=== PATIENT | female | born 1975 | race Caucasian/White ===

== ENCOUNTER 2017-02-05 09:51 | Observation (INO) | payer OTHER ==
[2017-02-05 12:04] LABS: Glucose,Whole Blood 301 mg/dL (75-99)
[2017-02-05 12:06] VITALS: RESP 16
[2017-02-05] MEDS ORDERED: ONDANSETRON 4 MG/2 ML VIAL IVP PRN (13:34)
[2017-02-05] MEDS ORDERED: SODIUM CHLORIDE 0.9% 1,000 ML IV SCH (13:45)
[2017-02-05] MEDS ORDERED: PANTOPRAZOLE 40 MG/10 ML VIAL IVP SCH (13:45)
[2017-02-05] MEDS ORDERED: KETOTIFEN 0.025% OPHTH DROPS 5 ML BTL BOTH EYES PRN (13:55)
[2017-02-05] MEDS ORDERED: ALPRAZolam 0.25 MG TAB PO PRN (13:55)
[2017-02-05] MEDS ORDERED: IBUPROFEN 800 MG TAB PO PRN (13:55)
[2017-02-05] MEDS ORDERED: GABAPENTIN 300 MG CAP PO SCH (14:00)
[2017-02-05] MEDS ORDERED: metFORMIN 500 MG TAB PO SCH (14:00)
[2017-02-05] MEDS ORDERED: CITALOPRAM HYDROBROMIDE 20 MG TAB PO SCH (14:00)
[2017-02-05] MEDS ORDERED: FAMOTIDINE 20 MG TAB PO SCH (14:00)
[2017-02-05 14:10] LABS: Basophils # (A) 0.1 k/uL (0-0.2); Basophils % (A) 1 %; CH 27.1; CHCM 34.5; Eosinophils # (A) 0.1 k/uL (0-0.7); Eosinophils % (A) 1 %; HCT 37.2 % (34.0-46.0); HDW 3.14; Luc # (Auto) 0.18; Luc % (Auto) 2; Lymphocytes # (A) 1.9 k/uL (1.0-4.8); Lymphocytes % (A) 17 %; MCH 27.6 pg (25.0-35.0); MCHC 35.1 g/dL (31.0-37.0); MCV 78.8 fL (80.0-100.0); Mean Platelet Volume 7.2; Monocytes # (A) 0.4 k/uL (0-1.0); Monocytes % (A) 4 %; Neutrophils # (A) 8.4 k/uL (1.3-7.7); Neutrophils % (A) 76 %; RBC 4.72 m/uL (3.80-5.40); RDW 13.7 % (11.5-15.5); WBC 11.2 k/uL (3.8-10.6); WBC (Perox) 11.54
[2017-02-05 14:19] VITALS: BMI 27.3
[2017-02-05 14:33] LABS: ALT 34 U/L (9-52); AST 16 U/L (14-36); Alkaline Phosphatase 138 U/L (38-126); Anion Gap 9 mmol/L; Blood Urea Nitrogen 8 mg/dL (7-17); Calcium 8.7 mg/dL (8.4-10.2); Carbon Dioxide 25 mmol/L (22-30); Chloride 100 mmol/L (98-107); Glucose 267 mg/dL (74-99); Non-African American GFR(MDRD) >60 (>60 ml/min/1.73 sqM); Potassium 4.6 mmol/L (3.5-5.1); Sodium 134 mmol/L (137-145); Total Bilirubin 0.3 mg/dL (0.2-1.3); Total Protein 6.4 g/dL (6.3-8.2)
[2017-02-05] MEDS ORDERED: TEMAZEPAM 15 MG CAP PO PRN (15:14)
[2017-02-05] MEDS ORDERED: traMADol 50 MG TAB PO PRN (15:14)
[2017-02-05] MEDS ORDERED: LORazepam 0.5 MG TAB PO PRN (15:14)
[2017-02-05 15:34] VITALS: BP 131/87; PULSE 88; TEMP 97.9
[2017-02-05] MEDS ORDERED: INSULIN LISPRO (humaLOG) 300 UNIT/3 ML VIAL SQ SCH (17:30)
[2017-02-05] MEDS ORDERED: INSULIN GLARGINE 100 UNIT/ML 10 ML VIAL SQ SCH (21:00)
[2017-02-06 14:32] LABS: Hemoglobin A1C 12.4 % (4.2-6.1)
--- NOTE | 2017-02-06 19:30 | HP ---
CHIEF COMPLAINT: Abdominal pain. Hematuria. HISTORY OF PRESENT ILLNESS: This 41 year old woman with past medical history of asthma, diabetes mellitus, hypertension, hyperlipidemia, being followed by a primary physician in the [place] area was having complaints of left loin pain about two weeks ago with hematuria. The patient was evaluated and subsequently the patient had complaints of pain and the patient went to [facility] again. The patient also had complaints of abdominal pain also. CT scan showed multiple abnormalities including hepatomegaly with multiple probably masses 4.3 cm cystic mass in the left ovary. The patient was subsequently referred to [facility] as a directed admission and was admitted for further evaluation and treatment. There is no history of any fever , rigors or chills. No history of headache, loss of consciousness or seizures. Past medical history of asthma, diabetes mellitus, hyperlipidemia, hypertension. Medications are home medications are: 1. Yeast. 2. Glucophage 1000 mg po b.i.d. 3. one drop both eyes daily prn. 4. Lantus 30 units subcu daily. 5. Motrin 800 mg po b.i.d. 6. Neurontin 600 mg po b.i.d. 7. Celexa 40 mg daily. 8. Xanax 0.25 mg b.i.d. prn. 9. Zantac 150 mg po b.i.d. prn. ALLERGIES: MORPHINE. FAMILY HISTORY: History of CVA/TIA. Dementia. SOCIAL HISTORY: Previous history of smoking. No history of current smoking. No alcohol intake. REVIEW OF SYSTEMS: ENT: No diminished vision. No diminished hearing. CARDIOVASCULAR: No angina or palpitations. RESPIRATORY: as mentioned earlier. GI: As mentioned earlier. : As mentioned earlier. NERVOUS SYSTEM: No numbness or weakness. ALLERGY/IMMUNOLOGY: No asthma or hayfever. MUSCULOSKELETAL: As mentioned earlier. HEMATOLOGY/ONCOLOGY: No history of anemia. ENDOCRINE: As mentioned earlier. CONSTITUTIONAL: As mentioned earlier. DERMATOLOGY: Negative. RHEUMATOLOGY: Negative. PSYCHIATRIC: As mentioned earlier. PHYSICAL EXAM: Alert and oriented times three. Pulse 91. Blood pressure 192/ 84. Respirations 16. Temperature 98.2. Pulse ox 97% on room air. HEENT: Conjunctivae normal. Oral mucosa moist. NECK: No JVD. No carotid bruit. No lymph node enlargement. CARDIOVASCULAR: S1, S2 normal. No S3, no S4. RESPIRATORY: Breath sounds diminished at the bases. A few rhonchi. No crackles. ABDOMEN: Soft, mild diffuse tenderness on palpation. No guarding. No rigidity. No mass palpable. No ascites. No hepatosplenomegaly. LEGS: No edema. No swelling. NERVOUS SYSTEM: Higher functions as mentioned earlier. Moves all four limbs. No focal motor or sensory deficits. LYMPHATICS: No lymph nodes palpable in the neck, axillae or groin. SKIN: No ulcer, rash or bleeding. LABS: WBC ntd hemoglobin 13. Sodium 134. ASSESSMENT: 1. Abdominal pain, hematuria for evaluation, rule out acute glomerular nephritis. 2. Hepatomegaly with multiple hepatic masses. 3. 4.3 cm cystic left ovarian mass. 4. Hyponatremia. 5. Diabetes mellitus Type 2. 6. Asthma. 7. Increased WBC. 8. History of hyperlipidemia. 9. History of chronic yeast infection. 10. History of migraines. 12. Anxiety, depression. 13. FULL CODE. RECOMMENDATIONS AND DISCUSSION: In this 41 year old woman who presented with multiple complex medical issues, we will monitor the patient closely, continue the current medications, continue symptomatic treatment. Otherwise, at this time monitor blood sugars closely. I would also recommend ultrasound of the abdomen to evaluate the liver masses further. Dr. Spivey and nephrology will be consulted. Prognosis guarded because of multiple complex medical issues. Symptomatic treatment for the pain also will be provided. Further recommendations to follow. See orders for further details. MTDD
--- NOTE | 2017-02-07 08:56 | DS ---
FINAL DIAGNOSES: 1. Abdominal pain with hematuria, for evaluation. 2. Multiple hepatic masses for evaluation. DISCHARGE DISPOSITION: Patient LEFT THE HOSPITAL AGAINST MEDICAL ADVICE. HISTORY OF PRESENT ILLNESS: This 41-year-old woman with a past medical history of multiple medical problems, referred from [facility], was admitted with abdominal pain, hematuria, hepatic masses and complex ovarian cyst is suspected but; however, the patient LEFT THE HOSPITAL AGAINST MEDICAL ADVICE. The prognosis is guarded for the hospital stay. Please refer to the multiple notes for further information. Prognosis is guarded. MTDD
== END 2017-02-05 16:30 | disposition left against medical advice (07) ==
LOC: INTOOBSV 11:15 → 3SUR 11:15
PROVIDERS: ADMIT Internal Medicine; ATTEND Internal Medicine
DX: R10.9 Unspecified abdominal pain (principal); Z53.21 Procedure and treatment not carried out due to patient leaving prior to being seen by health care provider; R31.9 Hematuria, unspecified; R16.0 Hepatomegaly, not elsewhere classified; N83.9 Noninflammatory disorder of ovary, fallopian tube and broad ligament, unspecified; E87.1 Hypo-osmolality and hyponatremia; E11.9 Type 2 diabetes mellitus without complications; E78.5 Hyperlipidemia, unspecified; F41.9 Anxiety disorder, unspecified; I10 Essential (primary) hypertension; F32.9 Major depressive disorder, single episode, unspecified; Z79.4 Long term (current) use of insulin; Z79.84 Long term (current) use of oral hypoglycemic drugs; Z79.899 Other long term (current) drug therapy; Z87.891 Personal history of nicotine dependence; Z88.5 Allergy status to narcotic agent; Z79.1 Long term (current) use of non-steroidal anti-inflammatories (NSAID)
CPT/HCPCS: 80053; 83036; 85025; G0379; G0378; J2405

== ENCOUNTER 2017-03-17 04:13 | Inpatient (IN) | payer OTHER ==
--- NOTE | 2017-03-17 05:24 | ED ---
Abdominal Pain HPI - General Chief Complaint: Abdominal Pain Stated Complaint: Abdominal Pain Time Seen by Provider: 03/17/17 04:33 Source: patient, EMS Mode of arrival: EMS Limitations: no limitations - History of Present Illness Initial Comments: This patient is a 42-year-old woman who presents as a transfer patient from [facility]. The patient had gone there tonight related to left flank pain. She states she first started having these pains probably a couple months ago. It is aching, cramping, pressure feeling. It has been getting better and worse over that time. But tonight became much more severe so she sought treatment there. She states she has also been having intermittent hematuria for about 2-3 months. The patient had a computed tomography scan that showed some sort of left kidney mass and she did follow-up with Dr. Hobbs of urology and she was told that she needed to have another computed tomography scan but her insurance would not cover that until the next month. The patient states that tonight the pain became severe, constant, and she did not note any worsening or relieving factors. She has had the hematuria accompanying. She states that also over the course the past 2 months she has probably lost over 15 pounds. MD Complaint: abdominal pain, flank pain Onset/Timin -: month(s) Location: LLQ, L flank Radiation: none Migration to: no migration Severity: severe Quality: fullness, other (Pressure) Consistency: constant Improves With: nothing Worsens With: nothing Associated Symptoms: hematuria, anorexia - Related Data Home Medications Medication Instructions Recorded Confirmed ALPRAZolam [Xanax] 0.25 mg PO BID PRN 02/05/17 02/05/17 Azo Yeast 1 tab PO TID PRN 02/05/17 02/05/17 Citalopram Hydrobromide [CeleXA] 40 mg PO DAILY 02/05/17 02/05/17 Gabapentin [Neurontin] 600 mg PO BID 02/05/17 02/05/17 Ibuprofen [Motrin] 800 mg PO BID 02/05/17 02/05/17 Insulin Glargine [Lantus] 30 unit SQ DAILY 02/05/17 02/05/17 Ketotifen Fumarate [Alaway] 1 drop BOTH EYES DAILY PRN 02/05/17 02/05/17 Ranitidine HCl [Zantac] 150 mg PO BID PRN 02/05/17 02/05/17 metFORMIN HCL [Glucophage] 1,000 mg PO BID 02/05/17 02/05/17 Allergies Allergy/AdvReac Type Severity Reaction Status Date / Time morphine Allergy Rash/Hives, Verified 02/05/17 15:05 ITCHING Review of Systems ROS Statement: Those systems with pertinent positive or pertinent negative responses have been documented in the HPI. ROS Other: All systems not noted in ROS Statement are negative. Constitutional: Reports: as per HPI, weight change. Denies: fever, chills, weakness Respiratory: Denies: cough, dyspnea Cardiovascular: Denies: chest pain, palpitations, edema, syncope Gastrointestinal: Reports: as per HPI, abdominal pain. Denies: nausea, vomiting , diarrhea, constipation, melena, hematochezia Genitourinary: Reports: as per HPI, dysuria, hematuria. Denies: discharge Musculoskeletal: Reports: as per HPI, back pain Skin: Denies: rash Neurological: Denies: headache, weakness, numbness Past Medical History Past Medical History: Asthma, Diabetes Mellitus, Eye Disorder, Hyperlipidemia, Neurologic Disorder Additional Past Medical History / Comment(s): CHRONIC YEAST INFECCTION, CHRONIC JOINT PAIN, ABDOMINAL HERNIA, NEUROPATHY, OVARIAN CYSTS, INGROWN TOENAILS BILATERAL BIG TOE WITH SURGERY, IBS, MIGRAINES, TAILBONE FRACTURE 2013, ECZEMA, HEMORRHOIDS History of Any Multi-Drug Resistant Organisms: None Reported Past Surgical History: Section, Cholecystectomy, Uterine Ablation Past Anesthesia/Blood Transfusion Reactions: No Reported Reaction Past Psychological History: ADD/ADHD, Anxiety, Depression Smoking Status: Never smoker Past Alcohol Use History: None Reported Past Drug Use History: None Reported - Past Family History Mother Family Medical History: CVA/TIA Additional Family Medical History / Comment(s): ALZHEIMER'S General Exam Limitations: no limitations General appearance: alert, in no apparent distress Head exam: Present: atraumatic, normocephalic Eye exam: Present: normal appearance. Absent: scleral icterus, conjunctival injection Respiratory exam: Present: normal lung sounds bilaterally. Absent: respiratory distress, wheezes, rales, rhonchi, stridor Cardiovascular Exam: Present: regular rate, normal rhythm, normal heart sounds. Absent: systolic murmur, diastolic murmur, rubs, gallop GI/Abdominal exam: Present: soft, tenderness (There is moderate left-sided abdominal tenderness without rebound or guarding). Absent: distended, guarding , rebound, rigid, mass, pulsatile mass, hernia Extremities exam: Present: normal inspection, normal capillary refill. Absent: pedal edema, calf tenderness Back exam: Present: normal inspection, CVA tenderness (L). Absent: CVA tenderness (R) Neurological exam: Present: alert Skin exam: Present: warm, dry, intact, normal color. Absent: rash Course Vital Signs 03/17/17 03/17/17 04:16 05:19 Temperature 97.6 F Pulse Rate 81 80 Respiratory 18 18 Rate Blood Pressure 142/77 142/86 O2 Sat by Pulse 95 98 Oximetry Disposition Clinical Impression: Abdominal pain, Left renal mass, Flank pain Disposition: ADMITTED IP TO THIS [facility] Condition: Fair Referrals: Nonstaff,Physician [Primary Care Provider] - 1-2 days
[2017-03-17] MEDS ORDERED: ONDANSETRON 4 MG/2 ML VIAL IVP PRN (05:27)
[2017-03-17] MEDS ORDERED: NALOXONE 0.4 MG/ML 1 ML VIAL IV PRN (05:27)
[2017-03-17] MEDS ORDERED: MORPHINE SULFATE 4 MG/ML SYRINGE IV PRN (05:27)
[2017-03-17] MEDS ORDERED: FAMOTIDINE 20 MG TAB PO PRN (05:31)
[2017-03-17] MEDS: SODIUM CHLORIDE 0.9% 1,000 ML IV SCH (05:38)
[2017-03-17 08:07] LABS: Glucose,Whole Blood 201 mg/dL (75-99)
[2017-03-17] MEDS: CITALOPRAM HYDROBROMIDE 20 MG TAB PO SCH (08:08)
[2017-03-17] MEDS: GABAPENTIN 300 MG CAP PO SCH ×3 (08:08→22:00)
[2017-03-17] MEDS: metFORMIN 500 MG TAB PO SCH ×3 (08:09→22:07)
[2017-03-17] MEDS: INSULIN GLARGINE 100 UNIT/ML 10 ML VIAL SQ SCH (08:11)
[2017-03-17] MEDS: ALPRAZolam 0.25 MG TAB PO PRN (10:04)
[2017-03-17 10:22] LABS: Basophils % (A) 0 %; CH 27.5; CHCM 34.4; Eosinophils # (A) 0.1 k/uL (0-0.7); Eosinophils % (A) 1 %; HCT 34.3 % (34.0-46.0); HDW 2.88; HGB 11.4 gm/dL (11.4-16.0); Luc # (Auto) 0.25; Luc % (Auto) 3; Lymphocytes # (A) 2.2 k/uL (1.0-4.8); Lymphocytes % (A) 24 %; MCH 26.6 pg (25.0-35.0); MCHC 33.2 g/dL (31.0-37.0); MCV 80.4 fL (80.0-100.0); Mean Platelet Volume 8.5; Monocytes # (A) 0.4 k/uL (0-1.0); Monocytes % (A) 5 %; Neutrophils # (A) 6.1 k/uL (1.3-7.7); Neutrophils % (A) 67 %; RBC 4.26 m/uL (3.80-5.40); RDW 14.3 % (11.5-15.5); WBC 9.1 k/uL (3.8-10.6); WBC (Perox) 9.47
[2017-03-17 10:39] LABS: Anion Gap 10 mmol/L; Blood Urea Nitrogen 11 mg/dL (7-17); Calcium 8.2 mg/dL (8.4-10.2); Carbon Dioxide 22 mmol/L (22-30); Chloride 103 mmol/L (98-107); Glucose 283 mg/dL (74-99); Non-African American GFR(MDRD) >60 (>60 ml/min/1.73 sqM); Sodium 135 mmol/L (137-145)
[2017-03-17] MEDS ORDERED: RX INFO: IV CONTRAST WAS GIVEN 1 EACH MISC MISCELLANE PRN ×3 (10:45→20:09)
--- NOTE | 2017-03-17 10:54 | P.HPIM ---
History of Present Illness H&P Date: 03/17/17 Chief Complaint: Left-sided abdomin 42-year-old female comes in the hospital with complaints of left-sided abdominal pain this is ongoing for about 6 weeks. Patient states that her pain is unbearable hence came to the hospital for further evaluation. Patient was admitted to the hospital on 02/15/2017 with the hematuria at that time patient apparently had a computed tomography scan of the abdomen that was done at [facility] was noted to have multiple abnormalities including hepatomegaly cystic mass in the left ovary according to the previous documentation Patient was also noted to have a suspicious mass in the left kidney as well Patient today states that she has intermittent blood in her urine denies having any fevers chills nausea. Patient states that the her last menstrual cycle was one month ago. Patient apparently has seen a urologist was supposed to follow up in the future however states that she does not know what the plan is at this time Rates the pain as a 7 out of 10 nonradiating , no alleviating factors are described. Review of Systems All systems: negative (noted in hpi) Past Medical History Past Medical History: Asthma, Diabetes Mellitus, Eye Disorder, Hyperlipidemia, Neurologic Disorder Additional Past Medical History / Comment(s): CHRONIC YEAST INFECCTION, CHRONIC JOINT PAIN, ABDOMINAL HERNIA, NEUROPATHY, OVARIAN CYSTS, INGROWN TOENAILS BILATERAL BIG TOE WITH SURGERY, IBS, MIGRAINES, TAILBONE FRACTURE 2013, ECZEMA, HEMORRHOIDS History of Any Multi-Drug Resistant Organisms: None Reported Past Surgical History: Section, Cholecystectomy, Uterine Ablation Past Anesthesia/Blood Transfusion Reactions: No Reported Reaction Past Psychological History: ADD/ADHD, Anxiety, Depression Smoking Status: Never smoker Past Alcohol Use History: None Reported Past Drug Use History: None Reported - Past Family History Mother Family Medical History: CVA/TIA Additional Family Medical History / Comment(s): ALZHEIMER'S Medications and Allergies Home Medications Medication Instructions Recorded Confirmed Type Citalopram Hydrobromide [CeleXA] 40 mg PO DAILY 02/05/17 03/17/17 History Gabapentin [Neurontin] 600 mg PO DAILY 02/05/17 03/17/17 History Ibuprofen [Motrin] 800 mg PO BID 02/05/17 03/17/17 History Ketotifen Fumarate [Alaway] 1 drop BOTH EYES DAILY PRN 02/05/17 03/17/17 History glipiZIDE [Glucotrol] 5 mg PO DAILY 03/17/17 03/17/17 History Allergies Allergy/AdvReac Type Severity Reaction Status Date / Time morphine Allergy Rash/Hives, Verified 03/17/17 07:41 ITCHING Physical Exam Vitals: Vital Signs Temp Pulse Pulse Resp BP BP Pulse Ox 03/17/17 10:07 98.0 F 89 18 139/86 100 03/17/17 08:00 97.9 F 80 16 129/63 99 03/17/17 06:29 75 18 123/77 98 03/17/17 05:19 80 18 142/86 98 03/17/17 04:16 97.6 F 81 18 142/77 95 Intake and Output 03/16/17 03/17/17 03/17/17 22:59 06:59 14:59 Other: Voiding Method Toilet # Voids 1 Weight 72 kg 72.121 kg Patient Weight 03/18/17 06:59 Weight 72.121 kg Physical exam Gen. appearance oriented 3 in no distress Neck is supple no JVD Lungs good air entry clear to auscultation no rhonchi or wheezing Heart S1-S2 heard regular rate and rhythm no murmurs appreciated Abdomen of sided flank pain is reproducible no mass appreciated Neurologically cranial nerves II-12 grossly intact no focal motor or sensory deficits noted Skin no abnormalities appreciated Results CBC & Chem 7: 03/17/17 10:10 03/17/17 10:10 Labs: Abnormal Lab Results - Last 24 Hours (Table) 03/17/17 03/17/17 Range/Units 07:47 10:10 Sodium 135 L (137-145) mmol/L Creatinine 0.50 L (0.52-1.04) mg/dL Glucose 283 H (74-99) mg/dL POC Glucose (mg/dL) 201 H (75-99) mg/dL Calcium 8.2 L (8.4-10.2) mg/dL Thrombosis Risk Factor Assmnt - Choose All That Apply Any of the Below Risk Factors Present?: No Assessment and Plan Plan: 1 left-sided flank pain, unknown etiology #2 hematuria suspicion for RCC #3 anxiety #4 diabetes mellitus type 2 #5 obesity #6 unintentional weight loss Plan We'll obtain a computed tomography scan of the abdomen with IV contrast Patient had a suspicion left-sided ovarian mass as well. Patient however left AGAINST MEDICAL ADVICE in the past admission Once we obtain the imaging study further workup be done
[2017-03-17 11:37] LABS: ALT 22 U/L (9-52); AST 14 U/L (14-36); Alkaline Phosphatase 90 U/L (38-126); Total Bilirubin 0.3 mg/dL (0.2-1.3); Total Protein 5.7 g/dL (6.3-8.2)
[2017-03-17 12:11] LABS: Glucose,Whole Blood 273 mg/dL (75-99)
[2017-03-17 13:29] LABS: Appearance,Urine Clear (Clear); Bilirubin,Urine Negative (Negative); Glucose,Urine (UA) 4+ (Negative); Ketones,Urine Negative (Negative); Leukocyte Esterase,Urine Negative (Negative); Mucus,Urine Rare /hpf; Nitrite,Urine Negative (Negative); Particle Count 1339; Protein,Urine Negative (Negative); RBC,Urine 3 /hpf (0-5); Specific Gravity,Urine 1.006 (1.001-1.035); Squamous Epithelial Cell,Urine 2 /hpf (0-4); UA Billing (MACRO vs. MICRO) MICRO; Urobilinogen,Urine <2.0 mg/dL (<2.0); WBC,Urine 1 /hpf (0-5)
--- NOTE | 2017-03-17 13:42 | CT ---
EXAMINATION TYPE: CT abdomen pelvis w con DATE OF EXAM: 03/17/2017 COMPARISON: NONE INDICATION: Renal Mass DLP: 1630 mGycm, Automated exposure control for dose reduction was used. CONTRAST: 100 mL of Omnipaque 300. Study performed without Oral Contrast TECHNIQUE: Axial images were obtained from above the diaphragm to the pubic rami in the axial plane a t 5 mm thick sections. Reconstructed images are reviewed on the computer in the coronal plane. FINDINGS: Limited CT sections are obtained the lung bases. The lung bases are clear. Minimal left pleural eff usion is present. CT ABDOMEN: Liver: Normal Spleen: Normal Pancreas: Normal Adrenal glands: The adrenal glands are normal. Gallbladder: Surgically absent Kidneys: Mid and superior left kidney has diminished contrast. Inflammatory changes are adjacent. No underlying superior renal collecting system mass may be present measuring 2.2 cm. In the coronal plan e there is a suggestion of a 3.0 cm mass at the superior lateral pole vessels imaged: Spine image 55. Large perinephric lymph nodes appear to be present adjacent to the renal vein. Findings are very sug gestive for superior pole renal mass. Clinical consideration for renal infarct and/or pyelonephritis is recommended. Adjacent to the renal artery and vein are 2 1.6 cm masses with slightly hypodense centers. Differenti al could include lymphadenopathy. Small abscesses are considered less likely. Right kidney appears unremarkable without masses cysts or hydronephrosis. Obvious thrombus within the inferior vena cava is not identified, however this is limited in evaluation. Aorta: Normal Inferior vena cava: Normal as visualized. CT PELVIS: Small periumbilical fat-containing hernia may be present. Loops of bowel within the abdomen and pelvis are normal. Loops of bowel lacking oral contrast tripathi iting their evaluation. Appendix: Normal as visualized. Urinary bladder: Decompressed with limited evaluation. Genitourinary structures: Uterus is normal. Renal cysts are present on the left. Right ovary appears unremarkable. Osseous structures: No suspicious lytic or sclerotic lesions. Sacroiliac joint degenerative changes a re present. Report was called to Jennifer, the patient's nurse by Dr. Kemp by telephone at time of final interpret ation. IMPRESSIONS: 1. Diminished perfusion of the superior and mid left kidney. Underlying mass in the superior lateral pole may be present. Mass within the superior renal collecting system without obvious hydronephrosis should also be considered. Differential could include pyelonephritis and renal infarct. 2. Suspected left perirenal artery lymphadenopathy enlarged by CT criteria 1.6 cm. 3. Minimal left pleural effusion.
[2017-03-17 17:37] LABS: Glucose,Whole Blood 232 mg/dL (75-99)
[2017-03-17] MEDS ORDERED: IOHEXOL 350 MG/ML 25 ML BOTTLE (ORAL USE) PO PRN (20:09)
--- NOTE | 2017-03-17 20:14 | P.GSCN ---
History of Present Illness Consult date: 03/17/17 Reason for Consult: Left Renal Mass Requesting physician: Kasey Childress History of present illness: The patient is a 42 year old white female with uncontrolled diabetes mellitus. She has experienced gross hematuria and left flank pain for over 2 months. She was seen in [place], and a CT scan showed a left renal/adrenal abscess. She has been treated with Cipro and Bactrim DS. She states that her symptoms improve while on antibiotics, but worsen when the antibiotics were discontinued. Urine cytology was negative. She was seen in the emergency room yesterday at [facility] because of increased pain, and a repeat computed tomography scan without IV contrast showed a poorly defined left renal abnormality with a soft tissue-like mass within the left renal hilum and para-aortic region. Review of Systems - Constitutional Reports chills - Gastrointestinal Reports abdominal pain, Reports nausea - Genitourinary Genitourinary: Reports dysuria, Reports hematuria Past Medical History Past Medical History: Asthma, Diabetes Mellitus, Eye Disorder, Hyperlipidemia, Neurologic Disorder Additional Past Medical History / Comment(s): CHRONIC YEAST INFECCTION, CHRONIC JOINT PAIN, ABDOMINAL HERNIA, NEUROPATHY, OVARIAN CYSTS, INGROWN TOENAILS BILATERAL BIG TOE WITH SURGERY, IBS, MIGRAINES, TAILBONE FRACTURE 2013, ECZEMA, HEMORRHOIDS History of Any Multi-Drug Resistant Organisms: None Reported Past Surgical History: Section, Cholecystectomy, Uterine Ablation Past Anesthesia/Blood Transfusion Reactions: No Reported Reaction Past Psychological History: ADD/ADHD, Anxiety, Depression Smoking Status: Never smoker Past Alcohol Use History: None Reported Past Drug Use History: None Reported - Past Family History Mother Family Medical History: CVA/TIA Additional Family Medical History / Comment(s): ALZHEIMER'S Medications and Allergies Home Medications Medication Instructions Recorded Confirmed Type Citalopram Hydrobromide [CeleXA] 40 mg PO DAILY 02/05/17 03/17/17 History Gabapentin [Neurontin] 600 mg PO DAILY 02/05/17 03/17/17 History Ibuprofen [Motrin] 800 mg PO BID 02/05/17 03/17/17 History Ketotifen Fumarate [Alaway] 1 drop BOTH EYES DAILY PRN 02/05/17 03/17/17 History glipiZIDE [Glucotrol] 5 mg PO DAILY 03/17/17 03/17/17 History Allergies Allergy/AdvReac Type Severity Reaction Status Date / Time morphine Allergy Rash/Hives, Verified 03/17/17 07:41 ITCHING Surgical - Exam Vital Signs Temp Pulse Resp BP Pulse Ox 97.6 F 81 18 142/77 95 03/17/17 04:16 03/17/17 04:16 03/17/17 04:16 03/17/17 04:16 03/17/17 04:16 - General well developed, well nourished, moderate distress - Respiratory normal respiratory effort - Abdomen Abdomen: soft, tender (mild left-sided tenderness), no guarding, no rebound, no distended - Psychiatric oriented to time, oriented to person, oriented to place, speech is normal, memory intact Results - Labs 03/17/17 10:10 03/17/17 10:10 Abnormal Lab Results - Last 24 Hours (Table) 03/17/17 03/17/17 Range/Units 07:47 10:10 Sodium 135 L (137-145) mmol/L Creatinine 0.50 L (0.52-1.04) mg/dL Glucose 283 H (74-99) mg/dL POC Glucose (mg/dL) 201 H (75-99) mg/dL Calcium 8.2 L (8.4-10.2) mg/dL Diabetes panel 03/17/17 Range/Units 10:10 Sodium 135 L (137-145) mmol/L Potassium 4.0 (3.5-5.1) mmol/L Chloride 103 (98-107) mmol/L Carbon Dioxide 22 (22-30) mmol/L BUN 11 (7-17) mg/dL Creatinine 0.50 L (0.52-1.04) mg/dL Glucose 283 H (74-99) mg/dL Calcium 8.2 L (8.4-10.2) mg/dL Calcium panel 03/17/17 Range/Units 10:10 Calcium 8.2 L (8.4-10.2) mg/dL Pituitary panel 03/17/17 Range/Units 10:10 Sodium 135 L (137-145) mmol/L Potassium 4.0 (3.5-5.1) mmol/L Chloride 103 (98-107) mmol/L Carbon Dioxide 22 (22-30) mmol/L BUN 11 (7-17) mg/dL Creatinine 0.50 L (0.52-1.04) mg/dL Glucose 283 H (74-99) mg/dL Calcium 8.2 L (8.4-10.2) mg/dL Adrenal panel 03/17/17 Range/Units 10:10 Sodium 135 L (137-145) mmol/L Potassium 4.0 (3.5-5.1) mmol/L Chloride 103 (98-107) mmol/L Carbon Dioxide 22 (22-30) mmol/L BUN 11 (7-17) mg/dL Creatinine 0.50 L (0.52-1.04) mg/dL Glucose 283 H (74-99) mg/dL Calcium 8.2 L (8.4-10.2) mg/dL - Imaging CT scan - abdomen: report reviewed, image reviewed Assessment and Plan (1) Left renal mass Status: Acute Plan: In summary, the patient has a persistent significant left renal abnormality. By history, this appears to be an inflammatory process. 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 Urinalysis at [facility] showed the urine to be red in color, with 5-10 WBC, negative nitrate, small leukocyte esterase. I have ordered a urine culture, and a CT scan with contrast will be obtained for further evaluation. She states that she has not taken Metformin in the past 2 months. Time with Patient: Greater than 30
[2017-03-17 20:29] LABS: Glucose,Whole Blood 312 mg/dL (75-99)
[2017-03-17] MEDS: INSULIN LISPRO (humaLOG) 300 UNIT/3 ML VIAL SQ SCH ×2 (22:01)
[2017-03-18] MEDS ORDERED: INSULIN LISPRO (humaLOG) 300 UNIT/3 ML VIAL SQ SCH ×2 (07:30)
[2017-03-18 07:35] LABS: Basophils % (A) 0 %; CH 26.4; CHCM 33.7; Eosinophils # (A) 0.3 k/uL (0-0.7); Eosinophils % (A) 2 %; HDW 2.99; HGB 10.8 gm/dL (11.4-16.0); Luc # (Auto) 0.24; Luc % (Auto) 2; Lymphocytes # (A) 2.4 k/uL (1.0-4.8); Lymphocytes % (A) 23 %; MCH 26.6 pg (25.0-35.0); MCHC 33.8 g/dL (31.0-37.0); MCV 78.8 fL (80.0-100.0); Mean Platelet Volume 6.9; Monocytes # (A) 0.5 k/uL (0-1.0); Monocytes % (A) 5 %; Neutrophils # (A) 6.8 k/uL (1.3-7.7); Neutrophils % (A) 67 %; RBC 4.07 m/uL (3.80-5.40); RDW 13.8 % (11.5-15.5); WBC 10.2 k/uL (3.8-10.6); WBC (Perox) 10.25
[2017-03-18 07:56] LABS: Glucose,Whole Blood 164 mg/dL (75-99)
[2017-03-18 07:58] LABS: ALT 22 U/L (9-52); AST 12 U/L (14-36); Alkaline Phosphatase 81 U/L (38-126); Anion Gap 3 mmol/L; Blood Urea Nitrogen 7 mg/dL (7-17); Calcium 8.2 mg/dL (8.4-10.2); Carbon Dioxide 26 mmol/L (22-30); Chloride 105 mmol/L (98-107); Glucose 149 mg/dL (74-99); Non-African American GFR(MDRD) >60 (>60 ml/min/1.73 sqM); Sodium 134 mmol/L (137-145); Total Bilirubin 0.2 mg/dL (0.2-1.3); Total Protein 5.5 g/dL (6.3-8.2)
[2017-03-18] MEDS: INSULIN GLARGINE 100 UNIT/ML 10 ML VIAL SQ SCH (08:56)
[2017-03-18] MEDS: INSULIN LISPRO (humaLOG) 300 UNIT/3 ML VIAL SQ SCH ×7 (08:58→20:33)
[2017-03-18] MEDS: CITALOPRAM HYDROBROMIDE 20 MG TAB PO SCH (09:00)
[2017-03-18] MEDS: GABAPENTIN 300 MG CAP PO SCH ×2 (09:00→20:32)
[2017-03-18] MEDS: SODIUM CHLORIDE 0.9% 1,000 ML IV SCH (09:01)
[2017-03-18 09:22] LABS: Glucose,Whole Blood 324 mg/dL (75-99)
[2017-03-18] MEDS: ALPRAZolam 0.25 MG TAB PO PRN (09:23)
--- NOTE | 2017-03-18 09:47 | P.PN ---
Subjective The patient has left-sided flank pain with the renal mass is noted on the computed tomography scan. 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 This would be very probable given her diabetic state. She feels better on the antibiotics. The question is whether this can be treated successfully with antibiotics or whether she would require nephrectomy. Consult Dr. Leung of infectious disease for his opinion and then make a final decision after cultures and his consultation. Objective - Vital Signs Vital signs: Vital Signs Temp 98.5 F 03/18/17 07:00 Pulse 90 03/18/17 07:00 Resp 16 03/18/17 07:00 BP 123/71 03/18/17 07:00 Pulse Ox 92 L 03/18/17 07:00 Intake & Output 03/17/17 03/18/17 03/18/17 18:59 06:59 18:59 Intake Total 960 Balance 960 Weight 72.121 kg Intake: Intake, IV Titration 320 Amount Sodium Chloride 0.9% 1, 320 000 ml @ 20 mls/hr IV . Q24H [facility] Rx#:[id number] Oral 640 Other: Voiding Method Toilet Toilet # Voids 2 2 - Labs CBC & Chem 7: 03/18/17 07:06 03/18/17 07:06 Labs: Abnormal Lab Results - Last 24 Hours (Table) 03/17/17 03/17/17 03/17/17 Range/Units 10:10 11:50 12:08 Hgb (11.4-16.0) gm/dL Hct (34.0-46.0) % MCV (80.0-100.0) fL Sodium 135 L (137-145) mmol/L Creatinine 0.50 L (0.52-1.04) mg/dL Glucose 283 H (74-99) mg/dL POC Glucose (mg/dL) 273 H (75-99) mg/dL Calcium 8.2 L (8.4-10.2) mg/dL AST (14-36) U/L Total Protein 5.7 L (6.3-8.2) g/dL Albumin 3.1 L (3.5-5.0) g/dL Urine Glucose (UA) 4+ H (Negative) Urine Blood Moderate H (Negative) Urine Mucus Rare H (None) /hpf 03/17/17 03/17/17 03/18/17 Range/Units 17:35 20:26 07:06 Hgb 10.8 L (11.4-16.0) gm/dL Hct 32.0 L (34.0-46.0) % MCV 78.8 L (80.0-100.0) fL Sodium (137-145) mmol/L Creatinine (0.52-1.04) mg/dL Glucose (74-99) mg/dL POC Glucose (mg/dL) 232 H 312 H (75-99) mg/dL Calcium (8.4-10.2) mg/dL AST (14-36) U/L Total Protein (6.3-8.2) g/dL Albumin (3.5-5.0) g/dL Urine Glucose (UA) (Negative) Urine Blood (Negative) Urine Mucus (None) /hpf 03/18/17 03/18/17 03/18/17 Range/Units 07:06 07:30 09:19 Hgb (11.4-16.0) gm/dL Hct (34.0-46.0) % MCV (80.0-100.0) fL Sodium 134 L (137-145) mmol/L Creatinine 0.48 L (0.52-1.04) mg/dL Glucose 149 H (74-99) mg/dL POC Glucose (mg/dL) 164 H 324 H (75-99) mg/dL Calcium 8.2 L (8.4-10.2) mg/dL AST 12 L (14-36) U/L Total Protein 5.5 L (6.3-8.2) g/dL Albumin 2.8 L (3.5-5.0) g/dL Urine Glucose (UA) (Negative) Urine Blood (Negative) Urine Mucus (None) /hpf
[2017-03-18 11:39] LABS: Glucose,Whole Blood 286 mg/dL (75-99)
[2017-03-18 14:17] LABS: Hemoglobin A1C 11.2 % (4.2-6.1)
[2017-03-18] MEDS: cefTRIAXone 2,000 MG in SODIUM CHLORIDE 0.9% 100 ML IVPB SCH (14:27)
[2017-03-18 16:16] LABS: Appearance,Urine Cloudy (Clear); Bacteria,Urine Occasional /hpf; Bilirubin,Urine Negative (Negative); Glucose,Urine (UA) 3+ (Negative); Ketones,Urine Negative (Negative); Leukocyte Esterase,Urine Small (Negative); Mucus,Urine Rare /hpf; Nitrite,Urine Negative (Negative); Particle Count 8533; Protein,Urine 1+ (Negative); RBC,Urine 89 /hpf (0-5); Specific Gravity,Urine 1.018 (1.001-1.035); Squamous Epithelial Cell,Urine 16 /hpf (0-4); UA Billing (MACRO vs. MICRO) MICRO; Urobilinogen,Urine <2.0 mg/dL (<2.0); WBC,Urine 10 /hpf (0-5)
--- NOTE | 2017-03-18 16:58 | P.PN ---
Subjective 42-year-old female comes in the hospital with complaints of left-sided abdominal pain this is ongoing for about 6 weeks. Patient states that her pain is unbearable hence came to the hospital for further evaluation. Patient was admitted to the hospital on 02/15/2017 with the hematuria at that time patient apparently had a computed tomography scan of the abdomen that was done at [facility] was noted to have multiple abnormalities including hepatomegaly cystic mass in the left ovary according to the previous documentation Patient was also noted to have a suspicious mass in the left kidney as well Patient today states that she has intermittent blood in her urine denies having any fevers chills nausea. Patient states that the her last menstrual cycle was one month ago. Patient apparently has seen a urologist was supposed to follow up in the future however states that she does not know what the plan is at this time Rates the pain as a 7 out of 10 nonradiating , no alleviating factors are described. 03/18/2017 Patient continues to have flank pain no fevers chills nausea vomiting or diarrhea. Physical exam Gen. appearance oriented 3 in no distress Neck is supple no JVD Lungs good air entry clear to auscultation no rhonchi or wheezing Heart S1-S2 heard regular rate and rhythm no murmurs appreciated Abdomen of sided flank pain is reproducible no mass appreciated Neurologically cranial nerves II-12 grossly intact no focal motor or sensory deficits noted Skin no abnormalities appreciated Objective - Vital Signs Vital signs: Vital Signs Temp 98.6 F 03/18/17 15:00 Pulse 90 03/18/17 16:00 Resp 16 03/18/17 16:00 BP 129/66 03/18/17 15:00 Pulse Ox 97 03/18/17 15:00 Intake & Output 03/17/17 03/18/17 03/18/17 18:59 06:59 18:59 Intake Total 960 890 Balance 960 890 Weight 72.121 kg 72.121 kg Intake: Intake, IV Titration 320 650 Amount Sodium Chloride 0.9% 1, 320 000 ml @ 20 mls/hr IV . Q24H [facility] Rx#:[id number] cefTRIAXone 2,000 mg In 650 Sodium Chloride 0.9% 100 ml @ 100 mls/hr IVPB DAILY@1200 [facility] Rx#: [id number] Oral 640 240 Other: Voiding Method Toilet Toilet Toilet # Voids 2 2 2 # Bowel Movements 3 - Labs CBC & Chem 7: 03/18/17 07:06 03/18/17 07:06 Labs: Abnormal Lab Results - Last 24 Hours (Table) 03/17/17 03/17/17 03/17/17 Range/Units 10:10 17:35 20:26 Hgb (11.4-16.0) gm/dL Hct (34.0-46.0) % MCV (80.0-100.0) fL Sodium (137-145) mmol/L Creatinine (0.52-1.04) mg/dL Glucose (74-99) mg/dL POC Glucose (mg/dL) 232 H 312 H (75-99) mg/dL Hemoglobin A1c 11.2 H (4.2-6.1) % Calcium (8.4-10.2) mg/dL AST (14-36) U/L Total Protein (6.3-8.2) g/dL Albumin (3.5-5.0) g/dL Urine Appearance (Clear) Urine Protein (Negative) Urine Glucose (UA) (Negative) Urine Blood (Negative) Ur Leukocyte Esterase (Negative) Urine RBC (0-5) /hpf Urine WBC (0-5) /hpf Ur Squamous Epith Cells (0-4) /hpf Urine Bacteria (None) /hpf Urine Mucus (None) /hpf 03/18/17 03/18/17 03/18/17 Range/Units 07:06 07:06 07:30 Hgb 10.8 L (11.4-16.0) gm/dL Hct 32.0 L (34.0-46.0) % MCV 78.8 L (80.0-100.0) fL Sodium 134 L (137-145) mmol/L Creatinine 0.48 L (0.52-1.04) mg/dL Glucose 149 H (74-99) mg/dL POC Glucose (mg/dL) 164 H (75-99) mg/dL Hemoglobin A1c (4.2-6.1) % Calcium 8.2 L (8.4-10.2) mg/dL AST 12 L (14-36) U/L Total Protein 5.5 L (6.3-8.2) g/dL Albumin 2.8 L (3.5-5.0) g/dL Urine Appearance (Clear) Urine Protein (Negative) Urine Glucose (UA) (Negative) Urine Blood (Negative) Ur Leukocyte Esterase (Negative) Urine RBC (0-5) /hpf Urine WBC (0-5) /hpf Ur Squamous Epith Cells (0-4) /hpf Urine Bacteria (None) /hpf Urine Mucus (None) /hpf 03/18/17 03/18/17 03/18/17 Range/Units 09:19 11:27 16:00 Hgb (11.4-16.0) gm/dL Hct (34.0-46.0) % MCV (80.0-100.0) fL Sodium (137-145) mmol/L Creatinine (0.52-1.04) mg/dL Glucose (74-99) mg/dL POC Glucose (mg/dL) 324 H 286 H (75-99) mg/dL Hemoglobin A1c (4.2-6.1) % Calcium (8.4-10.2) mg/dL AST (14-36) U/L Total Protein (6.3-8.2) g/dL Albumin (3.5-5.0) g/dL Urine Appearance Cloudy H (Clear) Urine Protein 1+ H (Negative) Urine Glucose (UA) 3+ H (Negative) Urine Blood Moderate H (Negative) Ur Leukocyte Esterase Small H (Negative) Urine RBC 89 H (0-5) /hpf Urine WBC 10 H (0-5) /hpf Ur Squamous Epith Cells 16 H (0-4) /hpf Urine Bacteria Occasional H (None) /hpf Urine Mucus Rare H (None) /hpf Assessment and Plan Plan: 1 left-sided flank pain, unknown etiology #2 hematuria suspicion for RCC vs a chronic infection #3 anxiety #4 diabetes mellitus type 2 #5 obesity #6 unintentional weight loss Plan Computed tomography scan is reviewed. Consideration for her chronic infection per urology however patient has had 2 courses of antibiotics with minimal improvement a trial of antibiotics will be attempted thereafter concern for consideration for nephrectomy was discussed with the patient Continue ongoing care may need a PICC line if
[2017-03-18 17:08] LABS: Glucose,Whole Blood 142 mg/dL (75-99)
[2017-03-18] MEDS: ACETAMINOPHEN TAB 325 MG TAB PO PRN (19:10)
[2017-03-18 20:04] LABS: Glucose,Whole Blood 264 mg/dL (75-99)
[2017-03-19] MEDS ORDERED: traMADol 50 MG TAB PO PRN (00:20)
[2017-03-19 07:37] LABS: Basophils % (A) 0 %; CH 27.2; CHCM 33.5; Eosinophils # (A) 0.2 k/uL (0-0.7); Eosinophils % (A) 2 %; HCT 33.6 % (34.0-46.0); HDW 2.93; HGB 10.8 gm/dL (11.4-16.0); Luc # (Auto) 0.24; Luc % (Auto) 2; Lymphocytes # (A) 2.5 k/uL (1.0-4.8); Lymphocytes % (A) 25 %; MCH 26.3 pg (25.0-35.0); MCHC 32.3 g/dL (31.0-37.0); MCV 81.5 fL (80.0-100.0); Mean Platelet Volume 7.6; Monocytes # (A) 0.5 k/uL (0-1.0); Monocytes % (A) 5 %; Neutrophils # (A) 6.5 k/uL (1.3-7.7); Neutrophils % (A) 66 %; RBC 4.12 m/uL (3.80-5.40); RDW 14.2 % (11.5-15.5); WBC 9.9 k/uL (3.8-10.6); WBC (Perox) 9.85
[2017-03-19 08:05] LABS: Glucose,Whole Blood 247 mg/dL (75-99)
[2017-03-19] MEDS: SODIUM CHLORIDE 0.9% 1,000 ML IV SCH (08:31)
[2017-03-19] MEDS: CITALOPRAM HYDROBROMIDE 20 MG TAB PO SCH (08:31)
[2017-03-19] MEDS: GABAPENTIN 300 MG CAP PO SCH ×2 (08:31→21:06)
[2017-03-19] MEDS: INSULIN LISPRO (humaLOG) 300 UNIT/3 ML VIAL SQ SCH ×7 (08:32→21:06)
[2017-03-19] MEDS: INSULIN GLARGINE 100 UNIT/ML 10 ML VIAL SQ SCH (08:42)
--- NOTE | 2017-03-19 09:35 | CONS ---
DATE OF SERVICE: 03/18/2017 REASON FOR CONSULTATION: Pyelonephritis. HISTORY OF PRESENT ILLNESS: The patient is a 42-year-old female with past medical history significant for left flank pain that has been going on and off for almost three months now with intermittent hematuria. Patient was previously evaluated for the same condition at [facility] on 02/05/2017 at which time the patient did have CT of the abdomen and pelvis with question of possible left renal mass for which the patient was transferred to [facility]. However, the patient signed out AMA. The patient subsequently followed with her PCP and she has been treated with two different courses of oral antibiotics in the form of Cipro and Bactrim DS lately. The patient states that whenever she takes those antibiotics her hematuria symptoms improve and she has more energy and feeling better. However the last course of antibiotics was finished about a week ago. The patient started having pain in her left flank area that was so severe that she was unable to tolerate it, almost 10 out of 10, sharp aching pain and no radiation. Some nausea, no vomiting. No high grade fever. For this reason, the patient was evaluated at the [facility] and subsequently transferred to the [facility] for further evaluation. The patient was evaluated by the ER physician and did have CT of the abdomen and pelvis which did show the left kidney mid and superior pole with diminished contrast, inflammatory changes and no underlying ( ) collecting system mass may be present 2 x 2 cm. Patient did not have any fever on presentation to the ER and the white count has been normal. UA was not significantly positive. The patient has been admitted to hospital and has been evaluated by Urology who has seen the patient with diagnosis of possible ( ) or pyelonephritis. ID was consulted for further recommendations regarding antibiotic therapy. REVIEW OF SYSTEMS: CONSTITUTIONAL: Positive for weakness and some chills. EYES: No complaint. ENT: No complaint. RESPIRATORY: No complaint. CARDIOVASCULAR: No complaint. GENITOURINARY: As per HPI. GASTROINTESTINAL: As per HPI. MUSCULOSKELETAL: No complaint. INTEGUMENTARY: no complaint. PSYCHOLOGICAL: No complaint. ENDOCRINE: No complaint. NEUROLOGICAL: No complaint. PAST MEDICAL HISTORY: Significant for diabetes mellitus, hyperlipidemia, osteoarthritis, neuropathy, ovarian cyst, irritable bowel syndrome. PAST SURGICAL HISTORY: , cholecystectomy, uterine ablation. SOCIAL HISTORY: No history of smoking, drinking or drug use. FAMILY HISTORY: Mother with history of CVA, TIA and father with dementia. ALLERGIES: MORPHINE. Medications include the patient is currently on Tylenol, Xanax, Pepcid, Neurontin, Lantus, Humalog, Narcan, Zofran. On examination: Blood pressure 129/66 with pulse 97. Temperature 98.6. She is 97 % on room air. General description is a middle aged female up in the bed in a no distress. No tachypnea or accessory muscle of respiration use. HEENT examination shows slight pallor. No scleral icterus. Oral mucous membrane is dry. NECK: Trachea is central. No thyromegaly. LUNGS: Unlabored breathing. Clear to auscultation anteriorly. HEART: S1, S2 regular rate and rhythm. ABDOMEN: Soft, no tenderness, no guarding, no rigidity. EXTREMITIES: No edema feet. SKIN: No rash or mass palpable. NEUROLOGICAL: Patient is awake, alert, oriented x3. Mood and affect normal. LABS: Hemoglobin is 11.4, white count 9.1, BUN 7, creatinine 0.48. Urine was not significantly positive, but showed moderate blood. No blood culture has been done. CT as mentioned above. DIAGNOSTIC IMPRESSION AND PLAN: The patient with hematuria for almost three months now, now with evidence of possible left renal mass with questions of malignancy versus a ( ) pyelonephritis. The patient does give a history of improvement of hematuria and overall feeling well when she is on antibiotics and is mostly likely chronic. ( ) pyelonephritis not entirely excluded, which is usually associated with renal stones, however, there are no stones on the CT and is usually associated with pyuria and some fever, which we did not see in her case. PLAN: 1. We will repeat her urine UA and cultures and request for blood cultures. 2. Will try to see if we can obtain her CT scan from the [facility] that was done in January and compare it with this CT done at this hospital and see if there is any progression of the changes. 3. The patient will be empirically started on Rocephin 2 grams daily while waiting for the workup to finalize. 4. Will follow up on the clinical condition and cultures to further adjust medications if needed. Thank you for this consultation. I will follow this patient along with you. PEYTON
--- NOTE | 2017-03-19 11:15 | P.PN ---
Progress Note - Text Ms. Boyer's condition is essentially unchanged. She continues to report left flank pain. She is afebrile. If she fails to improve with antibiotic therapy, as expected, she will likely require a nephrectomy.
[2017-03-19 11:49] LABS: Glucose,Whole Blood 222 mg/dL (75-99)
[2017-03-19] MEDS: cefTRIAXone 2,000 MG in SODIUM CHLORIDE 0.9% 100 ML IVPB SCH (12:29)
[2017-03-19 18:07] LABS: Glucose,Whole Blood 208 mg/dL (75-99)
--- NOTE | 2017-03-19 19:33 | P.PN ---
Subjective 42-year-old female comes in the hospital with complaints of left-sided abdominal pain this is ongoing for about 6 weeks. Patient states that her pain is unbearable hence came to the hospital for further evaluation. Patient was admitted to the hospital on 02/15/2017 with the hematuria at that time patient apparently had a computed tomography scan of the abdomen that was done at [facility] was noted to have multiple abnormalities including hepatomegaly cystic mass in the left ovary according to the previous documentation Patient was also noted to have a suspicious mass in the left kidney as well Patient today states that she has intermittent blood in her urine denies having any fevers chills nausea. Patient states that the her last menstrual cycle was one month ago. Patient apparently has seen a urologist was supposed to follow up in the future however states that she does not know what the plan is at this time Rates the pain as a 7 out of 10 nonradiating , no alleviating factors are described. 03/18/2017 Patient continues to have flank pain no fevers chills nausea vomiting or diarrhea. 03/19/17 continues to have left sided flank pain pt was started on pain meds overnight no cp, n/v, headaches, diarrhea, urinary urgency or frequency Physical exam Gen. appearance oriented 3 in no distress Neck is supple no JVD Lungs good air entry clear to auscultation no rhonchi or wheezing Heart S1-S2 heard regular rate and rhythm no murmurs appreciated Abdomen of sided flank pain is reproducible no mass appreciated Neurologically cranial nerves II-12 grossly intact no focal motor or sensory deficits noted Skin no abnormalities appreciated Objective - Vital Signs Vital signs: Vital Signs Temp 98.7 F 03/19/17 15:00 Pulse 88 03/19/17 15:08 Resp 18 03/19/17 15:08 BP 132/77 03/19/17 15:00 Pulse Ox 96 03/19/17 15:00 Intake & Output 03/19/17 03/19/17 03/20/17 06:59 18:59 06:59 Intake Total 320 240 Balance 320 240 Intake: Intake, IV Titration 320 Amount Sodium Chloride 0.9% 1, 320 000 ml @ 20 mls/hr IV . Q24H [facility] Rx#:[id number] Oral 240 Other: Voiding Method Toilet Toilet # Voids 2 4 - Labs CBC & Chem 7: 03/19/17 07:07 03/18/17 07:06 Labs: Abnormal Lab Results - Last 24 Hours (Table) 03/18/17 03/19/17 03/19/17 Range/Units 20:01 07:07 07:07 Hgb 10.8 L (11.4-16.0) gm/dL Hct 33.6 L (34.0-46.0) % POC Glucose (mg/dL) 264 H (75-99) mg/dL C-Reactive Protein 59.8 H (<10.0) mg/L 03/19/17 03/19/17 03/19/17 Range/Units 07:21 11:23 18:06 Hgb (11.4-16.0) gm/dL Hct (34.0-46.0) % POC Glucose (mg/dL) 247 H 222 H 208 H (75-99) mg/dL C-Reactive Protein (<10.0) mg/L Microbiology - Last 24 Hours (Table) 03/18/17 15:08 Blood Culture - Preliminary Blood No Growth after 24 hours 03/18/17 14:26 Blood Culture - Preliminary Blood No Growth after 24 hours 03/19/17 08:10 Urine Culture - Preliminary Urine,Voided 03/18/17 16:00 Urine Culture - Preliminary Urine,Voided Assessment and Plan Plan: 1 left-sided flank pain, unknown etiology #2 hematuria suspicion for RCC vs a chronic infection #3 anxiety #4 diabetes mellitus type 2 #5 obesity #6 unintentional weight loss Plan Computed tomography scan is reviewed. Consideration for her chronic infection per urology however patient has had 2 courses of antibiotics with minimal improvement a trial of antibiotics will be attempted thereafter concern for consideration for nephrectomy if pt doesnot improved with abx defer to route of abx to ID Continue ongoing care
[2017-03-19 20:05] LABS: Glucose,Whole Blood 218 mg/dL (75-99)
[2017-03-20] MEDS: ACETAMINOPHEN TAB 325 MG TAB PO PRN ×2 (00:50→19:35)
[2017-03-20 07:16] LABS: Glucose,Whole Blood 134 mg/dL (75-99)
[2017-03-20] MEDS: GABAPENTIN 300 MG CAP PO SCH ×2 (07:16→20:33)
[2017-03-20] MEDS: INSULIN GLARGINE 100 UNIT/ML 10 ML VIAL SQ SCH (07:16)
[2017-03-20] MEDS: CITALOPRAM HYDROBROMIDE 20 MG TAB PO SCH (07:16)
[2017-03-20] MEDS: INSULIN LISPRO (humaLOG) 300 UNIT/3 ML VIAL SQ SCH ×7 (07:17→20:33)
[2017-03-20] MEDS: SODIUM CHLORIDE 0.9% 1,000 ML IV SCH ×2 (07:19→17:22)
[2017-03-20] MEDS: ALPRAZolam 0.25 MG TAB PO PRN ×2 (08:04→17:22)
[2017-03-20 08:46] VITALS: BMI 25.7
[2017-03-20] MEDS: cefTRIAXone 2,000 MG in SODIUM CHLORIDE 0.9% 100 ML IVPB SCH (11:28)
[2017-03-20 11:42] LABS: Glucose,Whole Blood 208 mg/dL (75-99)
--- NOTE | 2017-03-20 15:58 | P.PN ---
Subjective Progress note being dictated for Dr. Almanza Interval history:42-year-old female comes in the hospital with complaints of left-sided abdominal pain this is ongoing for about 6 weeks. Patient states that her pain is unbearable hence came to the hospital for further evaluation. Patient was admitted to the hospital on 02/15/2017 with the hematuria at that time patient apparently had a computed tomography scan of the abdomen that was done at [facility] was noted to have multiple abnormalities including hepatomegaly cystic mass in the left ovary according to the previous documentation Patient was also noted to have a suspicious mass in the left kidney as well Patient today states that she has intermittent blood in her urine denies having any fevers chills nausea. Patient states that the her last menstrual cycle was one month ago. Patient apparently has seen a urologist was supposed to follow up in the future however states that she does not know what the plan is at this time Rates the pain as a 7 out of 10 nonradiating , no alleviating factors are described. 03/18/2017 Patient continues to have flank pain no fevers chills nausea vomiting or diarrhea. 03/19/17 continues to have left sided flank pain pt was started on pain meds overnight no cp, n/v, headaches, diarrhea, urinary urgency or frequency 03/20/17 infectious disease comparing radiology studies between [place] and [facility] with further recommendations pending. Complains of mild bilateral lower quadrant cramping, improved left-sided flank pain. Afebrile. Denies chest pain, palpitations or increased shortness of breath. Denies any focal deficits. Objective - Vital Signs Vital signs: Vital Signs Temp 98 F 03/20/17 07:00 Pulse 76 03/20/17 08:00 Resp 16 03/20/17 08:00 BP 118/78 03/20/17 07:00 Pulse Ox 96 03/20/17 07:00 Intake & Output 03/19/17 03/20/17 03/20/17 18:59 06:59 18:59 Intake Total 240 180 490 Balance 240 180 490 Weight 72.121 kg Intake: Intake, IV Titration 180 250 Amount Sodium Chloride 0.9% 1, 180 150 000 ml @ 20 mls/hr IV . Q24H [facility] Rx#:[id number] cefTRIAXone 2,000 mg In 100 Sodium Chloride 0.9% 100 ml @ 100 mls/hr IVPB DAILY@1200 [facility] Rx#: [id number] Oral 240 240 Other: Voiding Method Toilet Toilet Toilet # Voids 4 1 4 - Exam PHYSICAL EXAM: VITAL SIGNS: [as above] GENERAL: [ambulating, no acute distress] HEENT: [Pupils equal conjunctiva normal.] NECK: [Supple, no JVD] RESPIRATORY EFFORT:[normal] LUNGS: [clear to auscultation, no rhonchi, wheezes, or crackles] CARDIOVASCULAR[regular s1,s2, no murmurs, rubs, or gallops, no edema] GI: [Abdomen soft, nontender,reproducible left sided flank pain, no mass appreciated, positive bowel sounds.] PSYCH: [Alert and oriented -3, mood and affect normal.] SKIN: [no abnormalities appreciated.] NEURO: [no focal deficits, moves all four extremities, strength and sensation grossly intact] - Labs CBC & Chem 7: 03/19/17 07:07 03/18/17 07:06 Labs: Abnormal Lab Results - Last 24 Hours (Table) 03/19/17 03/19/17 03/20/17 Range/Units 18:06 20:04 07:07 POC Glucose (mg/dL) 208 H 218 H 134 H (75-99) mg/dL 03/20/17 Range/Units 11:41 POC Glucose (mg/dL) 208 H (75-99) mg/dL Microbiology - Last 24 Hours (Table) 03/18/17 16:00 Urine Culture - Final Urine,Voided 03/18/17 15:08 Blood Culture - Preliminary Blood No Growth after 24 hours 03/18/17 14:26 Blood Culture - Preliminary Blood No Growth after 24 hours 03/19/17 08:10 Urine Culture - Preliminary Urine,Voided Assessment and Plan Plan: 1 left-sided flank pain, unknown etiology #2 hematuria suspicion for RCC vs a chronic infection #3 anxiety #4 diabetes mellitus type 2 #5 obesity #6 unintentional weight loss Plan: Continue on current medication regime, monitoring, and symptomatic treatment. Review of Computed tomography scan in progress.Further recommnedations per ID pending. Maintain supportive care. The impression and plan of care has been dictated as directed. : I performed a H&P examination of this patient and discussed the same with the dictator. I agree with the dictator's note. Any additional findings/opinions/ etc. will be noted.
[2017-03-20 16:49] LABS: Glucose,Whole Blood 231 mg/dL (75-99)
[2017-03-20 20:23] LABS: Glucose,Whole Blood 288 mg/dL (75-99)
[2017-03-21] MEDS: INSULIN GLARGINE 100 UNIT/ML 10 ML VIAL SQ SCH (07:23)
[2017-03-21] MEDS: CITALOPRAM HYDROBROMIDE 20 MG TAB PO SCH (07:24)
[2017-03-21] MEDS: GABAPENTIN 300 MG CAP PO SCH ×2 (07:24→20:44)
[2017-03-21] MEDS: ALPRAZolam 0.25 MG TAB PO PRN (07:28)
[2017-03-21 07:35] LABS: Glucose,Whole Blood 151 mg/dL (75-99)
[2017-03-21] MEDS: INSULIN LISPRO (humaLOG) 300 UNIT/3 ML VIAL SQ SCH ×7 (08:32→20:44)
[2017-03-21] MEDS: cefTRIAXone 2,000 MG in SODIUM CHLORIDE 0.9% 100 ML IVPB SCH (11:26)
[2017-03-21 11:30] LABS: Glucose,Whole Blood 224 mg/dL (75-99)
[2017-03-21 17:16] LABS: Glucose,Whole Blood 167 mg/dL (75-99)
--- NOTE | 2017-03-21 17:45 | PN ---
DATE OF SERVICE: 03/20/2017 REASON FOR FOLLOWUP: Left pyelonephritis. INTERVAL HISTORY: The patient is afebrile. Pain to the left flank is currently slightly improved. Denies significant hematuria. Denies significant chest pain, shortness of breath or cough, and no abdominal pain or any diarrhea. On examination, blood pressure is 120/77 with a pulse of 86, temperature 98.1. She is 97% on room air. General description is a middle-aged female lying in bed in no distress. RESPIRATORY SYSTEM: Unlabored breathing. Clear to auscultation anteriorly. HEART: S1, S2. Regular rate and rhythm. ABDOMEN: Soft. No tenderness. LABS: Hemoglobin 10.3, white count 9.9. Cultures so far negative. DIAGNOSTIC IMPRESSION AND PLAN: Patient with left pyelonephritis, chronic ( ) CTs were reviewed with the radiologist. With extensive involvement of the upper and mid pole of the left kidney, radiologist considers it more of an inflammatory condition ( ) patient was asked to try antibiotic first; then if it fails, she will go for nephrectomy. This will be discussed further with Nephrology, as the patient's kidneys are extensively involved and there is the risk of antibiotic failure. She is currently responding to Rocephin. That will be continued. I will reevaluate the patient tomorrow. PEYTON
[2017-03-21 20:45] LABS: Glucose,Whole Blood 232 mg/dL (75-99)
--- NOTE | 2017-03-21 22:28 | P.PN ---
Subjective Progress note being dictated for Dr. Almanza Interval history:42-year-old female comes in the hospital with complaints of left-sided abdominal pain this is ongoing for about 6 weeks. Patient states that her pain is unbearable hence came to the hospital for further evaluation. Patient was admitted to the hospital on 02/15/2017 with the hematuria at that time patient apparently had a computed tomography scan of the abdomen that was done at [facility] was noted to have multiple abnormalities including hepatomegaly cystic mass in the left ovary according to the previous documentation ist Patient was also noted to have a suspicious mass in the left kidney as well Patient today states that she has intermittent blood in her urine denies having any fevers chills nausea. Patient states that the her last menstrual cycle was one month ago. Patient apparently has seen a urologist was supposed to follow up in the future however states that she does not know what the plan is at this time Rates the pain as a 7 out of 10 nonradiating , no alleviating factors are described. 03/18/2017 Patient continues to have flank pain no fevers chills nausea vomiting or diarrhea. . 03/19/17 continues to have left sided flank pain pt was started on pain meds overnight no cp, n/v, headaches, diarrhea, urinary urgency or frequency and ID 03/20/17 infectious disease comparing radiology studies between [facility] and [facility] with further recommendations pending. Complains of mild bilateral lower quadrant cramping, improved left-sided flank pain. Afebrile. Denies chest pain, palpitations or increased shortness of breath. Denies any focal deficits. 03/21/17 Radiology studies further evaluated by radiologist and ID-Extensive involvement; refer to Dr. Oliveira's note regarding interpretation. Options of antibitioic tx, nephrectomy,possible partial nephrectomy discussed. Further recommendations from urology pending. Maintained on Rocephin.mild hematuria reported. left flank pain improving. Ambulating in hallway.Afebrile. Objective - Vital Signs Vital signs: Vital Signs Temp 98.1 F 03/21/17 15:00 Pulse 78 03/21/17 15:17 Resp 18 03/21/17 15:17 BP 131/88 03/21/17 15:00 Pulse Ox 97 03/21/17 15:00 Intake & Output 03/21/17 03/21/17 03/22/17 06:59 18:59 06:59 Intake Total 310 340 Balance 310 340 Weight 72.121 kg Intake: Intake, IV Titration 70 100 Amount Sodium Chloride 0.9% 1, 70 000 ml @ 20 mls/hr IV . Q24H BEBE Rx#:[id number] cefTRIAXone 2,000 mg In 100 Sodium Chloride 0.9% 100 ml @ 100 mls/hr IVPB DAILY@1200 [facility]BE Rx#: [id number] Oral 240 240 Other: Voiding Method Toilet Toilet # Voids 1 3 - Exam PHYSICAL EXAM: VITAL SIGNS: [as above] GENERAL: [Sitting up at bedside, no acute distress] HEENT: [Pupils equal conjunctiva normal.oral mucosa moist] NECK: [Supple, no JVD] RESPIRATORY EFFORT:[normal] LUNGS: [clear to auscultation, no rhonchi, wheezes, or crackles] CARDIOVASCULAR[regular s1,s2, no murmurs, rubs, or gallops, no edema] GI: [Abdomen soft, nontender,reproducible left sided flank pain, no mass appreciated, positive bowel sounds.] PSYCH: [Alert and oriented -3, mood and affect normal.] SKIN: [no abnormalities appreciated.] NEURO: [no focal deficits, moves all four extremities, strength and sensation grossly intact] Microbiology 03/18/17 15:08 Blood Blood Culture - Preliminary No Growth after 72 hours 03/18/17 14:26 Blood Blood Culture - Preliminary No Growth after 72 hours 03/19/17 08:10 Urine,Voided Urine Culture - Final 03/18/17 16:00 Urine,Voided Urine Culture - Final - Labs CBC & Chem 7: 03/19/17 07:07 03/18/17 07:06 Labs: Abnormal Lab Results - Last 24 Hours (Table) 03/21/17 03/21/17 03/21/17 Range/Units 07:21 11:23 17:10 POC Glucose (mg/dL) 151 H 224 H 167 H (75-99) mg/dL 03/21/17 Range/Units 20:42 POC Glucose (mg/dL) 232 H (75-99) mg/dL Microbiology - Last 24 Hours (Table) 03/18/17 15:08 Blood Culture - Preliminary Blood No Growth after 72 hours 03/18/17 14:26 Blood Culture - Preliminary Blood No Growth after 72 hours Assessment and Plan Plan: 1 left-sided flank pain, 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 Further recommnedations per nephrology and urology pending. Maintain supportive care. The impression and plan of care has been dictated as directed. : I performed a H&P examination of this patient and discussed the same with the dictator. I agree with the dictator's note. Any additional findings/opinions/ etc. will be noted.
[2017-03-22] MEDS: ALPRAZolam 0.25 MG TAB PO PRN ×2 (00:36→10:37)
[2017-03-22 07:34] LABS: Glucose,Whole Blood 131 mg/dL (75-99)
[2017-03-22 07:49] VITALS: RESP 18
[2017-03-22 08:13] LABS: Basophils % (A) 0 %; CH 27.6; CHCM 34.2; Eosinophils # (A) 0.3 k/uL (0-0.7); Eosinophils % (A) 2 %; HCT 35.2 % (34.0-46.0); HDW 3.11; HGB 11.5 gm/dL (11.4-16.0); Luc # (Auto) 0.23; Luc % (Auto) 2; Lymphocytes # (A) 2.7 k/uL (1.0-4.8); Lymphocytes % (A) 24 %; MCH 26.5 pg (25.0-35.0); MCHC 32.7 g/dL (31.0-37.0); MCV 80.9 fL (80.0-100.0); Mean Platelet Volume 7.4; Monocytes # (A) 0.4 k/uL (0-1.0); Monocytes % (A) 4 %; Neutrophils # (A) 7.8 k/uL (1.3-7.7); Neutrophils % (A) 68 %; RBC 4.36 m/uL (3.80-5.40); RDW 14.8 % (11.5-15.5); WBC 11.4 k/uL (3.8-10.6); WBC (Perox) 11.56
[2017-03-22 08:28] LABS: Anion Gap 10 mmol/L; Blood Urea Nitrogen 11 mg/dL (7-17); Calcium 9.3 mg/dL (8.4-10.2); Carbon Dioxide 24 mmol/L (22-30); Chloride 102 mmol/L (98-107); Glucose 125 mg/dL (74-99); Non-African American GFR(MDRD) >60 (>60 ml/min/1.73 sqM); Potassium 4.6 mmol/L (3.5-5.1); Sodium 136 mmol/L (137-145)
--- NOTE | 2017-03-22 09:02 | PN ---
Mrs. Boyer is seen in consultation for a focal lesion in her left kidney. 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 She has been treated with antibiotics several times up in the [place]. She ended up in the hospital with blood in the urine and inflammation again. Her symptoms have subsided somewhat on antibiotics. On Ct scan with contrast, there is an inflammatory mass in the upper pole with positive lymphadenopathy periaortic. The question is is whether this is an inflammatory or malignant process. 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 It does not have the typical appearance that you see with renal cell carcinoma. However, that risk exists. I explained to the patient that if this is a renal cell carcinoma, it is quite progressed. She would have had positive lymph nodes and therefore a Stage III disease. If it is xanthogranulomatous pyelonephritis, the question is whether we can cure this with antibiotics and preserve her kidney. I will consult with my colleagues and make a final action plan for this patient. I suspect that she is going to end up needing an nephrectomy. However, given that she is diabetic, it is something that we would want to make sure that would be the best treatment or the only treatment for her. The patient understands and concurs. We will make a final treatment plan in the next 24 to 48 hours. PEYTON
[2017-03-22] MEDS: GABAPENTIN 300 MG CAP PO SCH (09:03)
[2017-03-22] MEDS: CITALOPRAM HYDROBROMIDE 20 MG TAB PO SCH (09:04)
[2017-03-22] MEDS: INSULIN LISPRO (humaLOG) 300 UNIT/3 ML VIAL SQ SCH ×4 (09:04→13:12)
[2017-03-22] MEDS: SODIUM CHLORIDE 0.9% 1,000 ML IV SCH (09:05)
[2017-03-22] MEDS: INSULIN GLARGINE 100 UNIT/ML 10 ML VIAL SQ SCH (09:10)
[2017-03-22 11:13] LABS: Glucose,Whole Blood 217 mg/dL (75-99)
--- NOTE | 2017-03-22 11:49 | P.PN ---
Subjective The patient is in the hospital with a segmental pyelonephritis, xanthogranulomatous pyelonephritis. She has been seen by Dr. Neff of infectious disease. He is to give her outpatient IV antibiotics for 4 weeks and then re-CAT scan the patient. If the inflammatory mass is decreased we will continue to treat her conservatively. If she symptomatically worsens or the mass does not improve on computed tomography scan then a nephrectomy will be required.This has been discussed with the patient and she concurs. Objective - Vital Signs Vital signs: Vital Signs Temp 97.6 F 03/22/17 07:00 Pulse 89 03/22/17 08:00 Resp 18 03/22/17 08:00 BP 115/72 03/22/17 07:00 Pulse Ox 96 03/22/17 07:00 Intake & Output 03/21/17 03/22/17 03/22/17 18:59 06:59 18:59 Intake Total 340 230 Balance 340 230 Weight 72.121 kg Intake: Intake, IV Titration 100 230 Amount Sodium Chloride 0.9% 1, 230 000 ml @ 20 mls/hr IV . Q24H [facility] Rx#:[id number] cefTRIAXone 2,000 mg In 100 Sodium Chloride 0.9% 100 ml @ 100 mls/hr IVPB DAILY@1200 [facility] Rx#: [id number] Oral 240 Other: Voiding Method Toilet Toilet Toilet # Voids 3 1 - Labs CBC & Chem 7: 03/22/17 07:38 03/22/17 07:38 Labs: Abnormal Lab Results - Last 24 Hours (Table) 03/21/17 03/21/17 03/22/17 Range/Units 17:10 20:42 07:27 WBC (3.8-10.6) k/uL Neutrophils # (1.3-7.7) k/uL Sodium (137-145) mmol/L Creatinine (0.52-1.04) mg/dL Glucose (74-99) mg/dL POC Glucose (mg/dL) 167 H 232 H 131 H (75-99) mg/dL 03/22/17 03/22/17 03/22/17 Range/Units 07:38 07:38 11:12 WBC 11.4 H (3.8-10.6) k/uL Neutrophils # 7.8 H (1.3-7.7) k/uL Sodium 136 L (137-145) mmol/L Creatinine 0.50 L (0.52-1.04) mg/dL Glucose 125 H (74-99) mg/dL POC Glucose (mg/dL) 217 H (75-99) mg/dL Microbiology - Last 24 Hours (Table) 03/18/17 15:08 Blood Culture - Preliminary Blood No Growth after 72 hours 03/18/17 14:26 Blood Culture - Preliminary Blood No Growth after 72 hours
[2017-03-22] MEDS ORDERED: LIDOCAINE 2% INJ 20 MG/ML (20 ML MDV) ONE (12:43)
[2017-03-22] MEDS ORDERED: LIDOCAINE 2% INJ 20 MG/ML SQ ONE (12:46)
[2017-03-22] MEDS: cefTRIAXone 2,000 MG in SODIUM CHLORIDE 0.9% 100 ML IVPB SCH (13:07)
--- NOTE | 2017-03-22 15:25 | IR ---
PICC LINE PLACEMENT: HISTORY: Infection requiring long-term antibiotic therapy PROCEDURE: Ultrasound and fluoroscopic guidance of PICC line placement. COMPLICATIONS: None ANESTHESIA: 1. 1% Lidocaine locally. FINDINGS/TECHNIQUE: The procedure was explained to the patient. The risks, complications, benefits and alternatives were discussed and any questions were answered. Informed consent was obtained. The patient was placed supine on the fluoroscopic table and prepped and draped in the usual sterile [facility] ion. Utilizing a 21 gauge needle and sonographic and fluoroscopic guidance, access in the vein was achieved and there is placement of a 0.018 guidewire. The vein is patent. A 4-F sheath was placed o marjorie the guidewire. The guidewire and dilator were removed and a 4-F. PICC line was placed through th e sheath with the tip at the level of the SVC. The sheath was removed, the catheter was flushed and sutured into position. The patient was stable throughout the procedure and remained stable upon disc harge from the Department of Radiology. The vein puncture was patent under ultrasound. A garcia scale image was obtained to document patency of the vein punctured. All elements of the maximal barrier technique were utilized. One image provided. FLUOROSCOPY TIME: 0.3 minutes IMPRESSION: Successful PICC line placement under ultrasound and fluoroscopic guidance.
[2017-03-22 15:42] VITALS: BP 132/81; PULSE 97; TEMP 97.8
--- NOTE | 2017-03-22 16:04 | P.DS ---
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 Patient was also noted to have a suspicious mass in the left kidney as well. Urine pathology reporting predominant superficial squamous cells with no cytologically malignant cells identified. Evaluated by urology, infectious disease.maintained on Rocephin. Radiology studies further evaluated by radiologist and ID- extensive involvement left kidney, discussed with urology .Together consults recommending outpatient IV antibiotics for 4 weeks, repeat CT following completion of antibiotics. Potential nephrectomy if symptoms worsen or if no improvement. PICC line placed. Significant clinical improvement. Patient has been cleared by all consults for discharge. Patient is being discharged home in a stable condition with guarded prognosis. Microbiology 03/18/17 15:08 Blood Blood Culture - Preliminary No Growth after 72 hours 03/18/17 14:26 Blood Blood Culture - Preliminary No Growth after 72 hours 03/19/17 08:10 Urine,Voided Urine Culture - Final 03/18/17 16:00 Urine,Voided Urine Culture - Final Vital Signs - 24 hr 03/21/17 03/22/17 03/22/17 23:00 07:00 08:00 Temperature 98.1 F 97.6 F Pulse Rate [ 78 89 89 Pulse Oximetery ] Respiratory 16 18 18 Rate Blood Pressure 156/89 115/72 [Left Arm] O2 Sat by Pulse 100 96 Oximetry 03/22/17 15:00 Temperature 97.8 F Pulse Rate [ 97 Pulse Oximetery ] Respiratory 18 Rate Blood Pressure 132/81 [Left Arm] O2 Sat by Pulse 97 Oximetry PHYSICAL EXAM: VITAL SIGNS: [as above] GENERAL: [Sitting up at bedside, no acute distress] HEENT: [Pupils equal conjunctiva normal.oral mucosa moist] NECK: [Supple, no JVD] RESPIRATORY EFFORT:[normal] LUNGS: [clear to auscultation, no rhonchi, wheezes, or crackles] CARDIOVASCULAR[regular s1,s2, no murmurs, rubs, or gallops, no edema] GI: [Abdomen soft, nontender,reproducible left sided flank pain, no mass appreciated, positive bowel sounds.] PSYCH: [Alert and oriented -3, mood and affect normal.] SKIN: [no abnormalities appreciated.] NEURO: [no focal deficits, moves all four extremities, strength and sensation grossly intact] The impression and plan of care has been dictated as directed as a scribe. : I performed a H&P examination of this patient and discussed the same with the dictator. I agree with the dictator's note. Any additional findings/opinions/ etc. will be noted. Patient Condition at Discharge: Stable Plan - Discharge Summary New Discharge Prescriptions: New cefTRIAXone [Rocephin] 2,000 mg IVPB Q24HR #30 vial traMADol HCl [Ultram] 50 mg PO BID PRN #20 tab PRN Reason: Pain/Discomfort Continue Gabapentin [Neurontin] 600 mg PO DAILY Citalopram Hydrobromide [CeleXA] 40 mg PO DAILY Ketotifen Fumarate [Alaway] 1 drop BOTH EYES DAILY PRN PRN Reason: Itching glipiZIDE [Glucotrol] 5 mg PO DAILY Discontinued Ibuprofen [Motrin] 800 mg PO BID Discharge Medication List Citalopram Hydrobromide [CeleXA] 40 mg PO DAILY 02/05/17 [History] Gabapentin [Neurontin] 600 mg PO DAILY 02/05/17 [History] Ketotifen Fumarate [Alaway] 1 drop BOTH EYES DAILY PRN 02/05/17 [History] glipiZIDE [Glucotrol] 5 mg PO DAILY 03/17/17 [History] cefTRIAXone [Rocephin] 2,000 mg IVPB Q24HR #30 vial 03/22/17 [Rx] traMADol HCl [Ultram] 50 mg PO BID PRN #20 tab 03/22/17 [Rx] Follow up Appointment(s)/Referral(s): Nonstaff,Physician [Primary Care Provider] - 1-2 days Celena Neff MD [STAFF PHYSICIAN] - 04/06/17 10:30 am Ambulatory/Diagnostic Orders: Complete Blood Count w/diff [LAB.AMB] Time Frame: 3 Days, Location: Determined By Patient Activity/Diet/Wound Care/Special Instructions: call [facility] to make appt for your infusion to start tomorrow - 1- [phone] Diet: Consistent carb Accu-Cheks before meals and at bedtime, maintain log intake to follow-up visit with PCP for further recommendations Activity: Limited until follow up
--- NOTE | 2017-03-22 20:59 | PN ---
DATE OF SERVICE: 03/21/17 REASON FOR FOLLOW UP: Possible left sided pyelonephritis. INTERVAL HISTORY: The patient is afebrile. The pain to the left leg seems slightly improved. The patient denies significant chest pain, shortness of breath, cough. No abdominal pain or any diarrhea. On examination, blood pressure 131/88 with a pulse of 79. Temperature 98.1. She is 97% on room air. General description is a middle age female lying in the bed in no distress. Respiratory system unlabored breathing. Clear to auscultation anteriorly. Heart S1, S2 regular rate and rhythm. Abdomen soft. No tenderness. LABS: Cultures remain to be negative so far. DIAGNOSTIC IMPRESSION AND PLAN: The patient admitted to the hospital with left flank pain with question of pyelonephritis with significant inflammatory changes on the CT. Options have been discussed entirely with the patient as well as the urologist including trial of antibiotics for a couple of weeks and repeating a CT and if no improvement, go for nephrectomy or nephrectomy on this admission. The patient seems to be favoring going with a trial of IV antibiotic therapy for which a PICC line will be placed. ( ) Rocephin 2 gm daily with close monitoring of kidney function and clinical condition in the outpatient setting. MTDD
--- NOTE | 2017-03-23 08:16 | PN ---
DATE OF SERVICE: 03/22/17 REASON FOR FOLLOW UP: Left sided pyelonephritis. INTERVAL HISTORY: The patient is afebrile. She is feeling better. Pain to the left leg is currently improved since she has been in the hospital. Overall hematuria has improved. The patient denies significant chest pain, shortness of breath or cough. On examination, blood pressure 115/72 with a pulse of 89. Temperature 97.6. She is 96% on room air. General description is a middle aged female up in the bed in no distress. Respiratory system unlabored breathing. Clear to auscultation anteriorly. Heart S1, S2 regular rate and rhythm. Abdomen soft. No tenderness. LABS: Hemoglobin 11.5 to 11.4, BUN 11, creatinine 0.50. DIAGNOSTIC IMPRESSION AND PLAN: The patient with left sided pyelonephritis, chronic with improvement on the Rocephin. Per discussion with urology, plan for at least four weeks of antibiotics and repeat ( ) at that time. The patient herself has elected to go directly for the nephrectomy. We will continue to monitor closely in the outpatient setting. Continue supportive care. PEYTON
== END 2017-03-22 16:56 | disposition home or self-care (01) | DRG 690 ==
LOC: EC 04:13 → 5MS5E 05:27
PROVIDERS: ADMIT Hospitalist; ATTEND Hospitalist
PROC: 02HV33Z Insertion of Infusion Device into Superior Vena Cava, Percutaneous Approach (ICD-10-PCS; principal; 2017-03-22 12:30)
PROC: B548ZZA Ultrasonography of Superior Vena Cava, Guidance (ICD-10-PCS; 2017-03-22 12:30)
PROC: B518ZZA Fluoroscopy of Superior Vena Cava, Guidance (ICD-10-PCS; 2017-03-22 12:30)
DX: N11.9 Chronic tubulo-interstitial nephritis, unspecified (principal); E11.40 Type 2 diabetes mellitus with diabetic neuropathy, unspecified; E11.65 Type 2 diabetes mellitus with hyperglycemia; E66.9 Obesity, unspecified; F41.9 Anxiety disorder, unspecified; E78.5 Hyperlipidemia, unspecified; J45.909 Unspecified asthma, uncomplicated; R31.0 Gross hematuria; G89.29 Other chronic pain; M19.91 Primary osteoarthritis, unspecified site; L30.9 Dermatitis, unspecified; G43.909 Migraine, unspecified, not intractable, without status migrainosus; K58.9 Irritable bowel syndrome, unspecified; F90.9 Attention-deficit hyperactivity disorder, unspecified type; F32.9 Major depressive disorder, single episode, unspecified; Z79.84 Long term (current) use of oral hypoglycemic drugs; Z79.899 Other long term (current) drug therapy; Z90.49 Acquired absence of other specified parts of digestive tract; Z88.5 Allergy status to narcotic agent
CPT/HCPCS: 36569; 74177; 76937; 77001; 80048; 80053; 81001; 83036; 85025; 86140; 87040; 87086; 88108; 96360; 99285

== ENCOUNTER → 2017-04-18 | Outpatient (CLI) | payer OTHER ==
[2017-04-18 13:04] LABS: Appearance,Urine Cloudy (Clear); Bacteria,Urine Rare /hpf; Bilirubin,Urine Negative (Negative); Glucose,Urine (UA) 3+ (Negative); Leukocyte Esterase,Urine Small (Negative); Mucus,Urine Rare /hpf; Nitrite,Urine Negative (Negative); Particle Count 8837; Protein,Urine 1+ (Negative); RBC,Urine >182 /hpf (0-5); Specific Gravity,Urine 1.015 (1.001-1.035); Squamous Epithelial Cell,Urine 5 /hpf (0-4); UA Billing (MACRO vs. MICRO) MICRO; Urobilinogen,Urine <2.0 mg/dL (<2.0); WBC,Urine 11 /hpf (0-5)
[2017-04-18 13:10] LABS: Ketones,Urine 2+ (Negative)
== END | disposition home or self-care (01) ==
LOC: LABWHC1 10:42 → LABPAT 10:42
PROVIDERS: ATTEND Urology
DX: Z01.812 Encounter for preprocedural laboratory examination (principal); D41.02 Neoplasm of uncertain behavior of left kidney; E11.9 Type 2 diabetes mellitus without complications; N39.0 Urinary tract infection, site not specified; R53.83 Other fatigue; R05 Cough; R35.0 Frequency of micturition
CPT/HCPCS: 81001; 87086; 93005

== ENCOUNTER → 2017-04-18 | Outpatient (CLI) | payer OTHER ==
[2017-04-18 10:33] LABS: Basophils # (A) 0.1 k/uL (0-0.2); Basophils % (A) 0 %; CH 25.1; Eosinophils # (A) 0.1 k/uL (0-0.7); Eosinophils % (A) 1 %; HCT 37.4 % (34.0-46.0); HDW 3.62; HGB 12.7 gm/dL (11.4-16.0); Hypochromasia Slight; Luc % (Auto) 2; Lymphocytes # (A) 1.9 k/uL (1.0-4.8); Lymphocytes % (A) 15 %; MCH 25.9 pg (25.0-35.0); MCHC 33.9 g/dL (31.0-37.0); MCV 76.5 fL (80.0-100.0); Mean Platelet Volume 7.6; Monocytes # (A) 0.7 k/uL (0-1.0); Monocytes % (A) 6 %; Neutrophils # (A) 9.5 k/uL (1.3-7.7); Neutrophils % (A) 76 %; Poikilocytosis Slight; RBC 4.89 m/uL (3.80-5.40); RDW 13.9 % (11.5-15.5); WBC 12.5 k/uL (3.8-10.6); WBC (Perox) 12.89
[2017-04-18 10:36] LABS: ALT 23 U/L (9-52); AST 18 U/L (14-36); Alkaline Phosphatase 103 U/L (38-126); Anion Gap 9 mmol/L; Blood Urea Nitrogen 12 mg/dL (7-17); Carbon Dioxide 25 mmol/L (22-30); Chloride 98 mmol/L (98-107); Glucose 238 mg/dL (74-99); Non-African American GFR(MDRD) >60 (>60 ml/min/1.73 sqM); Potassium 4.8 mmol/L (3.5-5.1); Sodium 132 mmol/L (137-145); Total Bilirubin 0.7 mg/dL (0.2-1.3); Total Protein 6.9 g/dL (6.3-8.2)
--- NOTE | 2017-04-18 11:20 | XR ---
EXAMINATION TYPE: XR chest 2V DATE OF EXAM: 04/18/2017 COMPARISON: NONE TECHNIQUE: PA and lateral views submitted. HISTORY: Cough FINDINGS: Large area of consolidation and pleural effusion on the left. Right lung clear. No pneumothorax. Left -sided central venous catheter. IMPRESSION: 1. Left-sided consolidation and small effusion.
--- NOTE | 2017-04-18 12:29 | CT ---
EXAMINATION TYPE: CT abdomen wo/w con DATE OF EXAM: 04/18/2017 COMPARISON: 03/17/2017 INDICATION: Patient complains of increasing intensity and duration of LUQ pain with known left side p erinephric abscess. DLP: 1593 mGycm, Automated exposure control for dose reduction was used. CONTRAST: 100 mL of Omnipaque 300. Study performed with Oral Contrast TECHNIQUE: Axial images were obtained from above the diaphragm to the pubic rami in the axial plane a t 5 mm thick sections. Reconstructed images are reviewed on the computer in the coronal plane. FINDINGS: Limited CT sections are obtained the lung bases. There is compressive atelectasis in the left lung b ase. A small left pleural effusion is present. Very minimal pericardial effusion is present.. CT ABDOMEN: Liver: Normal Spleen: Normal Pancreas: Normal Adrenal glands: The right adrenal gland is normal. Left adrenal gland appears normal. However, this d oes extend into some ill-defined density in the perinephric space. This likely is related to the kylah ent's reported perinephric abscess. Some minimal hemorrhage could be considered. This of uncertain et iology. Gallbladder: Surgically absent Kidneys: There is moderate left hydronephrosis. Mild hydroureter is present. Perinephric stranding is present. There is enlarged lymphadenopathy in the periaortic region. Underlying renal mass should be considered. Aorta: Normal Inferior vena cava: Normal. Loops of bowel within the abdomen and upper pelvis are normal. There are loops of bowel which are incompletely distended or lack oral contrast limiting their evaluation. Osseous structures: No suspicious lytic or sclerotic lesions. IMPRESSIONS: 1. Moderate left hydronephrosis. Perinephric stranding is present. There appears to be adenopathy in the periaortic region at the level of the renal artery and vein. This could be the patient's reporte d abscess. However, an underlying superior pole renal mass should also be considered within the diffe rential. Findings are less well visualized on the current examination due to lack of intravenous cont rast. Findings, given the lack of intravenous contrast, appears similar to prior. No increasing absce ss is identified. 2. Small left pleural effusion with compressive atelectasis left lung base.
== END | disposition home or self-care (01) ==
LOC: RADPROMAIN 09:50
PROVIDERS: ATTEND Urology
DX: N13.30 Unspecified hydronephrosis (principal); R59.0 Localized enlarged lymph nodes; J18.1 Lobar pneumonia, unspecified organism; J90 Pleural effusion, not elsewhere classified; Z01.818 Encounter for other preprocedural examination; D41.02 Neoplasm of uncertain behavior of left kidney; N39.0 Urinary tract infection, site not specified; Z01.810 Encounter for preprocedural cardiovascular examination; R05 Cough; R53.83 Other fatigue; Z88.5 Allergy status to narcotic agent
CPT/HCPCS: 80053; 85025; 71020; 74170; Q9967

== ENCOUNTER 2017-04-28 11:09 | Inpatient (IN) | payer OTHER ==
[2017-04-21 12:02] VITALS: BMI 25.7
[~2017-04-28 11:09] MED LIST: DEXAMETHASONE SOD PHOSPHATE 10 MG/ML 1 ML VIAL IV ONE; GENTAMICIN 100 MG in SODIUM CHLORIDE 0.9% 100 ML IVPB ONE; HYDROmorphone 0.5 MG/0.5 ML SYRINGE IVP PRN; LIDOCAINE 1% 20 ML VIAL (10MG/ML) FOR IV START INTRADERMA PRN; MIDAZOLAM 2 MG/2 ML VIAL IV PRN; ONDANSETRON 4 MG/2 ML VIAL IVP ONE; SCOPOLAMINE 1.5MG/72HR PATCH TRANSDERM ONE
[2017-04-28] MEDS: LACTATED RINGERS 1,000 ML IV SCH (11:47)
[2017-04-28 12:02] LABS: Glucose,Whole Blood 272 mg/dL (75-99)
[2017-04-28] MEDS: INSULIN LISPRO (humaLOG) 300 UNIT/3 ML VIAL SQ ONE ×2 (12:12→15:30)
[2017-04-28] MEDS ORDERED: VECURONIUM 10 MG VIAL IV ONE (12:39)
[2017-04-28] MEDS ORDERED: fentaNYL (PF) 50 MCG/ML 2 ML AMP ONE (12:39)
[2017-04-28] MEDS ORDERED: PROPOFOL 10 MG/ML 20 ML VIAL IV ONE (12:39)
[2017-04-28] MEDS ORDERED: PHENYLEPHRINE-0.9% NACL SYG 1 MG/10 ML SYRINGE ONE (12:39)
[2017-04-28] MEDS ORDERED: NEOSTIGMINE 1 MG/ML 10 ML VIAL ONE (12:39)
[2017-04-28] MEDS ORDERED: SUCCINYLCHOLINE CHLORIDE 100 MG/5 ML SYR IV ONE (12:39)
[2017-04-28] MEDS ORDERED: MIDAZOLAM 2 MG/2 ML VIAL ONE (12:39)
[2017-04-28] MEDS ORDERED: GLYCOPYRROLATE 0.2 MG/ML 2 ML VIAL ONE (12:39)
[2017-04-28] MEDS ORDERED: LIDOCAINE 1% INJ 10MG/ML (20 ML MDV) ONE (12:39)
[2017-04-28] MEDS ORDERED: NALOXONE 0.4 MG/ML 1 ML VIAL IV PRN (13:12)
[2017-04-28] MEDS ORDERED: LACTATED RINGERS 1,000 ML IV ONE ×2 (13:13→14:18)
[2017-04-28] MEDS ORDERED: KETOTIFEN 0.025% OPHTH DROPS 5 ML BTL BOTH EYES PRN (15:04)
--- NOTE | 2017-04-28 15:19 | P.OP ---
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 Hilar lymph nodes consistent with metastatic carcinoma 2. Biopsy of perirenal tissue sent for permanent section) Condition: stable Disposition: PACU Indications for Procedure: The patient is a 42-year-old diabetic sent from [facility] with a diagnosis of the perirenal abscess. The patient was having flank pain infected looking urine. She was placed on antibiotics up in [place] and then referred to us. We reviewed her computed tomography scan and were concerned of either a lobar nephronia or perhaps a xanthogranulomatous pyelonephritis. She was placed on antibiotics with follow-up recommended. She ended up in the hospital with a repeat computed tomography scan again identifying a markedly inflamed looking upper pole the kidney, a renal mass and then a large volume of enlarged perirenal lymph nodes. The possibilities included invasive renal cell carcinoma or xanthogranulomatous pyelonephritis. She was seen by infectious disease and they concurred. Given that she was diabetic, young, and infected looking urine with an elevated white count we are hoping that this was xanthogranulomatous pyelonephritis. She is sent home for IV antibiotics for several weeks to see if we can control this however she ended up coming back to the office complaining of persistent pain. I recommended that we proceed with removal of the kidney. I repeated the CAT scan and although it looked a little less inflamed we proceeded to come for this procedure. I did explain to the patient before hand that if it was a metastatic carcinoma originally that the delay in treating this with antibiotics would not change the outcome of a cancer but if she did respond antibiotics and was xanthogranulomatous pyelonephritis and a saber an operation. Description of Procedure: The patient was brought to the operating suite she is given epidural followed by general endotracheal anesthesia. A Carrion catheters placed sterilely. A left subcostal incision is made. The rectus and oblique fascias are opened. The peritoneum is inspected. His edema around the colon. The kidney seems somewhat fixed. We incised the white line of Toldt and then reflect the colon medially off the kidney. The kidney is quite enlarged and hard. It is not real mobile. We incise the attachment of the colon up over the kidney protecting the spleen. We go inferiorly and we reflect the colon until we can identify the aorta. The tissue is markedly edematous markedly inflamed and markedly hard. The planes or not well visualized. Eventually come down on the aorta and March superiorly to identify the renal vein. The renal vein is encased and hardened tissue. There were 2 lymph nodes identified and I elect to send them for frozen sections as this was not acting like an infectious process. Frozen section came back metastatic carcinoma. I sent another piece of tissue and this concurred with the first. In light of that the large amount of charleen tissue that was indurated and as well as immobility of the kidneyI elected to terminate the procedure as I did not think a heroic operation removing the kidney the indurated lymph nodes would be of benefit to the patient. My fear is that I would damage her cava, aorta ,spleen and/or pancreas in the process. The Tumor was very adherent , the planes were minimal at best and this would be a heroic operation given these findings. I thus controlled any bleeding. I Looked closely near the hilum of the spleen and bleeding is controlled. I then closed the wound in 3 layers of #1 Vicryl. The skin is stapled. 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
[2017-04-28 15:21] LABS: Glucose,Whole Blood 286 mg/dL (75-99)
[2017-04-28] MEDS: fentaNYL (PF) 50 MCG/ML 2 ML AMP IVP ONE ×2 (15:25→15:30)
[2017-04-28] MEDS ORDERED: diphenhydrAMINE 50 MG/ML 1 ML VIAL IVP ONE (15:30)
[2017-04-28] MEDS ORDERED: SODIUM CHLORIDE 0.9% 1,000 ML IV ONE (16:36)
[2017-04-28] MEDS ORDERED: AMPICILLIN 1,000 MG in SODIUM CHLORIDE 0.9% 50 ML IVPB ONE (23:00)
[2017-04-29] MEDS: SODIUM CHLORIDE 0.45% 1,000 ML IV SCH ×2 (07:58→09:06)
[2017-04-29] MEDS: BUPIVACAINE (PF) 0.5% 31.3 ML, HYDROMORPHONE (PF) 5 MG in SODIUM CHLORIDE 0.9% 218 ML EPIDURAL PRN (08:13)
[2017-04-29] MEDS: CITALOPRAM HYDROBROMIDE 20 MG TAB PO SCH (09:04)
[2017-04-29] MEDS: glipiZIDE 5 MG TAB PO SCH (09:04)
[2017-04-29] MEDS: LACTATED RINGERS 1,000 ML IV SCH (09:06)
--- NOTE | 2017-04-29 09:49 | P.PN ---
Subjective The patient is in her first postoperative day for a left renal exploration and biopsy of perirenal tissue. Frozen sections were consistent with carcinoma. The kidney and mass were unresectable which is not surprising given the carcinoma diagnosis. Her vital signs are stable. She is having discomfort which were trying to control the epidural. I discussed at length with the patient the findings from yesterday. I will consult oncology once the pathology has been finalized. This has been discussed with the patient also. Family is aware of the diagnosis. Objective - Vital Signs Vital signs: Vital Signs Temp 98.4 F 04/29/17 07:00 Pulse 103 H 04/29/17 07:00 Resp 18 04/29/17 07:00 BP 101/61 04/29/17 07:00 Pulse Ox 98 04/29/17 07:00 Intake & Output 04/28/17 04/29/17 04/29/17 18:59 06:59 18:59 Intake Total 3652.5 200 Output Total 800 Balance 2852.5 200 Weight 72.121 kg Intake: IV 3652.5 Oral 200 Output: Urine 250 Estimated Blood Loss 550 Other: Voiding Method Indwelling Catheter - Labs Labs: Abnormal Lab Results - Last 24 Hours (Table) 04/28/17 04/28/17 Range/Units 11:43 15:18 POC Glucose (mg/dL) 272 H 286 H (75-99) mg/dL
--- NOTE | 2017-04-29 11:27 | P.PN ---
Progress Note - Text 04/29 111 42-year-old female status post surgery by Dr. Hobbs. Epidural solution running at 12 mL an hour with a VAS of 3. Patient has breakthrough pain with coughing and movement. I did not change epidural solution rate as she looked pretty sleepy to me. Plan to continue the epidural infusion and evaluated her in the morning
[2017-04-29 11:57] LABS: Glucose,Whole Blood 149 mg/dL (75-99)
[2017-04-29] MEDS: INSULIN LISPRO (humaLOG) 300 UNIT/3 ML VIAL SQ SCH ×3 (13:15→20:36)
[2017-04-29 17:28] LABS: Glucose,Whole Blood 107 mg/dL (75-99)
[2017-04-29] MEDS: KETOROLAC 30 MG/ML 1 ML VIAL IVP PRN (18:20)
[2017-04-29 20:24] LABS: Glucose,Whole Blood 95 mg/dL (75-99)
[2017-04-30] MEDS: KETOROLAC 30 MG/ML 1 ML VIAL IVP PRN (00:30)
[2017-04-30] MEDS: BUPIVACAINE (PF) 0.5% 31.3 ML, HYDROMORPHONE (PF) 5 MG in SODIUM CHLORIDE 0.9% 218 ML EPIDURAL PRN (08:05)
[2017-04-30] MEDS: CITALOPRAM HYDROBROMIDE 20 MG TAB PO SCH (08:09)
[2017-04-30] MEDS: glipiZIDE 5 MG TAB PO SCH (08:10)
[2017-04-30] MEDS ORDERED: ALPRAZolam 0.5 MG TAB PO PRN (08:47)
[2017-04-30] MEDS: SODIUM CHLORIDE 0.45% 1,000 ML IV SCH ×3 (09:19→18:44)
[2017-04-30] MEDS: INSULIN LISPRO (humaLOG) 300 UNIT/3 ML VIAL SQ SCH ×4 (09:25→22:24)
[2017-04-30] MEDS: LACTATED RINGERS 1,000 ML IV SCH (09:25)
[2017-04-30] MEDS: ALPRAZolam 0.25 MG TAB PO PRN (11:11)
[2017-04-30 11:30] LABS: Glucose,Whole Blood 108 mg/dL (75-99)
[2017-04-30 12:02] LABS: Hemoglobin A1C 8.5 % (4.2-6.1)
--- NOTE | 2017-04-30 12:38 | P.PN ---
Subjective The patient is in her second postoperative day from a left renal exploration with biopsies of the locally invasive carcinoma possibly renal cell. The tumor is so encasing the kidney that it was elected not to proceed with a nephrectomy for fear of injuring major structures level on the high probability of this being a stage IV carcinoma. She is recuperating slowly. She has some nausea which has been controlled with Zofran. She has anxiety and she is on Xanax. Epidural seems to be controlling her pain at this point in time. I lengthy discussion with the sisters about the situation. Pending pathology as to further recommendations. I briefly spoken with oncology and they'll be involved once we get the final pathology. She'll need social work to assist in family care once we have further clarification as how we are going to handle this disease. Objective - Vital Signs Vital signs: Vital Signs Temp 97.6 F 04/30/17 07:00 Pulse 94 04/30/17 07:00 Resp 18 04/30/17 07:00 BP 109/56 04/30/17 07:00 Pulse Ox 97 04/30/17 07:00 Intake & Output 04/29/17 04/30/17 04/30/17 18:59 06:59 18:59 Intake Total 900 143.7 Output Total 650 Balance 250 143.7 Intake: Intake, IV Titration 800 143.7 Amount Bupivacaine (Pf) 0.5% 31. 143.7 3 ml Hydromorphone (Pf) 5 mg In Sodium Chloride 0. 9% 218 ml @ Per Protocol EPIDURAL .Q0M PRN Rx#: [id number] Sodium Chloride 0.9% 1, 800 000 ml As IV .[facility] Rx#:[id number] Oral 100 Output: Urine 650 Other: Voiding Method Indwelling Catheter Indwelling Catheter Indwelling Catheter - Labs Labs: Abnormal Lab Results - Last 24 Hours (Table) 04/29/17 04/30/17 04/30/17 Range/Units 17:25 06:36 11:09 POC Glucose (mg/dL) 107 H 108 H (75-99) mg/dL Hemoglobin A1c 8.5 H (4.2-6.1) %
[2017-04-30 13:12] LABS: CH 24.9; CHCM 31.4; HCT 25.4 % (34.0-46.0); HDW 3.57; Hypochromasia Moderate; MCH 25.4 pg (25.0-35.0); MCHC 31.9 g/dL (31.0-37.0); MCV 79.6 fL (80.0-100.0); Mean Platelet Volume 8.4; Poikilocytosis Slight; RBC 3.19 m/uL (3.80-5.40); RDW 14.1 % (11.5-15.5); WBC 16.2 k/uL (3.8-10.6)
[2017-04-30 13:14] LABS: HGB 8.1 gm/dL (11.4-16.0)
[2017-04-30 13:25] LABS: ALT 25 U/L (9-52); AST 53 U/L (14-36); Alkaline Phosphatase 95 U/L (38-126); Anion Gap 10 mmol/L; Blood Urea Nitrogen 11 mg/dL (7-17); Calcium 7.8 mg/dL (8.4-10.2); Carbon Dioxide 21 mmol/L (22-30); Chloride 101 mmol/L (98-107); Glucose 68 mg/dL (74-99); Non-African American GFR(MDRD) >60 (>60 ml/min/1.73 sqM); Potassium 4.5 mmol/L (3.5-5.1); Sodium 132 mmol/L (137-145); Total Bilirubin 0.4 mg/dL (0.2-1.3); Total Protein 4.8 g/dL (6.3-8.2)
--- NOTE | 2017-04-30 13:41 | P.PN ---
Progress Note - Text 04/30 915am 42-year-old female status post explore lap by . Epidural solution running at 7 mL an hour, solution and by the nurse because of weakness in her legs. Pain well controlled VAS of 2. Doing much better since yesterday
[2017-04-30] MEDS: ONDANSETRON 4 MG/2 ML VIAL IVP PRN (16:13)
[2017-04-30 17:46] LABS: Glucose,Whole Blood 89 mg/dL (75-99)
[2017-04-30 20:12] LABS: Glucose,Whole Blood 97 mg/dL (75-99)
[2017-05-01] MEDS: ONDANSETRON 4 MG/2 ML VIAL IVP PRN ×2 (02:11→13:21)
[2017-05-01] MEDS: KETOROLAC 30 MG/ML 1 ML VIAL IVP PRN ×2 (02:12→13:21)
[2017-05-01] MEDS: SODIUM CHLORIDE 0.45% 1,000 ML IV SCH ×2 (03:19→18:01)
[2017-05-01] MEDS: LACTATED RINGERS 1,000 ML IV SCH (05:53)
[2017-05-01 07:01] LABS: Glucose,Whole Blood 96 mg/dL (75-99)
[2017-05-01 07:17] LABS: Glucose,Whole Blood 96 mg/dL (75-99)
--- NOTE | 2017-05-01 07:43 | P.PN ---
Subjective The patient is in her third postoperative day from a left renal exploration with biopsies. The preoperative clinical appearance and the frozen sections identify carcinoma. The origin of this cancer is in question however most likely it is a primary renal cell. Pathology is pending. I have spoken briefly to oncology about consultation and we will begin this process. Her pain seems to be better. She got somewhat yesterday. Appetite is poor. Urine output is good. Vital signs are stable. Labs have been drawn this morning. She will continue with her convalescence. Objective - Vital Signs Vital signs: Vital Signs Temp 98.2 F 04/30/17 23:00 Pulse 105 H 05/01/17 00:00 Resp 16 05/01/17 00:00 BP 95/46 04/30/17 23:00 Pulse Ox 98 04/30/17 23:00 Intake & Output 04/30/17 05/01/17 05/01/17 18:59 06:59 18:59 Intake Total 143.7 160 Output Total 350 650 Balance -206.3 -490 Intake: Intake, IV Titration 143.7 Amount Bupivacaine (Pf) 0.5% 31. 143.7 3 ml Hydromorphone (Pf) 5 mg In Sodium Chloride 0. 9% 218 ml @ Per Protocol EPIDURAL .Q0M PRN Rx#: [id number] Oral 160 Output: Urine 350 650 Uretheral (Carrion) 350 Other: Voiding Method Indwelling Catheter Indwelling Catheter - Labs CBC & Chem 7: 04/30/17 06:36 04/30/17 06:36 Labs: Abnormal Lab Results - Last 24 Hours (Table) 04/30/17 04/30/17 04/30/17 Range/Units 06:36 06:36 06:36 WBC 16.2 H (3.8-10.6) k/uL RBC 3.19 L (3.80-5.40) m/uL Hgb 8.1 L D (11.4-16.0) gm/dL Hct 25.4 L (34.0-46.0) % MCV 79.6 L (80.0-100.0) fL Sodium 132 L (137-145) mmol/L Carbon Dioxide 21 L (22-30) mmol/L Glucose 68 L (74-99) mg/dL POC Glucose (mg/dL) (75-99) mg/dL Hemoglobin A1c 8.5 H (4.2-6.1) % Calcium 7.8 L (8.4-10.2) mg/dL AST 53 H (14-36) U/L Total Protein 4.8 L (6.3-8.2) g/dL Albumin 2.3 L (3.5-5.0) g/dL 04/30/17 Range/Units 11:09 WBC (3.8-10.6) k/uL RBC (3.80-5.40) m/uL Hgb (11.4-16.0) gm/dL Hct (34.0-46.0) % MCV (80.0-100.0) fL Sodium (137-145) mmol/L Carbon Dioxide (22-30) mmol/L Glucose (74-99) mg/dL POC Glucose (mg/dL) 108 H (75-99) mg/dL Hemoglobin A1c (4.2-6.1) % Calcium (8.4-10.2) mg/dL AST (14-36) U/L Total Protein (6.3-8.2) g/dL Albumin (3.5-5.0) g/dL
[2017-05-01] MEDS: CITALOPRAM HYDROBROMIDE 20 MG TAB PO SCH (08:40)
[2017-05-01] MEDS: glipiZIDE 5 MG TAB PO SCH (08:41)
[2017-05-01] MEDS: INSULIN LISPRO (humaLOG) 300 UNIT/3 ML VIAL SQ SCH ×4 (08:41→21:43)
[2017-05-01] MEDS ORDERED: RX INFO: IV CONTRAST WAS GIVEN 1 EACH MISC MISCELLANE PRN (09:10)
--- NOTE | 2017-05-01 09:16 | P.PN ---
Progress Note - Text 05/01 576 42-year-old female postop day 3 epidural solution running at 5 mL an hour. VAS of 3, doing well with pain control. epidural DC'd nurse informed,
--- NOTE | 2017-05-01 11:16 | CT ---
EXAMINATION TYPE: CT chest w con DATE OF EXAM: 05/01/2017 COMPARISON: CT abdomen pelvis 04/18/2017 HISTORY: carcinoma CT DLP: 383.9 mGycm Automated exposure control for dose reduction was used. CONTRAST: CT scan of the chest is performed with IV Contrast, patient injected with 100 mL of Omnipaque 300. FINDINGS: LUNGS: There is a large left-sided pleural effusion extending to the left lung apex. Moderate blaze sive atelectasis is identified. Smaller right-sided pleural effusion with mild right lower lobe compr essive atelectasis. No distinct pulmonary mass however given the degree of left-sided effusion and at electasis I cannot exclude such a possibility. Left-sided PICC line. MEDIASTINUM: Large right paratracheal lymph node mass measuring 3.9 x 2.6 cm. Subcarinal adenopathy m easuring 1 cm. No intra-abdominal adenopathy greater than 1 cm within the mediastinum or hilar region s. Thoracic aorta is of normal caliber. The heart is not enlarged. UPPER ABDOMEN: Masslike inflammatory change upper pole left kidney. Underlying infection or neoplasm not excluded. Retroperitoneal adenopathy is noted. Please see recent CT of the abdomen and pelvis. OTHER: No additional significant abnormality is seen. IMPRESSION: 1. No definite evidence for pulmonary mass at this time however there is a conglomerate area of adeno lady within the right paratracheal region. Large left-sided pleural effusion with moderate compressi ve atelectasis. Small area of compressive atelectasis right lower lobe and tiny right lower lobe effu casandra. 2. Upper abdominal findings as discussed.
[2017-05-01 11:55] LABS: Glucose,Whole Blood 106 mg/dL (75-99)
--- NOTE | 2017-05-01 12:42 | CT ---
EXAMINATION TYPE: CT brain w con DATE OF EXAM: 05/01/2017 COMPARISON: NONE HISTORY: carcinoma CT DLP: 945.5 mGycm Automated exposure control for dose reduction was used. CONTRAST: CT scan of the head is performed with IV Contrast, patient injected with 100 mL of Omnipaque 300. FINDINGS: There is no abnormal enhancing mass or midline shift identified. The ventricles and sulci are within normal limits in size. The globes are intact and the visualized sinuses are clear. IMPRESSION: Negative contrast enhanced head CT exam.
--- NOTE | 2017-05-01 14:19 | P.CONS ---
History of Present Illness - Reason for Consult Consult date: 05/01/17 carcinoma Requesting physician: Anthony Hobbs - Chief Complaint flank pain, hematuria - History of Present Illness Mrs. Boyer is a very pleasant female pt who was initially seen 03/17 at [facility] as a transfer from [place]. She had c/o left flank pain for 2 -3 months, associated with hematuria, wt. loss and weakness. Pt was to f/u with Urology and additional imaging was sched but pt insurance would not pay for the same so she waited. Pt was follow up by Urology and surgery was recommended for the abnormal findings-felt to be infectious cause. Unfortunately, during surgery Dr. Hobbs found evidence highly suggestive of malignancy, he sent frozen specimen and that did return as carcinoma, he excised a lymph node, path currently pending, and terminated the procedure for the safety of the patient. Pt seen today, she states 3 months left flank pain, persistent and progressive , moderate to severe, worse with movement, pain meds help, she has been progressively weak, she has now lost about 30lbs in 90 days, she has dizziness and nausea with position changes, mild abd distension, she has hematuria and constipation, she has a non-productive cough, it is uncomfortable to take a deep breath, it feels restricted. Denies vision changes, dysphagia, vomiting, no personal history of cancer, family history strong for multiple cancers. Review of Systems 14 point review of systems is as stated in HPI Constitutional: Denies chills, Denies fever Eyes: denies blurred vision, denies pain Ears, nose, mouth and throat: Denies headache, Denies sore throat Cardiovascular: Denies chest pain, Denies shortness of breath Respiratory: Denies cough Gastrointestinal: Denies abdominal pain, Denies diarrhea, Denies nausea, Denies vomiting Genitourinary: Denies dysuria, Denies hematuria Musculoskeletal: Denies myalgias Integumentary: Denies pruritus, Denies rash Neurological: Denies numbness, Denies weakness Psychiatric: Denies anxiety, Denies depression Endocrine: Denies fatigue, Denies weight change Past Medical History Past Medical History: Asthma, Diabetes Mellitus, Eye Disorder, GERD/Reflux, Hyperlipidemia, Osteoarthritis (OA), Skin Disorder, Thyroid Disorder Additional Past Medical History / Comment(s): CHRONIC YEAST INFECTION, CHRONIC JOINT PAIN, umbilical HERNIA, NEUROPATHY, OVARIAN CYSTS, IBS, MIGRAINES, TAILBONE FRACTURE 2014, ECZEMA, HEMORRHOIDS, "piece of vision missing from left eye", hx heart murmer, constipation, "spot on liver" History of Any Multi-Drug Resistant Organisms: None Reported Past Surgical History: Adenoidectomy, Section, Cholecystectomy, Tonsillectomy, Uterine Ablation Additional Past Surgical History / Comment(s): minor surgery on imer great toes for ingroin toenails, exploration with poss left nephrectomy 04/28/17 Past Anesthesia/Blood Transfusion Reactions: Motion Sickness Past Psychological History: ADD/ADHD, Anxiety, Depression Smoking Status: Never smoker Past Alcohol Use History: None Reported Past Drug Use History: None Reported - Past Family History Mother Family Medical History: Cancer Additional Family Medical History / Comment(s): ALZHEIMER'S Father Family Medical History: Cancer Sister(s) Family Medical History: Cancer, Deep Vein Thrombosis (DVT) Medications and Allergies Home Medications Medication Instructions Recorded Confirmed Type Citalopram Hydrobromide [CeleXA] 40 mg PO DAILY 02/05/17 04/21/17 History Gabapentin [Neurontin] 600 mg PO DAILY 02/05/17 04/21/17 History Ketotifen Fumarate [Alaway] 1 drop BOTH EYES DAILY PRN 02/05/17 04/21/17 History glipiZIDE [Glucotrol] 5 mg PO DAILY 03/17/17 04/21/17 History cefTRIAXone [Rocephin] 2,000 mg IVPB Q24HR #30 vial 03/22/17 04/21/17 Rx traMADol HCl [Ultram] 50 mg PO Q4-6H PRN 04/21/17 04/21/17 History Allergies Allergy/AdvReac Type Severity Reaction Status Date / Time morphine Allergy Mild Itching Verified 04/28/17 11:53 Physical Exam Vitals: Vital Signs Temp Pulse Pulse Resp BP Pulse Ox 05/01/17 07:00 97.9 F 86 18 105/61 96 05/01/17 00:00 105 H 97 16 04/30/17 23:00 98.2 F 105 H 16 95/46 98 04/30/17 15:00 98.3 F 101 H 18 102/65 98 Intake and Output 04/30/17 05/01/17 05/01/17 22:59 06:59 14:59 Intake Total 160 Output Total 350 650 Balance -190 -650 Intake: Oral 160 Output: Urine 350 650 Uretheral (Carrion) 350 Other: Voiding Method Indwelling Catheter Indwelling Catheter Indwelling Catheter - Constitutional General appearance: average body habitus, cooperative, mild distress - EENT Eyes: anicteric sclerae ENT: hearing grossly normal, normal oropharynx - Neck Neck: no lymphadenopathy - Respiratory Respiratory: bilateral: CTA, diminished - Cardiovascular Rhythm: regular Heart sounds: normal: S1, S2 Abnormal Heart Sounds: no systolic murmur, no diastolic murmur, no rub, no S3 Gallop, no S4 Gallop, no click, no other leg Peripheral Edema: bilateral: None - Gastrointestinal General gastrointestinal: no absent bowel sounds, decreased bowel sounds, no distended, no hepatomegaly, no hyperactive bowel sounds, no normal bowel sounds , no organomegaly, no rigid, no scaphoid, soft, no splenomegaly, tenderness, no umbilical hernia, no ventral hernia - Integumentary Integumentary: pale - Neurologic Neurologic: CNII-XII intact - Musculoskeletal Musculoskeletal: generalized weakness - Psychiatric Psychiatric: A&O x's 3, appropriate affect, intact judgment & insight Results CBC & Chem 7: 04/30/17 06:36 04/30/17 06:36 Labs: Abnormal Lab Results - Last 24 Hours (Table) 04/30/17 04/30/17 05/01/17 Range/Units 06:36 06:36 11:52 WBC 16.2 H (3.8-10.6) k/uL RBC 3.19 L (3.80-5.40) m/uL Hgb 8.1 L D (11.4-16.0) gm/dL Hct 25.4 L (34.0-46.0) % MCV 79.6 L (80.0-100.0) fL Sodium 132 L (137-145) mmol/L Carbon Dioxide 21 L (22-30) mmol/L Glucose 68 L (74-99) mg/dL POC Glucose (mg/dL) 106 H (75-99) mg/dL Calcium 7.8 L (8.4-10.2) mg/dL AST 53 H (14-36) U/L Total Protein 4.8 L (6.3-8.2) g/dL Albumin 2.3 L (3.5-5.0) g/dL Comments: operative note reviewed in detail CT scan - abdomen: report reviewed CT scan - pelvis: report reviewed Assessment and Plan (1) Carcinoma Status: Acute (2) Left renal mass Status: Acute (3) Flank pain Status: Acute Plan: Case was discussed with Dr. Hobbs, his interoperative impression is malignancy, pathology Is currently pending. CT of the chest and brain have been ordered to complete staging and for closer evaluation of left pleural effusion and lower lobe consolidation. Further recommendations to follow. Suspicious findings were discussed with pt and family at the bedside, all of their questions answered based on the current information.
[2017-05-01] MEDS ORDERED: HYDROcodone/APAP 5-325MG 1 EACH TAB PO PRN (16:40)
[2017-05-01 17:23] LABS: Glucose,Whole Blood 148 mg/dL (75-99)
[2017-05-01] MEDS: HYDROcodone/APAP 5-325MG 1 EACH TAB PO PRN (18:08)
[2017-05-01 20:04] LABS: Glucose,Whole Blood 141 mg/dL (75-99)
[2017-05-02] MEDS: SODIUM CHLORIDE 0.45% 1,000 ML IV SCH ×2 (00:37→09:28)
[2017-05-02] MEDS: ONDANSETRON 4 MG/2 ML VIAL IVP PRN ×4 (04:23→23:29)
[2017-05-02] MEDS: LACTATED RINGERS 1,000 ML IV SCH (06:17)
--- NOTE | 2017-05-02 07:31 | P.PN ---
Subjective The patient is postop left renal exploration with biopsy for an apparent metastatic carcinoma. The primary may be renal however it is not totally clear. Pathology is pending. The patient had a better day yesterday but is nauseated this morning. Her vital signs are stable. Her urine output is adequate. Her hemoglobin yesterday was 8 area and I suspect that is appropriate for the intraoperative blood loss, the lack of hydration preoperatively due to her discomfort and some postoperative blood loss. Abdomen soft. Her wound looks good. Oncology has been consulted and they are in the process of evaluating the patient. We will continue supportive care. Pending the biopsy report as to final recommendations. Objective - Vital Signs Vital signs: Vital Signs Temp 97.8 F 05/02/17 01:43 Pulse 91 05/02/17 01:43 Resp 16 05/02/17 01:43 BP 107/78 05/02/17 01:43 Pulse Ox 98 05/02/17 01:43 Intake & Output 05/01/17 05/02/17 05/02/17 18:59 06:59 18:59 Intake Total 910 Output Total 1000 125 Balance -1000 785 Weight 72.121 kg Intake: Oral 910 Output: Urine 1000 125 Uretheral (Carrion) 1000 Other: Voiding Method Indwelling Catheter Bedside Commode # Voids 2 - Labs CBC & Chem 7: 04/30/17 06:36 04/30/17 06:36 Labs: Abnormal Lab Results - Last 24 Hours (Table) 05/01/17 05/01/17 05/01/17 Range/Units 11:52 17:04 20:02 POC Glucose (mg/dL) 106 H 148 H 141 H (75-99) mg/dL
[2017-05-02 08:23] LABS: Glucose,Whole Blood 157 mg/dL (75-99)
[2017-05-02] MEDS: CITALOPRAM HYDROBROMIDE 20 MG TAB PO SCH (09:23)
[2017-05-02] MEDS: glipiZIDE 5 MG TAB PO SCH (09:24)
[2017-05-02] MEDS: INSULIN LISPRO (humaLOG) 300 UNIT/3 ML VIAL SQ SCH ×4 (09:24→20:59)
[2017-05-02] MEDS: KETOROLAC 30 MG/ML 1 ML VIAL IVP PRN ×3 (09:36→23:29)
[2017-05-02] MEDS: ALPRAZolam 0.25 MG TAB PO PRN (09:36)
[2017-05-02 10:41] LABS: Basophils % (A) 0 %; CH 24.4; Eosinophils # (A) 0.1 k/uL (0-0.7); Eosinophils % (A) 1 %; HCT 23.2 % (34.0-46.0); HDW 3.55; HGB 7.2 gm/dL (11.4-16.0); Hypochromasia Marked; Luc # (Auto) 0.16; Luc % (Auto) 2; Lymphocytes # (A) 0.9 k/uL (1.0-4.8); Lymphocytes % (A) 11 %; MCH 24.5 pg (25.0-35.0); Mean Platelet Volume 7.2; Monocytes # (A) 0.4 k/uL (0-1.0); Monocytes % (A) 5 %; Neutrophils % (A) 82 %; Poikilocytosis Slight; RBC 2.94 m/uL (3.80-5.40); RDW 13.7 % (11.5-15.5); WBC 8.6 k/uL (3.8-10.6); WBC (Perox) 8.76
[2017-05-02 11:17] LABS: Glucose,Whole Blood 150 mg/dL (75-99)
--- NOTE | 2017-05-02 16:18 | P.PN ---
Subjective Principal diagnosis: kidney mass Pt seen today in followup, she c/o abd and low back pain, she is very tired and nauseated, appetite is poor, she has had the ospina cath removed, no dysuria, she does not remember if she had a BM but she has had some flatus. Objective - Vital Signs Vital signs: Vital Signs Temp 98 F 05/02/17 07:00 Pulse 92 05/02/17 07:00 Resp 22 05/02/17 07:00 BP 139/83 05/02/17 07:00 Pulse Ox 96 05/02/17 07:00 Intake & Output 05/01/17 05/02/17 05/02/17 18:59 06:59 18:59 Intake Total 910 Output Total 1000 125 Balance -1000 785 Weight 72.121 kg Intake: Oral 910 Output: Urine 1000 125 Uretheral (Ospina) 1000 Other: Voiding Method Indwelling Catheter Bedside Commode Bedside Commode # Voids 2 - Constitutional General appearance: Present: cooperative, mild distress, obese - EENT Eyes: Present: anicteric sclerae - Respiratory Respiratory: left: diminished, bilateral: rales (scattered) - Cardiovascular Rhythm: regular Heart sounds: normal: S1, S2 - Peripheral edema foot Peripheral Edema: bilateral: None - Gastrointestinal Gastrointestinal Comment(s): abd incision is free of drainage, redness, edges approximated, no visible bruising General gastrointestinal: Present: normal bowel sounds, soft, tenderness - Integumentary Integumentary: Present: pale - Neurologic Neurologic: Present: CNII-XII intact - Musculoskeletal Musculoskeletal: Present: generalized weakness - Psychiatric Psychiatric: Present: A&O x's 3, appropriate affect, intact judgment & insight - Labs CBC & Chem 7: 05/02/17 09:50 04/30/17 06:36 Labs: Abnormal Lab Results - Last 24 Hours (Table) 05/01/17 05/01/17 05/02/17 Range/Units 17:04 20:02 08:03 RBC (3.80-5.40) m/uL Hgb (11.4-16.0) gm/dL Hct (34.0-46.0) % MCV (80.0-100.0) fL MCH (25.0-35.0) pg Lymphocytes # (1.0-4.8) k/uL POC Glucose (mg/dL) 148 H 141 H 157 H (75-99) mg/dL 05/02/17 05/02/17 Range/Units 09:50 11:03 RBC 2.94 L (3.80-5.40) m/uL Hgb 7.2 L (11.4-16.0) gm/dL Hct 23.2 L (34.0-46.0) % MCV 79.0 L (80.0-100.0) fL MCH 24.5 L (25.0-35.0) pg Lymphocytes # 0.9 L (1.0-4.8) k/uL POC Glucose (mg/dL) 150 H (75-99) mg/dL - Imaging and Cardiology CT scan - chest: report reviewed CT Scan - head: report reviewed Assessment and Plan (1) Carcinoma Narrative/Plan: Path pending, will discuss results with pt and family when available CT head was negative for malignancy CT chest showing pleural effusion on the left with medistinal lymphedenopathy. IR has been consulted for therapeutic and diagnostic throacentesis, request cytology on pleural fluid Status: Acute (2) Left renal mass Status: Acute (3) Flank pain Narrative/Plan: Cont to titrate pain meds for comfort Status: Acute (4) Anemia Narrative/Plan: Progressive anemia-concern is for hematoma or hemorrhage. CT CAP without contrast ordered now. 1 unit PRBCs ordered for Hgb 7.2 Anemia work up ordered Status: Acute
[2017-05-02 17:11] LABS: Glucose,Whole Blood 115 mg/dL (75-99)
--- NOTE | 2017-05-02 17:54 | CT ---
EXAMINATION TYPE: CT ChestAbdPelvis wo con DATE OF EXAM: 05/02/2017 COMPARISON: CT chest May 01, 2017. CT abdomen and pelvis April 18, 2017. CT abdomen and pelvis March 17, 2017. HISTORY: 4 gram drop in Hgb s/p procedure. Possible hematoma or bleed. CT DLP: 699.80 mGycm. Automated Exposure Control for Dose Reduction was Utilized. TECHNIQUE: CT scan of the thorax, abdomen and pelvis is performed without IV contrast. FINDINGS: LUNGS: There is persistent moderate left-sided pleural effusion. There is slightly larger tiny right pleural effusion versus prior. There is associated compressive atelectasis in both lower lungs. Patch y opacity posteriorly left upper lobe could reflect edema and/or infiltrate. MEDIASTINUM: There is persistent enlarged right pericarinal lymph node measuring 3.0 x 2.1 cm on axia l image 15 perhaps slightly smaller in size versus prior. Heart size is upper limits of normal There is tiny to small pericardial effusion slightly larger versus prior. There is persistent left-sided P ICC line with tip in SVC OTHER: No additional significant abnormality is seen. LIVER/GB: Cholecystectomy clips are redemonstrated. PANCREAS: No significant abnormality is seen. SPLEEN: No significant abnormality is seen. ADRENALS: No significant abnormality is seen. KIDNEYS: Large irregularity possible left renal mass is redemonstrated. There is hyperdense filling l ower pole of left kidney and collecting system. This is presumed retained contrast related to failure . Cannot exclude hematoma into collecting system if there has been recent procedure into the collecti ng system. There is new ill-defined surrounding fluid lower pole level. There is soft tissue invasion into the left para-aortic retroperitoneal space redemonstrated. BOWEL: No significant abnormality is seen. GENITAL ORGANS: Anteverted uterus is redemonstrated. There is moderate amount of free fluid in the pe lvis. Hyperdense lesion left adnexa or ovary on axial image 103 is again seen. LYMPH NODES: There is persistent irregular retroperitoneal adenopathy OSSEOUS STRUCTURES: No significant abnormality is seen. OTHER: There is small amount of fluid in the left paracolic gutter. There is new mild to moderate dif fuse soft tissue anasarca in the abdomen and pelvis. IMPRESSION: New moderate amount of free fluid in pelvic cul-de-sac. Small amount of fluid left paracolic gutter. Stable moderate left-sided pleural effusion. Left renal mass or neoplasm with metastatic disease or adenopathy is suspected similar to prior. New small to mo derate left-sided perinephric fluid inferiorly. Possible collecting system hematoma lower pole level. No large focal fluid collection to account for patient's significant blood loss is otherwise identif ied.
[2017-05-02 19:59] LABS: Glucose,Whole Blood 116 mg/dL (75-99)
[2017-05-02 20:06] LABS: Basophils % (A) 0 %; CH 24.3; CHCM 30.7; Eosinophils # (A) 0.1 k/uL (0-0.7); Eosinophils % (A) 1 %; HCT 22.9 % (34.0-46.0); HDW 3.59; HGB 7.2 gm/dL (11.4-16.0); Hypochromasia Marked; Luc # (Auto) 0.19; Luc % (Auto) 2; Lymphocytes % (A) 12 %; MCH 25.1 pg (25.0-35.0); MCHC 31.6 g/dL (31.0-37.0); MCV 79.4 fL (80.0-100.0); Mean Platelet Volume 6.6; Monocytes # (A) 0.4 k/uL (0-1.0); Monocytes % (A) 5 %; Neutrophils # (A) 6.7 k/uL (1.3-7.7); Neutrophils % (A) 80 %; Poikilocytosis Slight; RBC 2.89 m/uL (3.80-5.40); RDW 13.6 % (11.5-15.5); WBC 8.4 k/uL (3.8-10.6); WBC (Perox) 8.49
[2017-05-03] MEDS: SODIUM CHLORIDE 0.45% 1,000 ML IV SCH ×3 (02:18→09:07)
[2017-05-03] MEDS: LACTATED RINGERS 1,000 ML IV SCH (04:33)
[2017-05-03] MEDS: ONDANSETRON 4 MG/2 ML VIAL IVP PRN ×2 (05:26→18:59)
[2017-05-03] MEDS: KETOROLAC 30 MG/ML 1 ML VIAL IVP PRN (05:26)
[2017-05-03 07:23] LABS: Glucose,Whole Blood 123 mg/dL (75-99)
[2017-05-03 08:06] LABS: INR 1.1 (<1.2); Partial Thromboplastin Time 26.8 sec (22.0-30.0)
[2017-05-03 08:13] LABS: Basophils % (A) 0 %; CH 25.3; CHCM 32.2; Eosinophils # (A) 0.1 k/uL (0-0.7); Eosinophils % (A) 1 %; HCT 22.2 % (34.0-46.0); HDW 3.63; Hypochromasia Slight; Luc # (Auto) 0.09; Luc % (Auto) 1; Lymphocytes # (A) 0.9 k/uL (1.0-4.8); Lymphocytes % (A) 12 %; MCH 24.9 pg (25.0-35.0); MCHC 31.6 g/dL (31.0-37.0); MCV 78.8 fL (80.0-100.0); Mean Platelet Volume 7.3; Monocytes # (A) 0.5 k/uL (0-1.0); Monocytes % (A) 6 %; Neutrophils % (A) 79 %; Poikilocytosis Slight; RBC 2.81 m/uL (3.80-5.40); RDW 14.5 % (11.5-15.5); WBC 7.6 k/uL (3.8-10.6); WBC (Perox) 7.47
[2017-05-03 08:18] LABS: ALT 27 U/L (9-52); AST 25 U/L (14-36); Alkaline Phosphatase 98 U/L (38-126); Anion Gap 11 mmol/L; Blood Urea Nitrogen 3 mg/dL (7-17); Calcium 7.9 mg/dL (8.4-10.2); Carbon Dioxide 21 mmol/L (22-30); Chloride 105 mmol/L (98-107); Glucose 100 mg/dL (74-99); Non-African American GFR(MDRD) >60 (>60 ml/min/1.73 sqM); Potassium 3.8 mmol/L (3.5-5.1); Sodium 137 mmol/L (137-145); Total Bilirubin 0.2 mg/dL (0.2-1.3); Total Protein 4.7 g/dL (6.3-8.2)
[2017-05-03] MEDS: CITALOPRAM HYDROBROMIDE 20 MG TAB PO SCH (09:21)
[2017-05-03] MEDS: glipiZIDE 5 MG TAB PO SCH (09:21)
[2017-05-03] MEDS: INSULIN LISPRO (humaLOG) 300 UNIT/3 ML VIAL SQ SCH ×5 (09:21→23:05)
[2017-05-03] MEDS ORDERED: METOCLOPRAMIDE 5 MG/ML 2 ML VIAL IVP SCH ×2 (10:00→21:00)
--- NOTE | 2017-05-03 11:00 | P.PN ---
Subjective The patient continues to recuperate from her renal exploration. Her vital signs are stable although she is weak. Her hemoglobin repeat was at 7 the she will get a blood transfusion. She had a repeat computed tomography scan showing some perinephric fluid all. Stable I suspect that's bleeding postsurgical. Her urine output is adequate. She has persistent nausea this Reglan has been started. Her pathology has come back as a renal cell carcinoma. She is to get the left pleural effusion tapped today for both diagnostic and therapeutic reasons. I've asked social work to see the patient and family for assistance in the postoperative care. Unfortunately her long- term prognosis is poor. I've discussed this with the sister. Objective - Vital Signs Vital signs: Vital Signs Temp 98.2 F 05/03/17 10:34 Pulse 97 05/03/17 10:34 Resp 16 05/03/17 10:34 BP 122/72 05/03/17 10:34 Pulse Ox 90 L 05/03/17 10:34 Intake & Output 05/02/17 05/03/17 05/03/17 18:59 06:59 18:59 Intake Total 1350 0 Balance 1350 0 Intake: Intake, IV Titration 400 Amount Sodium Chloride 0.45% 1, 400 000 ml @ 100 mls/hr IV . Q10H [facility] Rx#:[id number] Oral 950 Blood Product 0 Rc As-1 Unit 0 [id number] Other: Voiding Method Bedside Commode Toilet Toilet Bedside Commode Bedside Commode # Voids 2 2 # Bowel Movements 1 - Labs CBC & Chem 7: 05/03/17 07:30 05/03/17 07:30 Labs: Abnormal Lab Results - Last 24 Hours (Table) 05/02/17 05/02/17 05/02/17 Range/Units 11:03 16:36 16:59 RBC (3.80-5.40) m/uL Hgb (11.4-16.0) gm/dL Hct (34.0-46.0) % MCV (80.0-100.0) fL MCH (25.0-35.0) pg Lymphocytes # (1.0-4.8) k/uL Carbon Dioxide (22-30) mmol/L BUN (7-17) mg/dL Glucose (74-99) mg/dL POC Glucose (mg/dL) 150 H 115 H (75-99) mg/dL Calcium (8.4-10.2) mg/dL Total Protein (6.3-8.2) g/dL Albumin (3.5-5.0) g/dL Crossmatch See Detail 05/02/17 05/02/17 05/03/17 Range/Units 19:45 19:58 07:21 RBC 2.89 L (3.80-5.40) m/uL Hgb 7.2 L (11.4-16.0) gm/dL Hct 22.9 L (34.0-46.0) % MCV 79.4 L (80.0-100.0) fL MCH (25.0-35.0) pg Lymphocytes # (1.0-4.8) k/uL Carbon Dioxide (22-30) mmol/L BUN (7-17) mg/dL Glucose (74-99) mg/dL POC Glucose (mg/dL) 116 H 123 H (75-99) mg/dL Calcium (8.4-10.2) mg/dL Total Protein (6.3-8.2) g/dL Albumin (3.5-5.0) g/dL Crossmatch 05/03/17 05/03/17 Range/Units 07:30 07:30 RBC 2.81 L (3.80-5.40) m/uL Hgb 7.0 L* (11.4-16.0) gm/dL Hct 22.2 L (34.0-46.0) % MCV 78.8 L (80.0-100.0) fL MCH 24.9 L (25.0-35.0) pg Lymphocytes # 0.9 L (1.0-4.8) k/uL Carbon Dioxide 21 L (22-30) mmol/L BUN 3 L (7-17) mg/dL Glucose 100 H (74-99) mg/dL POC Glucose (mg/dL) (75-99) mg/dL Calcium 7.9 L (8.4-10.2) mg/dL Total Protein 4.7 L (6.3-8.2) g/dL Albumin 2.2 L (3.5-5.0) g/dL Crossmatch
--- NOTE | 2017-05-03 12:59 | XR ---
EXAMINATION TYPE: XR chest 1V portable DATE OF EXAM: 05/03/2017 COMPARISON: 04/18/2017 HISTORY: Post thoracentesis on the left TECHNIQUE: Single frontal view of the chest is obtained. FINDINGS: Small layering left pleural effusion with associated left basilar airspace disease remains . No postprocedural pneumothorax is identified. Left-sided PICC terminates in the distal superior jena a cava. Right lung remains clear. Cardiomediastinal silhouette is partially obscured but appears stab le. Cholecystectomy clips within the right upper quadrant are present. IMPRESSION: Small residual left pneumothorax with left basilar consolidation, likely atelectasis. No postprocedural pneumothorax.
[2017-05-03 13:01] LABS: Glucose,Whole Blood 130 mg/dL (75-99)
--- NOTE | 2017-05-03 13:55 | US ---
EXAMINATION TYPE: US thoracentesis DATE OF EXAM: 05/03/2017 COMPARISON: NONE HISTORY: Pleural effusion. FINDINGS: Maximal barrier technique was utilized. The skin overlying a suitable pocket of fluid was localized and the overlying skin prepped and draped. Lidocaine was used for local anesthesia. Ultras ound was used with sterile technique. A 5 Indonesian catheter over guide needle was advanced into the pl eural fluid collection using ultrasound guidance and the catheter advanced, needle removed. Approxim ately 0.56 liter(s) of sanguinous fluid was removed. Catheter was withdrawn and hemostasis achieved. There is no immediate complication. The patient discharged in stable condition without complicatio n. IMPRESSION: STATUS POST ULTRASOUND GUIDED THORACENTESIS, POST PROCEDURE CHEST X-RAY PENDING. THIS NM OCEDURE WAS PERFORMED BY THE UNDERSIGNED. Specimen sent for analysis.
[2017-05-03 17:13] LABS: Glucose,Whole Blood 145 mg/dL (75-99)
[2017-05-03] MEDS: PANTOPRAZOLE 40 MG/10 ML VIAL IVP SCH (18:59)
[2017-05-03 19:48] LABS: Glucose,Whole Blood 128 mg/dL (75-99)
[2017-05-03] MEDS: HYDROmorphone 1 MG/ML 1 ML SYRINGE IVP PRN ×2 (20:47→23:34)
--- NOTE | 2017-05-03 22:13 | CONS ---
CONSULTATION DATE OF SERVICE: 05/03/2017 REASON FOR CONSULTATION: Advice regarding anemia and other multiple medical issues, requested by Dr. Hobbs. HISTORY OF PRESENT ILLNESS: This 42-year-old woman with a past medical history of multiple medical problems, being followed by a primary physician in the [facility], was admitted with an apparent renal mass, and the patient underwent left renal exploration and biopsy of a perihilar lymph node which came back positive as metastatic, poorly differentiated malignant neoplasm, possibly carcinoma, and the patient was admitted for further evaluation and treatment. Currently the patient is complaining of nausea and abdominal pain. The patient also had evidence of multiple metastatic lesions. Dr. Spivey is following the patient. The patient also had left chest tube drainage. Biopsy is pending at this time. Lymph nodes also visualized in the CT scan of the pelvis and the chest and abdomen. There is no history of fever, rigors or chills. No headache, loss of consciousness or seizures. PAST MEDICAL HISTORY: 1. History of diabetes mellitus. 2. Asthma. 3. History of DJD. 4. History of hypertension. MEDICATIONS: Medications prior to admission include: 1. Ultram 50 mg q.4 p.r.n. 2. Glucotrol 5 mg p.o. daily. 3. Rocephin 2 grams daily. 4. Alaway 1 drop both eyes. 5. Neurontin 600 mg daily. 6. Celexa 40 mg daily. ALLERGIES: MORPHINE. FAMILY HISTORY: History of cancer and dementia in the family. SOCIAL HISTORY: No history of smoking. No history of alcohol intake. REVIEW OF SYSTEMS: ENT: No diminished hearing. No diminished vision. CARDIOVASCULAR: No angina, palpitations. RESPIRATORY SYSTEM: No cough, hemoptysis. GI: As mentioned earlier. : As mentioned earlier. NERVOUS SYSTEM: No numbness, weakness. ALLERGY/IMMUNOLOGY: No asthma, hayfever. MUSCULOSKELETAL: As mentioned earlier. HEMATOLOGY/ONCOLOGY: No history of anemia. ENDOCRINE: Diabetes mellitus. CONSTITUTIONAL: As mentioned earlier. DERMATOLOGY: Negative. RHEUMATOLOGY: Negative. PSYCHIATRY: As mentioned earlier. PHYSICAL EXAM: Patient is alert, oriented x3. Pulse is 84, blood pressure 148/81, respiration 16, temperature normal. Pulse ox 98% on 2 L. HEENT: Conjunctivae normal. Oral mucosa moist. NECK: No jugular venous distention. No carotid bruit. No lymph node enlargement. CARDIOVASCULAR SYSTEM: S1, S2 muffled. No S3. No S4. RESPIRATORY SYSTEM: Breath sounds diminished at the bases. Scattered rhonchi. No crackles. ABDOMEN: Soft, status post surgery. No guarding. No rigidity. Bowel sounds present. LEGS: No edema. No swelling. NERVOUS SYSTEM: Higher functions as mentioned earlier. Moves all 4 limbs. No focal motor or sensory deficit. LYMPHATICS: No lymph node palpable in neck, axillae or groin. SKIN: No ulcer, rash, bleeding. LABS AT THIS TIME: WBC 7.6, hemoglobin 7. Glucose 130, 145. ASSESSMENT: 1. 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 2. Diabetes mellitus, type 2. 3. Nausea; possible acute gastritis. 4. History of asthma. 5. Gastroesophageal reflux disease. 6. Hypertension. 7. Hyperlipidemia. 8. History of left pleural effusion, status post thoracocentesis. 9. Chronic yeast infection. 10.History of degenerative joint disease. 11.Attention deficit disorder/attention deficit hyperactivity disorder. 12.History of anxiety. RECOMMENDATIONS AND DISCUSSION: In this 42-year-old woman who presented with multiple complex medical issues., we will we will monitor the patient closely, continue the current medications, continue with symptomatic treatment. Otherwise at this time I would recommend proton pump inhibitors. Monitor hemoglobin closely. The patient received one unit of transfusion. DVT prophylaxis. Symptomatic treatment. Will follow the patient closely with you. Thank you for letting us participate in the care of this patient. MMODL / IJN: [id number] /
[2017-05-03] MEDS: METOCLOPRAMIDE 5 MG/ML 2 ML VIAL IVP SCH (23:27)
[2017-05-04] MEDS: ONDANSETRON 4 MG/2 ML VIAL IVP PRN ×4 (02:46→21:16)
[2017-05-04] MEDS: HYDROcodone/APAP 5-325MG 1 EACH TAB PO PRN (02:55)
[2017-05-04] MEDS: SODIUM CHLORIDE 0.45% 1,000 ML IV SCH ×2 (03:58→08:59)
[2017-05-04] MEDS: METOCLOPRAMIDE 5 MG/ML 2 ML VIAL IVP SCH ×3 (06:04→18:10)
[2017-05-04 06:24] LABS: Basophils % (A) 0 %; CH 25.3; CHCM 31.1; Eosinophils # (A) 0.1 k/uL (0-0.7); Eosinophils % (A) 1 %; HCT 26.6 % (34.0-46.0); HDW 3.71; HGB 8.3 gm/dL (11.4-16.0); Hypochromasia Marked; Luc # (Auto) 0.24; Luc % (Auto) 3; Lymphocytes # (A) 1.2 k/uL (1.0-4.8); Lymphocytes % (A) 13 %; MCH 25.4 pg (25.0-35.0); MCHC 31.1 g/dL (31.0-37.0); MCV 81.7 fL (80.0-100.0); Mean Platelet Volume 6.7; Monocytes # (A) 0.7 k/uL (0-1.0); Monocytes % (A) 7 %; Neutrophils % (A) 76 %; Poikilocytosis Slight; RBC 3.26 m/uL (3.80-5.40); RDW 15.4 % (11.5-15.5); WBC 9.2 k/uL (3.8-10.6); WBC (Perox) 9.46
[2017-05-04 07:04] LABS: Glucose,Whole Blood 151 mg/dL (75-99)
[2017-05-04] MEDS: glipiZIDE 5 MG TAB PO SCH (08:56)
[2017-05-04] MEDS: PANTOPRAZOLE 40 MG/10 ML VIAL IVP SCH ×2 (08:57→21:35)
[2017-05-04] MEDS: GABAPENTIN 300 MG CAP PO SCH (08:58)
[2017-05-04] MEDS: INSULIN LISPRO (humaLOG) 300 UNIT/3 ML VIAL SQ SCH ×4 (08:58→21:35)
[2017-05-04] MEDS: CITALOPRAM HYDROBROMIDE 20 MG TAB PO SCH (08:58)
[2017-05-04] MEDS: LORazepam 2 MG/ML INJ IV PRN ×2 (09:15→18:10)
--- NOTE | 2017-05-04 11:10 | P.PN ---
Subjective The patient is slowly improving post left renal exploration. She still has persistent nausea and is on Reglan and Zofran. Dr Childress of medicine is now aiding in her perioperative medical management. She feels better after the blood transfusion. Her vital signs are stable. She is urinating without difficulty. Her wound looks good. Cytology from the thoracentesis is pending. We'll continue with supportive care until Dr. Spivey and oncology decide on treatment for this renal cell carcinoma. Objective - Vital Signs Vital signs: Vital Signs Temp 98.1 F 05/04/17 07:25 Pulse 86 05/04/17 07:25 Resp 16 05/04/17 07:25 BP 143/87 05/04/17 07:25 Pulse Ox 98 05/04/17 07:52 Intake & Output 05/03/17 05/04/17 05/04/17 18:59 06:59 18:59 Intake Total 1120 750 Output Total 560 Balance 560 750 Weight 72.121 kg Intake: Intake, IV Titration 500 160 Amount Sodium Chloride 0.45% 1, 500 160 000 ml @ 100 mls/hr IV . Q10H [facility] Rx#:[id number] Oral 590 Blood Product 620 Rc As-1 Unit 310 [id number] Output: Other 560 Other: Voiding Method Toilet Toilet Toilet Bedside Commode Bedside Commode # Voids 3 1 # Bowel Movements 1 - Labs CBC & Chem 7: 05/04/17 06:10 05/03/17 07:30 Labs: Abnormal Lab Results - Last 24 Hours (Table) 05/02/17 05/03/17 05/03/17 Range/Units 16:36 12:59 17:11 RBC (3.80-5.40) m/uL Hgb (11.4-16.0) gm/dL Hct (34.0-46.0) % Plt Count (150-450) k/uL POC Glucose (mg/dL) 130 H 145 H (75-99) mg/dL Crossmatch See Detail 05/03/17 05/04/17 05/04/17 Range/Units 19:46 06:10 07:03 RBC 3.26 L (3.80-5.40) m/uL Hgb 8.3 L (11.4-16.0) gm/dL Hct 26.6 L (34.0-46.0) % Plt Count 453 H (150-450) k/uL POC Glucose (mg/dL) 128 H 151 H (75-99) mg/dL Crossmatch
[2017-05-04 11:55] LABS: Glucose,Whole Blood 143 mg/dL (75-99)
[2017-05-04] MEDS: HYDROmorphone 0.5 MG/0.5 ML SYRINGE IVP PRN ×3 (12:00→21:21)
--- NOTE | 2017-05-04 16:02 | PN ---
PROGRESS NOTE DATE OF SERVICE: 05/04/2017 This 42-year-old woman possibly had a metastatic renal cell carcinoma, also had anemia. Patient also had nausea and vomiting. Also, patient unable to keep anything down. The final cytology is pending at this time. No chest pain. No palpitations. No fever. EXAM: Alert, oriented x3. Pulse 86, blood pressure 140/88, respirations 16, temperature 98.1, pulse ox 98% on 2L. HEENT: Conjunctivae normal. Oral mucosa moist. NECK: No jugular venous distention. No carotid bruits. No lymph node enlargement. No thyroid enlargement. CARDIOVASCULAR: S1, S2 muffled. No S3. No S4. RESPIRATORY: Breath sounds diminished in the bases. No rhonchi. No crackles. ABDOMEN: Soft, status post surgery. No guarding. No rigidity. No mass palpable. NERVOUS SYSTEM: Nonfocal. LAB STUDIES: WBC 9.8, hemoglobin is 8.3. ASSESSMENT: 1. Left renal, possibly metastatic poorly-differentiated carcinoma, renal cell possibly. 2. Intractable nausea, vomiting, possible acute gastritis. 3. Diabetes mellitus type 2. 4. History of asthma. 5. Gastroesophageal reflux disease. 6. Hypertension. 7. Hyperlipidemia. 8. History of left pleural effusion, status post thoracocentesis. Final biopsy pending. 9. Chronic yeast infection. 10.History of degenerative joint disease. 11.Attention deficit hyperactivity disorder. 12.History of anxiety. RECOMMENDATIONS AND DISCUSSION: In this 42-year-old woman who presented with multiple complex medical issues, will monitor the patient closely. Continue the current management. Continue with symptomatic treatment. The patient is started on Protonix and Reglan and also uses p.r.n. Ativan. Continue to monitor. Prognosis guarded. Await final biopsy report. Further recommendations to follow. MMODL / IJN: [id number] /
[2017-05-04 17:49] LABS: Glucose,Whole Blood 148 mg/dL (75-99)
[2017-05-04 20:24] LABS: Glucose,Whole Blood 152 mg/dL (75-99)
[2017-05-05] MEDS: METOCLOPRAMIDE 5 MG/ML 2 ML VIAL IVP SCH ×5 (00:15→23:51)
[2017-05-05] MEDS: HYDROmorphone 0.5 MG/0.5 ML SYRINGE IVP PRN ×5 (00:19→22:03)
[2017-05-05] MEDS: LORazepam 2 MG/ML INJ IV PRN ×2 (03:44→10:18)
[2017-05-05] MEDS: ONDANSETRON 4 MG/2 ML VIAL IVP PRN ×3 (03:44→15:51)
--- NOTE | 2017-05-05 07:18 | P.PN ---
Subjective The patient continues to recuperate from her left renal exploration. Her pain is less but her nausea persists. The cytology is pending. Await further recommendations from oncology based on that. Vital signs are stable. Objective - Vital Signs Vital signs: Vital Signs Temp 98.1 F 05/05/17 00:17 Pulse 118 H 05/05/17 00:17 Resp 16 05/05/17 00:17 BP 138/86 05/05/17 00:17 Pulse Ox 95 05/05/17 00:17 Intake & Output 05/04/17 05/05/17 05/05/17 18:59 06:59 18:59 Intake Total 600 550 Balance 600 550 Weight 72.121 kg Intake: Intake, IV Titration 600 Amount Sodium Chloride 0.45% 1, 600 000 ml @ 50 mls/hr IV . Q20H [facility] Rx#:[id number] Oral 550 Other: Voiding Method Toilet Toilet # Voids 1 - Labs CBC & Chem 7: 05/04/17 06:10 05/03/17 07:30 Labs: Abnormal Lab Results - Last 24 Hours (Table) 05/04/17 05/04/17 05/04/17 Range/Units 11:26 17:34 20:22 POC Glucose (mg/dL) 143 H 148 H 152 H (75-99) mg/dL
[2017-05-05] MEDS: SODIUM CHLORIDE 0.45% 1,000 ML IV SCH ×2 (07:34→10:18)
[2017-05-05 07:39] LABS: Glucose,Whole Blood 172 mg/dL (75-99)
[2017-05-05] MEDS: INSULIN LISPRO (humaLOG) 300 UNIT/3 ML VIAL SQ SCH ×4 (09:33→21:59)
[2017-05-05] MEDS: GABAPENTIN 300 MG CAP PO SCH (09:34)
[2017-05-05] MEDS: CITALOPRAM HYDROBROMIDE 20 MG TAB PO SCH (09:34)
[2017-05-05] MEDS: glipiZIDE 5 MG TAB PO SCH (09:34)
[2017-05-05] MEDS: PANTOPRAZOLE 40 MG/10 ML VIAL IVP SCH ×2 (09:34→21:56)
--- NOTE | 2017-05-05 10:44 | CDI ---
In responding to this query, please exercise your independent professional judgment. The [facility] Coding Staff and Clinical Documentation Specialists appreciate your assistance in clarifying documentation, maintaining compliance with coding guidelines, accurately documenting patients condition and capturing severity of illness. The fact that a question is asked does not imply that any particular answer is desired or expected. Communication forms are a method of clarifying documentation and are not made part of the Legal Health Record. Thank you in advance for your clarification. Last Revision, May 2015 Rober Sosa [address] [facility] [place] [address] Documentation Clarification Form Date: 05/05/2017 10:27:00 AM From: Nelda Tatum RN, CCDS Admit Date: 04/28/2017 11:09:00 AM Patient Name: Alice Boyer Visit Number: [id number] Dr. Childress A diagnosis of anemia lacks specificity to accurately reflect your patients severity of condition and clarification is needed. Patient history/risk factors: 05/04 Attending: l renal metastatic poorly differentiated, dm2, asthma, GERD, HTN , hyperlipidemia, l pleural effusion, chronic yeast infection, DJD, ADHD, anxiety Clinical Indicators: Hemoglobin: 8.1/7.2/7/8.3 Hematocrit: 25.4/22.9/22.2/26.6 Treatment: 1 unit PRBC's transfused In order to capture the severity of condition, please clarify the type of anemia and etiology if known: Acute blood loss anemia Acute on chronic blood loss anemia Chronic blood loss anemia Iron deficiency anemia Hemolytic anemia Drug induced anemia Anemia due to malignancy Nutritional anemia Anemia of chronic kidney disease Unable to determine Other, please specify Please document in your progress notes and discharge summary in order to capture severity of illness and risk of mortality. Include clinical findings that support your diagnosis. FYI: Press F11 to launch patient chart. [place]
[2017-05-05 11:43] LABS: Glucose,Whole Blood 148 mg/dL (75-99)
[2017-05-05 12:58] LABS: Basophils % (A) 0 %; CH 25.5; CHCM 31.6; Eosinophils # (A) 0.2 k/uL (0-0.7); Eosinophils % (A) 2 %; HCT 29.1 % (34.0-46.0); HDW 3.77; HGB 9.2 gm/dL (11.4-16.0); Hypochromasia Moderate; Luc # (Auto) 0.15; Luc % (Auto) 2; Lymphocytes # (A) 1.1 k/uL (1.0-4.8); Lymphocytes % (A) 11 %; MCH 25.6 pg (25.0-35.0); MCHC 31.7 g/dL (31.0-37.0); MCV 80.8 fL (80.0-100.0); Mean Platelet Volume 6.7; Monocytes # (A) 0.6 k/uL (0-1.0); Monocytes % (A) 6 %; Neutrophils % (A) 80 %; Poikilocytosis Slight; RDW 15.9 % (11.5-15.5); WBC (Perox) 10.45
[2017-05-05] MEDS ORDERED: MAGNESIUM HYDROXIDE 2,400 MG/10 ML CUP PO PRN (15:48)
--- NOTE | 2017-05-05 16:30 | PN ---
PROGRESS NOTE DATE OF SERVICE: 05/05/2017 This 42-year-old woman who was admitted with features renal carcinoma with probably mets is complaining of nausea at this time. The patient has anemia, after transfusion, improved. No chest pain. No palpitations. No fever. PHYSICAL EXAM: Alert, oriented times three. Pulse 89. Blood pressure 132/70, respiration 16, temperature 98.2, pulse ox 97% on room air. HEENT: Conjunctivae pale. Neck: No jugular venous distention. Cardiovascular: S1, S2. Respiratory: Breath sounds diminished in the bases. A few scattered rhonchi. Abdomen is soft. Mild diffuse distention. Nontender. No mass palpable. LEGS; No edema, no swelling. Central nervous system: No focal deficits. LABS: WBC 10, hemoglobin 9.2, glucose noted. ASSESSMENT: 1. Left renal carcinoma possibly metastatic poorly differentiated carcinoma. 2. Intractable nausea and vomiting possible acute gastritis. 3. Diabetes type 2. 4. Anemia possibly secondary to malignancy. 5. History of asthma. 6. Gastroesophageal reflux disease. 7. Hypertension. 8. History of hyperlipidemia. 9. History of pleural effusion status post left thoracocentesis, final biopsy pending. 10.Chronic yeast infection. 11.History of degenerative joint disease. 12.History ADHD. 13.History of anxiety. RECOMMENDATIONS AND DISCUSSION: 1. Recommend to continue current management and symptomatic treatment. Otherwise repeat labs. Closely monitor along with multiple consultants. Symptomatic treatment provided. Await final biopsy report. 2. Further recommendations to follow. MMODL / IJN: [id number] /
[2017-05-05 17:15] LABS: Glucose,Whole Blood 170 mg/dL (75-99)
--- NOTE | 2017-05-05 17:51 | P.PN ---
Subjective Progress Note Date: 05/05/17 Principal diagnosis: Carcinoma, metastatic Patient seen today in follow-up. Patient continues to complain of persistent, severe nausea, intermittent low back pain, she has not eaten several days because of nausea, patient's last bowel movement was 4 days ago, patient states today she feels worse than she has the entire time she's been here, she is weak. Staff confirm patient is not responding to recommendations for getting up and getting out of bed, patient will ambulate to the bathroom with a wheeled walker and standby assist otherwise, she refuses to do much other than laying in bed. Objective - Vital Signs Vital signs: Vital Signs Temp 98.1 F 05/05/17 15:55 Pulse 92 05/05/17 15:55 Resp 16 05/05/17 15:55 BP 142/81 05/05/17 15:55 Pulse Ox 91 L 05/05/17 15:55 Intake & Output 05/04/17 05/05/17 05/05/17 18:59 06:59 18:59 Intake Total 600 550 400 Balance 600 550 400 Weight 72.121 kg Intake: Intake, IV Titration 600 400 Amount Sodium Chloride 0.45% 1, 600 400 000 ml @ 50 mls/hr IV . Q20H [facility] Rx#:[id number] Oral 550 Other: Voiding Method Toilet Toilet # Voids 1 - Constitutional General appearance: Present: average body habitus, disheveled, severe distress - EENT Eyes: Present: anicteric sclerae, normal appearance ENT: Present: normal oropharynx - Respiratory Respiratory: bilateral: CTA - Cardiovascular Rhythm: regular Heart sounds: normal: S1, S2 - Peripheral edema leg Peripheral Edema: bilateral: None - Gastrointestinal Gastrointestinal Comment(s): Abdominal incision remains free of drainage, redness or swelling, edges are approximated, patient's abdomen is slightly distended, to bowel sounds noted at 1 minute. - Integumentary Integumentary: Present: pale - Neurologic Neurologic: Present: CNII-XII intact - Musculoskeletal Musculoskeletal: Present: generalized weakness - Psychiatric Psychiatric Comment(s): Patient is tearful, states hopelessness Psychiatric: Present: A&O x's 3, intact judgment & insight - Labs CBC & Chem 7: 05/05/17 12:30 05/03/17 07:30 Labs: Abnormal Lab Results - Last 24 Hours (Table) 05/04/17 05/04/17 05/05/17 Range/Units 17:34 20:22 07:29 RBC (3.80-5.40) m/uL Hgb (11.4-16.0) gm/dL Hct (34.0-46.0) % RDW (11.5-15.5) % Plt Count (150-450) k/uL Neutrophils # (1.3-7.7) k/uL POC Glucose (mg/dL) 148 H 152 H 172 H (75-99) mg/dL 05/05/17 05/05/17 05/05/17 Range/Units 11:23 12:30 17:13 RBC 3.60 L (3.80-5.40) m/uL Hgb 9.2 L (11.4-16.0) gm/dL Hct 29.1 L (34.0-46.0) % RDW 15.9 H (11.5-15.5) % Plt Count 528 H (150-450) k/uL Neutrophils # 8.0 H (1.3-7.7) k/uL POC Glucose (mg/dL) 148 H 170 H (75-99) mg/dL Assessment and Plan (1) Carcinoma Narrative/Plan: Case was discussed with the patient, family was also called in for discussion. Diagnosis of carcinoma was reviewed with the patient and her family, we discussed that the final pathology is pending review at the [facility]. Knowing the cell origin of the malignancy, renal cell versus a clear cell, is extraordinarily important in determining appropriate treatments. Pleural fluid pathology was still pending when I saw the patient and her family. At time of dictation it has been returned, malignant cells present are consistent with the carcinoma in pelvic lymph nodes. We will revisit the family regarding this metastatic carcinoma as soon as this is known. Status: Acute (2) Left renal mass Status: Acute (3) Flank pain Status: Acute (4) Anemia Status: Acute Plan: Had a long discussion with the patient and the family. Patient's performance status is in a state of rapid decline. I encouraged the patient to try to be more participatory in her care, be more active and work with the staff to find solutions to her physical complaints. I discussed with the family the importance of their presence in encouraging her, they verbalized understanding. Family is going to work on taking shifts with the patient during the day so that they can encourage her to get cleaned up in the morning, to sit in the chair, we have changed patient's diet to clear liquids in hopes that she may tolerate some sort of oral intake, cathartics have been ordered due to no bowel movement for 4 days, frequency of anti-emetic increased. We hope patient can maintain and maybe improve her performance status a little bit, will continue to follow up. Time with Patient: Greater than 30
[2017-05-05 20:18] LABS: Glucose,Whole Blood 171 mg/dL (75-99)
[2017-05-05] MEDS: SENNOSIDES-DOCUSATE SODIUM 1 EACH TAB PO SCH (22:00)
[2017-05-06] MEDS: ONDANSETRON 4 MG/2 ML VIAL IVP PRN ×4 (01:12→17:25)
[2017-05-06] MEDS: LORazepam 2 MG/ML INJ IV PRN (01:25)
[2017-05-06] MEDS: HYDROmorphone 0.5 MG/0.5 ML SYRINGE IVP PRN ×7 (01:45→22:34)
[2017-05-06] MEDS: METOCLOPRAMIDE 5 MG/ML 2 ML VIAL IVP SCH ×3 (05:21→17:34)
[2017-05-06 07:15] LABS: Glucose,Whole Blood 142 mg/dL (75-99)
[2017-05-06] MEDS: SODIUM CHLORIDE 0.45% 1,000 ML IV SCH (08:03)
[2017-05-06] MEDS: INSULIN LISPRO (humaLOG) 300 UNIT/3 ML VIAL SQ SCH ×4 (08:08→21:26)
[2017-05-06] MEDS: CITALOPRAM HYDROBROMIDE 20 MG TAB PO SCH (08:09)
[2017-05-06] MEDS: GABAPENTIN 300 MG CAP PO SCH ×2 (08:10→08:26)
[2017-05-06] MEDS: PANTOPRAZOLE 40 MG/10 ML VIAL IVP SCH ×2 (08:10→21:26)
[2017-05-06] MEDS: glipiZIDE 5 MG TAB PO SCH (08:10)
[2017-05-06] MEDS: SENNOSIDES-DOCUSATE SODIUM 1 EACH TAB PO SCH ×3 (08:10→21:26)
--- NOTE | 2017-05-06 08:58 | P.PN ---
Progress Note - Text Progress Note Date: 05/06/17 The patient is afebrile. Her main complaint is episodic nausea and vomiting. She says that this began at least one month prior to her surgery. She is tolerating some food and liquids but remains anorexic due to her nausea. She says she is passing small amounts of gas and bowel movements. Her abdominal pain is rated as a 4-5 and is aggravated by her nausea and vomiting. The final report on the left perihilar lymph nodes is consistent with high- grade poorly differentiated renal cell carcinoma. Cytology from the pleural fluid is also consistent with this. Impression: Metastatic renal cell carcinoma-1 week post left renal exploration with perihilar lymph node biopsy. Her persistent nausea and vomiting do not appear to be directly related to the surgery and other causes including chronic pancreatitis or a central cause of the nausea and vomiting like a brain metastasis should be excluded. The latter appears less likely as she had a normal brain CT on 05/01/2017.
[2017-05-06 09:23] LABS: Amylase <30 U/L (30-110)
[2017-05-06 11:46] LABS: Glucose,Whole Blood 106 mg/dL (75-99)
--- NOTE | 2017-05-06 17:07 | PN ---
PROGRESS NOTE DATE OF SERVICE: 05/06/2017 INTERVAL HISTORY: This 42-year-old woman who was admitted with a renal cell carcinoma. Also had persistent nausea, vomiting. No chest pain. No palpitations. Multifactorial etiologies is suspected. EXAM: Alert, oriented times three. Pulse 88, blood pressure 131/74, respiration 18, temperature 98.2, pulse ox 97% on 2 L. HEENT: Conjunctivae normal. Oral mucosa moist. Neck is no jugular venous distention. No carotid bruit. No lymph node enlargement. Cardiovascular system: S1, S2, no S3, no S4. Respiratory: Breath sounds diminished in the bases. ABDOMEN: Soft. Mild diffuse distention. No mass palpable. Mild diffuse tenderness. No guarding and no rigidity. Legs no edema. No swelling. Nervous system: No focal deficits. LABS: WBC 10, hemoglobin is 9.2. ASSESSMENT: 1. Left renal carcinoma possibly metastatic poorly differentiated carcinoma with METS. 2. Intractable nausea vomiting possible acute gastritis. 3. Diabetes type 2. 4. Anemia possibly secondary to malignancy. 5. History of asthma. 6. History of gastroesophageal reflux disease. 7. Hypertension. 8. Hyperlipidemia. 9. History of pleural effusion status post left thoracocentesis. 10.Chronic yeast infection. 11.History of degenerative joint disease. 12.History of ADHD. 13.History of anxiety. RECOMMENDATIONS AND DISCUSSION: Continue current medications, management and symptomatic treatment. At this time I recommend continue the symptomatic treatment. Closely follow with multiple consultants. Further recommendations to follow. Hematology-Oncology evaluation. MMODL / IJN: [id number] /
[2017-05-06 17:09] LABS: Glucose,Whole Blood 115 mg/dL (75-99)
[2017-05-06 20:12] LABS: Glucose,Whole Blood 126 mg/dL (75-99)
--- NOTE | 2017-05-06 20:45 | CONS ---
CONSULTATION DATE OF SERVICE: 05/06/2017. IDENTIFYING DATA: This patient is a 42-year-old single but engaged female, who was admitted to the oncology floor at [facility]. I am asked to consult regarding depression. HISTORY OF PRESENT ILLNESS: The patient was admitted to the hospital with severe nausea and vomiting. She has an existing diagnosis of renal cancer with suspected metastasis. It appears the patient has been unable to the eat and she has been experiencing poor motivation. She has not been ambulating as often as recommended. She has not been eating. The patient's danisha Strange is at bedside, who assists in the interview. The patient states that she feels depressed. She feels sad and hopeless. She reports that she had been talking about having abdominal discomfort and feels that she was not taken seriously for an extended period time before this diagnosis was made. They indicate that this diagnosis was made just last week. She states that she has had suicidal thoughts, but states she would not act on them. She is endorsing no thoughts of harming others. She is endorsing no symptoms of psychosis. No symptoms of hypomania or delisa. PAST PSYCHIATRIC HISTORY: No inpatient psychiatric hospitalizations. She states that she had a suicide attempt 22 years ago via medication overdose. She is currently prescribed Celexa 40 mg daily. It appears this is from her primary care physician. Other psychotropic medication trials include Lexapro, Zoloft and Cymbalta. She states she has been on the Celexa for approximately 1 to 2 months and it was started at 40 mg daily. Just prior to that, she was on Cymbalta. PAST MEDICAL HISTORY: Renal cancer as noted above, hypertension, diabetes, anemia, GERD, hyperlipidemia. ALLERGIES: MORPHINE. CHEMICAL DEPENDENCY HISTORY: No use of alcohol or illicit drugs. MENTAL STATUS EXAM: The patient is alert. She is lying in bed. She is dressed in hospital attire. She has a disheveled appearance. Her danisha Strange is at bedside holding her hand during the session. The patient intermittently makes eye contact. She appears weak, but maintains alertness. She was briefly tearful in discussing her fears regarding her prognosis. She is reporting no acute suicidal or homicidal ideation, intent or plan. There is no evidence of psychosis. There was no reported auditory or visual hallucinations or specific delusions. She does not appear hypomanic or manic. She is oriented to person, place and date. IMPRESSIONS: 1. History of major depressive disorder, anxiety unspecified, grief reaction. 2. Recent diagnosis of cancer with possible metastasis with other medical comorbidities as noted above. PLAN OF TREATMENT: The patient is experiencing a grief reaction as expected. She indicates she feels supported by her fiance. She expresses concern for her children. She is not seen to be a imminent risk for harming herself. We discussed the possibility of changing her Celexa, as we would not titrate it further. She indicates she is tired of making psychotropic medication changes. We discussed Remeron as an option, as it may help with sleep in the evening and possibly stimulate her appetite if we use a lower dose. She will give this more consideration. She does not require inpatient psychiatric hospitalization. We spent some time discussing the need for her to continue pushing forward by ambulating and engaging in her care. She expresses an understanding and these recommendations are supported by her fiance at bedside. I will continue to follow while medically admitted. RONI / PARTH: [id number] /
[2017-05-07] MEDS: METOCLOPRAMIDE 5 MG/ML 2 ML VIAL IVP SCH ×5 (01:00→23:30)
[2017-05-07] MEDS: HYDROmorphone 0.5 MG/0.5 ML SYRINGE IVP PRN ×5 (01:02→21:33)
[2017-05-07 02:15] LABS: Glucose,Whole Blood 129 mg/dL (75-99)
[2017-05-07] MEDS: ONDANSETRON 4 MG/2 ML VIAL IVP PRN ×4 (04:41→20:00)
[2017-05-07] MEDS: SODIUM CHLORIDE 0.45% 1,000 ML IV SCH (06:28)
[2017-05-07 07:17] LABS: Glucose,Whole Blood 140 mg/dL (75-99)
[2017-05-07] MEDS: glipiZIDE 5 MG TAB PO SCH (07:36)
[2017-05-07] MEDS: INSULIN LISPRO (humaLOG) 300 UNIT/3 ML VIAL SQ SCH ×4 (07:36→20:39)
[2017-05-07 09:58] LABS: Glucose,Whole Blood 117 mg/dL (75-99)
[2017-05-07] MEDS: CITALOPRAM HYDROBROMIDE 20 MG TAB PO SCH (10:11)
[2017-05-07] MEDS: PANTOPRAZOLE 40 MG/10 ML VIAL IVP SCH ×2 (10:11→20:39)
[2017-05-07] MEDS: GABAPENTIN 300 MG CAP PO SCH ×2 (10:11→10:51)
--- NOTE | 2017-05-07 10:16 | P.PN ---
Progress Note - Text Progress Note Date: 05/07/17 The patient is afebrile. She continues to have anorexia and is tolerating only small amounts of fluids and soft foods. Amylase and lipase were checked and are normal. On examination the patient has no abdominal distention and her incision appears to be healing well. Her skin lauren will be removed today. Impression: Metastatic poorly differentiated renal cell carcinoma of left kidney -post left renal exploration with biopsy of perihilar nodes. Persistent nausea and anorexia which predated the surgery Plan: If the patient does not improve as far as her oral intake it may be necessary to consider some other means of nutritional support.
[2017-05-07] MEDS: SENNOSIDES-DOCUSATE SODIUM 1 EACH TAB PO SCH ×2 (10:22→20:36)
[2017-05-07 11:47] LABS: Glucose,Whole Blood 108 mg/dL (75-99)
[2017-05-07] MEDS: LORazepam 2 MG/ML INJ IV PRN (14:24)
[2017-05-07 17:21] LABS: Glucose,Whole Blood 121 mg/dL (75-99)
--- NOTE | 2017-05-07 18:02 | PN ---
PROGRESS NOTE DATE OF SERVICE: 05/07/2017 This 42-year-old woman was admitted with renal cell carcinoma. Also suspected mets also. The patient complaining of nausea and vomiting, which could be multifactorial. No chest pain. No palpitations. No fever. EXAM: Alert, oriented x3. Pulse is 97, blood pressure 114/70, respirations 18, temperature 96.9, pulse ox 97% on 2 L. HEENT: Conjunctivae normal. NECK: No jugular venous distention. CARDIOVASCULAR: S1, S2 muffled. RESPIRATORY: Breath sounds diminished in the bases. A few rhonchi. No crackles. ABDOMEN: Soft, mild diffuse distention. LEGS: No swelling. NERVOUS SYSTEM: No focal deficits. LABS: At this time glucose 108, other labs are noted. ASSESSMENT: 1. Left renal carcinoma possibly metastatic poorly differentiated carcinoma with mets. 2. Intractable nausea and vomiting possible acute gastritis multifactorial. 3. Diabetes mellitus type 2. 4. Anemia possibly secondary to malignancy. 5. History of asthma. 6. History of gastroesophageal reflux disease. 7. Hypertension. RECOMMENDATIONS AND DISCUSSION: I recommend to continue current management and symptomatic treatment. Continue the proton inhibitors and Zofran. Closely follow with Urology and as well Hematology and Oncology. Further recommendations to follow. MMODL / IJN: [id number] /
[2017-05-07 19:55] LABS: Glucose,Whole Blood 136 mg/dL (75-99)
[2017-05-07] MEDS: HYDROcodone/APAP 5-325MG 1 EACH TAB PO PRN (20:06)
[2017-05-08] MEDS: HYDROmorphone 0.5 MG/0.5 ML SYRINGE IVP PRN ×9 (00:20→23:50)
[2017-05-08] MEDS: ONDANSETRON 4 MG/2 ML VIAL IVP PRN ×3 (01:42→21:13)
[2017-05-08] MEDS: SODIUM CHLORIDE 0.45% 1,000 ML IV SCH ×2 (04:49→16:34)
[2017-05-08] MEDS: METOCLOPRAMIDE 5 MG/ML 2 ML VIAL IVP SCH ×4 (06:53→23:11)
[2017-05-08 07:38] LABS: Glucose,Whole Blood 174 mg/dL (75-99)
[2017-05-08] MEDS: CITALOPRAM HYDROBROMIDE 20 MG TAB PO SCH (08:17)
[2017-05-08] MEDS: INSULIN LISPRO (humaLOG) 300 UNIT/3 ML VIAL SQ SCH ×4 (08:17→21:13)
[2017-05-08] MEDS: PANTOPRAZOLE 40 MG/10 ML VIAL IVP SCH ×2 (08:17→21:14)
[2017-05-08] MEDS: GABAPENTIN 300 MG CAP PO SCH ×2 (08:17→08:28)
[2017-05-08] MEDS: glipiZIDE 5 MG TAB PO SCH (08:18)
[2017-05-08] MEDS: SENNOSIDES-DOCUSATE SODIUM 1 EACH TAB PO SCH ×2 (08:27→21:26)
[2017-05-08] MEDS: DRONABINOL 2.5 MG CAP PO SCH ×2 (09:44→17:49)
[2017-05-08 11:13] LABS: Glucose,Whole Blood 101 mg/dL (75-99)
--- NOTE | 2017-05-08 12:20 | PN ---
PROGRESS NOTE DATE OF SERVICE: 05/08/2017 This 42-year-old woman was admitted with features of metastatic renal carcinoma, is being closely monitored. Patient is not nauseous. Dr. Spivey is following the patient closely. The patient had metastatic renal cell carcinoma. No fever. No cough. Nausea noted. PHYSICAL EXAM: Alert and oriented x3. Pulse 79, blood pressure 114/72, respirations 16, temperature 98.1, pulse ox 94% room air. HEENT: Conjunctivae normal. NECK: No jugular venous distention. CARDIOVASCULAR: S1, S2 muffled. RESPIRATORY: Breath sounds diminished at the basis, a few scattered rhonchi. No crackles. Abdomen is soft, nontender. LEGS: No edema. NERVOUS SYSTEM: No focal deficits. LABS: Glucose 174. ASSESSMENT: 1. Left renal carcinoma with possible metastasis with poorly differentiated carcinoma with mets. 2. Intractable nausea, vomiting, possible acute gastritis, multifactorial. 3. Diabetes mellitus type 2. 4. Anemia, possibly secondary to malignancy. 5. History of asthma. 6. History of gastroesophageal reflux disease. 7. Hypertension. RECOMMENDATION: Recommend to continue current management. Continue with with symptomatic treatment, otherwise. Closely follow with Dr. Spivey regarding the management of the metastatic malignancy. Guarded prognosis, further recommendations to follow. MMODL / IJN: [id number] /
--- NOTE | 2017-05-08 13:16 | P.PN ---
Subjective Progress Note Date: 05/08/17 Principal diagnosis: Carcinoma, metastatic Patient seen today in follow-up. Nausea still is persistent and uncontrolled. She continues to struggle oral intake, it is stated that the pt has diarrhea though there is no documentation of a BM since the . Pt sister was at bedside. Psychiatry was consulted but pt refused medication changes. Pt c/o, nausea, weakness. Family was counseled on the importance of involvement in getting pt motivated and to try and work on communicating with staff better to find remedies to physical c/o. Pt continues to mostly lay in bed. Objective - Vital Signs Vital signs: Vital Signs Temp 98.1 F 05/08/17 08:17 Pulse 79 05/08/17 08:17 Resp 16 05/08/17 08:17 BP 114/72 05/08/17 08:17 Pulse Ox 96 05/08/17 09:08 Intake & Output 05/07/17 05/08/17 05/08/17 18:59 06:59 18:59 Intake Total 940 990 Balance 940 990 Intake: IV 400 Sodium Chloride 0.45% 1, 400 000 ml @ 50 mls/hr IV . Q20H [facility] Rx#:[id number] Intake, IV Titration 400 Amount Sodium Chloride 0.45% 1, 400 000 ml @ 50 mls/hr IV . Q20H [facility] Rx#:[id number] Oral 540 590 Other: Voiding Method Toilet Toilet Toilet # Voids 3 1 - Constitutional General appearance: Present: disheveled, severe distress - Respiratory Respiratory: bilateral: CTA, diminished (bases) - Cardiovascular Heart sounds: normal: S1, S2 - Gastrointestinal Gastrointestinal Comment(s): abd incision no s/s infection, healing well General gastrointestinal: Present: normal bowel sounds, soft - Integumentary Integumentary: Present: pale - Neurologic Neurologic: Present: CNII-XII intact - Musculoskeletal Musculoskeletal: Present: generalized weakness - Psychiatric Psychiatric Comment(s): constantly on the verge of tears, any discussion regarding cancer pt grabs for emesis basin and wretches, no vomiting witnessed Psychiatric: Present: A&O x's 3 - Labs CBC & Chem 7: 05/05/17 12:30 05/03/17 07:30 Labs: Abnormal Lab Results - Last 24 Hours (Table) 05/07/17 05/07/1705/08/17 Range/Units 17:20 19:51 07:27 POC Glucose (mg/dL) 121 H 136 H 174 H (75-99) mg/dL 05/08/17 Range/Units 11:11 POC Glucose (mg/dL) 101 H (75-99) mg/dL Assessment and Plan (1) Left renal mass Status: Acute (2) Flank pain Narrative/Plan: Pt continues on pain meds, after review of the MAR pt does not appear to be requiring a lot of pain medication, would recommend tapering and converting to oral in anticipation of discharge. Status: Acute (3) Anemia Status: Acute (4) Renal cell adenocarcinoma Narrative/Plan: Diagnosis confirmed with [facility] pathologist. This is an aggressive, poorly differentiated malignancy. Treatment with targeted TKI therapy is the standard of care with oral pazopanib. Medication will be ordered from specialty pharmacy with plan to begin therapy LISA. Pt and sister's questions were answered. Status: Acute (5) Nausea & vomiting Narrative/Plan: Persistent. Have requested EGD for evaluation, will await findings. Pt is on aggressive nausea prevention regimen, marinol has been added. Status: Acute Plan: Patient's performance status is still in question, reiterated with pt and her sister the importance of working with staff for solutions to physical c/o, getting out bed and getting moving, we will continue to follow. PT/OT ordered
--- NOTE | 2017-05-08 15:26 | P.PN ---
Progress Note - Text Progress Note Date: 05/08/17 The patient remains afebrile and relatively comfortable. Unfortunately she continues to have intermittent nausea with a very poor appetite. She says that EGD is planned tomorrow for further evaluation. The patient's skin lauren will be removed later today.
[2017-05-08 17:17] LABS: Glucose,Whole Blood 150 mg/dL (75-99)
--- NOTE | 2017-05-08 20:12 | CONS ---
CONSULTATION DATE OF CONSULTATION: 05/08/17. REQUESTING PHYSICIAN: Dr. Spivey and Dr. Hobbs. REASON FOR CONSULTATION: Nausea, vomiting, recently diagnosed metastatic carcinoma. HISTORY OF PRESENT ILLNESS: The patient is a 42-year-old white female admitted to the hospital with flank pain. Subsequently underwent surgery by Dr. Hobbs and was noted to have metastatic carcinoma of unknown primary. Subsequently, she was diagnosed with pleural effusion. Pleural fluid analysis revealed metastatic carcinoma. The patient has been having left-sided flank pain for the last three months duration. Initially was treated with antibiotics for possible infectious etiology. Because of persistent symptoms, she was scheduled for surgery on an outpatient basis. The reason we are consulted is because of ongoing persistent nausea, vomiting for the last several days duration. The patient complains of epigastric discomfort. Has decreased appetite. Not been able to eat and several episodes of nausea vomiting despite being on different antiemetics over the last few days. She is very sleepy during the interview. Most of the history was obtained from the patient's family who is at the bedside. There is no evidence of coffee-grounds emesis. No prior history of peptic ulcer disease. No recent NSAID use. PAST MEDICAL HISTORY: Was significant for diabetes mellitus, asthma, hypertension, hyperlipidemia, osteoarthritis, hypothyroidism. PAST SURGICAL HISTORY: 1. Umbilical hernia repair. 2. Hemorrhoid surgery. 3. . 4. Adenoidectomy. 5. Cholecystectomy. 6. Tonsillectomy. 7. Uterine ablation. MEDICATIONS: At home include: 1. Glucotrol. 2. . 3. Neurontin. 4. Rocephin. 5. Ultram. 6. Celexa. FAMILY HISTORY: Mother had Alzheimer's. Father had some cancer. Sister had DVT and some cancer. REVIEW OF SYSTEMS: Could not be obtained as the patient is quite sleepy during the interview. PHYSICAL EXAMINATION: Vital signs are stable. Blood pressure 114/72, pulse is 79, Temperature 98, HEENT examination unremarkable. Conjunctivae pink. Sclerae anicteric. Oral cavity no lesions. Neck: No JVD or lymph node enlargement. Chest was clear to auscultation. HEART: Regular rate and rhythm. Abdomen is slightly tender in the epigastric area, slightly distended. No organomegaly. Extremities: No pedal edema. Skin no rashes. Neuro: She is very sleepy during the interview. LABS: Labs done today. Labs on May 05, WBC 10, hemoglobin 9.2, platelets of 528. Lipase is normal. IMPRESSION: This lady was recently diagnosed with metastatic carcinoma getting explorative during surgery for possible nephrectomy and pleural effusion, was also positive for malignancy. She underwent left renal exploration and was noted to have perihilar lymph nodes that were positive for poorly differentiated carcinoma. Oncology has been consulted and Dr. Spivey following the patient closely. Since being hospitalized she is having significant episodes of nausea, vomiting with epigastric discomfort and unable to maintain any oral nutrition. The most she ate earlier today was one small can of Ensure. She does have a longstanding history of diabetes mellitus. RECOMMENDATIONS: We will proceed with upper endoscopy tomorrow. In the meantime, continue with IV proton pump inhibitors as well as antiemetics as needed. Further recommendations will follow. Thank you for this consultation. RONI / PARTH: [id number] /
[2017-05-08 20:46] LABS: Glucose,Whole Blood 190 mg/dL (75-99)
--- NOTE | 2017-05-08 22:35 | P.PN ---
Progress Note - Text Progress Note Date: 05/08/17 Vital Signs Temp 98.0 F 05/08/17 15:35 Pulse 81 05/08/17 15:35 Resp 18 05/08/17 15:35 BP 126/83 05/08/17 15:35 Pulse Ox 95 05/08/17 15:35 Interval History: Patient interviewed at bedside, discussed addition of new medication, patient is still ambivalent about this. Patient remains quite depressed. She continues to struggle with nausea. At present, patient denies SI/HI/AVH. Mental Status Exam: Appearance: drowsy, appears frail, disheveled , appears older chronological age Behavior: no PMA, no PMR, no abnormal movements, Attitude: cooperative Speech: rate: slightly slow, rhythm: normal, fluency: normal, articulation : normal , volume: soft , prosody: normal; primary language: Togolese Mood: depressed Affect: constricted Insight: fair Judgment: fair Plan: * continue Celexa 40-mg PO QAM * * Remeron 15-mg PO QHS ordered; patient may refuse this but the offer is at least there for her to take it if she desires * * patient does not meet criteria for mental health admission * * Psychiatry will follow
[2017-05-09] MEDS: ONDANSETRON 4 MG/2 ML VIAL IVP PRN ×3 (01:31→14:24)
[2017-05-09] MEDS: LORazepam 2 MG/ML INJ IV PRN (01:33)
[2017-05-09] MEDS: HYDROcodone/APAP 5-325MG 1 EACH TAB PO PRN ×4 (01:45→16:43)
[2017-05-09] MEDS: METOCLOPRAMIDE 5 MG/ML 2 ML VIAL IVP SCH ×4 (05:12→23:04)
[2017-05-09 06:59] LABS: Glucose,Whole Blood 154 mg/dL (75-99)
[2017-05-09] MEDS ORDERED: PROPOFOL 10 MG/ML 20 ML VIAL IV ONE (07:20)
[2017-05-09] MEDS ORDERED: IV FLUID CONTINUATION 1,000 ML IV ONE (07:28)
--- NOTE | 2017-05-09 07:45 | P.PCN ---
Date of Procedure: 05/09/17 Procedure(s) Performed: BRIEF HISTORY: Patient is a 42-year-old, pleasant, white female, scheduled for an upper endoscopy as a part of evaluation of persistent nausea vomiting for the last several days duration. She was recently diagnosed with metastatic carcinoma at the time of exploratory surgery for possible kidney neoplasm. She' s been on proton pump inhibitors as well as antiemetics with no relief in her symptoms. PROCEDURE PERFORMED: Esophagogastroduodenoscopy with biopsy. PREOPERATIVE DIAGNOSIS: Abdominal pain, persistent nausea and vomiting. IV sedation per anesthesia. PROCEDURE: After informed consent was obtained, the patient was brought into the endoscopy unit. IV sedation was administered by Anesthesia under continuous monitoring. Initially the Olympus GIF-140 video endoscope was inserted into the mouth. Esophagus intubated without any difficulty. It was gradually advanced into the stomach and duodenum and carefully examined. The bulb and the second part of the duodenum appeared normal. The scope at this time was withdrawn to the stomach, adequately insufflated with air, and upon careful examination, mucosa of the antrum had scattered erosions and biopsies were done from this area. The body, cardia and the fundus appeared normal. The scope was then withdrawn into the esophagus. The GE junction was located at 39 cm from the incisors. The esophagus appeared normal. There were no erosions or ulcerations seen and the patient tolerated the procedure well. IMPRESSION: 1. Antral erosive gastritis. 2. No evidence of esophagitis, gastric outlet obstruction. RECOMMENDATIONS: The findings of this examination were discussed with the patient . At this time will await the biopsy results. Continue with symptomatic treatment with antiemetics and proton pump inhibitors..
[2017-05-09] MEDS: glipiZIDE 5 MG TAB PO SCH (08:39)
[2017-05-09] MEDS: CITALOPRAM HYDROBROMIDE 20 MG TAB PO SCH (08:39)
[2017-05-09] MEDS: DRONABINOL 2.5 MG CAP PO SCH ×2 (08:39→16:46)
[2017-05-09] MEDS: PANTOPRAZOLE 40 MG/10 ML VIAL IVP SCH ×2 (08:40→21:27)
[2017-05-09] MEDS: INSULIN LISPRO (humaLOG) 300 UNIT/3 ML VIAL SQ SCH ×4 (08:40→21:28)
[2017-05-09] MEDS: GABAPENTIN 300 MG CAP PO SCH (08:41)
[2017-05-09] MEDS: SENNOSIDES-DOCUSATE SODIUM 1 EACH TAB PO SCH ×2 (08:41→22:34)
--- NOTE | 2017-05-09 11:24 | P.PN ---
Subjective Patient with history of renal cell carcinoma appears to have been admitted for nausea vomiting secondary to gastritis patient is on a proton burning been elevated and patient's symptoms appear to have been controlled today. Constitutional: Denied any fatigue denied any fever. Cardio vascular: denied any chest pain, palpitations Gastrointestinal denied any nausea vomiting Pulmonary: Denied any shortness of breath cough Neurologic denied any new focal deficits Objective - Vital Signs Vital signs: Vital Signs Temp 98.0 F 05/09/17 07:29 Pulse 80 05/09/17 07:29 Resp 16 05/09/17 07:29 BP 125/76 05/09/17 07:29 Pulse Ox 94 L 05/09/17 07:41 Intake & Output 05/08/17 05/09/17 05/09/17 18:59 06:59 18:59 Intake Total 575 100 Balance 575 100 Weight 72.121 kg Intake: IV 575 100 Sodium Chloride 0.45% 1, 575 000 ml @ 50 mls/hr IV . Q20H [facility] Rx#:[id number] Other: Voiding Method Toilet Toilet # Voids 2 1 - Exam PHYSICAL EXAMINATION: GENERAL: The patient is alert and oriented x3, not in any acute distress. Well developed, well nourished. HEENT: Pupils are round and equally reacting to light. EOMI. No scleral icterus. No conjunctival pallor. Normocephalic, atraumatic. No pharyngeal erythema. No thyromegaly. CARDIOVASCULAR: S1 and S2 present. No murmurs, rubs, or gallops. PULMONARY: Chest is clear to auscultation, no wheezing or crackles. ABDOMEN: Soft, nontender, nondistended, normoactive bowel sounds. No palpable organomegaly. MUSCULOSKELETAL: No joint swelling or deformity. EXTREMITIES: No cyanosis, clubbing, or pedal edema. NEUROLOGICAL: Gross neurological examination did not reveal any focal deficits. SKIN: No rashes. - Labs CBC & Chem 7: 05/05/17 12:30 05/03/17 07:30 Labs: Abnormal Lab Results - Last 24 Hours (Table) 05/08/17 05/08/17 05/09/17 Range/Units 17:13 20:44 06:57 POC Glucose (mg/dL) 150 H 190 H 154 H (75-99) mg/dL Assessment and Plan Plan: #1 left lesion carcinoma with possible metastasis and metastasis: Being followed by oncology. #2 intractable nausea secondary to acute gastritis improved symptoms. #3 type 2 diabetes mellitus. #4 anemia and anemia of chronic disease secondary to malignancy #5 history of asthma not in acute exacerbation #6 hypertension. Patient the nausea appears to have improved patient okay to discharge from medicine perspective.
[2017-05-09 11:29] LABS: Glucose,Whole Blood 97 mg/dL (75-99)
[2017-05-09] MEDS: HYDROmorphone 0.5 MG/0.5 ML SYRINGE IVP PRN ×4 (11:39→22:49)
[2017-05-09] MEDS: SODIUM CHLORIDE 0.45% 1,000 ML IV SCH (12:13)
--- NOTE | 2017-05-09 12:44 | P.PN ---
Subjective The weekends events have been reviewed. She still states that she is nauseated. She is on medicine for this. I will have social work aid in home placement. Oncology is a plan for oral treatment. She is on oral pain medicine , antiemetics. Hopefully we can get a discharge plan in the next 24-48 hours. Objective - Vital Signs Vital signs: Vital Signs Temp 98.0 F 05/09/17 07:29 Pulse 80 05/09/17 07:29 Resp 16 05/09/17 07:29 BP 125/76 05/09/17 07:29 Pulse Ox 94 L 05/09/17 07:41 Intake & Output 05/08/17 05/09/17 05/09/17 18:59 06:59 18:59 Intake Total 575 100 Balance 575 100 Weight 72.121 kg Intake: IV 575 100 Sodium Chloride 0.45% 1, 575 000 ml @ 50 mls/hr IV . Q20H [facility] Rx#:[id number] Other: Voiding Method Toilet Toilet # Voids 2 1 - Labs CBC & Chem 7: 05/05/17 12:30 05/03/17 07:30 Labs: Abnormal Lab Results - Last 24 Hours (Table) 05/08/17 05/08/17 05/09/17 Range/Units 17:13 20:44 06:57 POC Glucose (mg/dL) 150 H 190 H 154 H (75-99) mg/dL
[2017-05-09 17:14] LABS: Glucose,Whole Blood 138 mg/dL (75-99)
[2017-05-09] MEDS ORDERED: MIRTAZAPINE 15 MG TAB PO SCH (21:00)
[2017-05-09 21:15] LABS: Glucose,Whole Blood 143 mg/dL (75-99)
[2017-05-10] MEDS: ONDANSETRON 4 MG/2 ML VIAL IVP PRN ×4 (02:56→17:29)
[2017-05-10] MEDS: HYDROmorphone 0.5 MG/0.5 ML SYRINGE IVP PRN (03:02)
[2017-05-10] MEDS: HYDROcodone/APAP 5-325MG 1 EACH TAB PO PRN ×4 (04:17→18:31)
[2017-05-10] MEDS: METOCLOPRAMIDE 5 MG/ML 2 ML VIAL IVP SCH ×3 (05:35→18:07)
[2017-05-10 07:00] LABS: Glucose,Whole Blood 148 mg/dL (75-99)
[2017-05-10 07:28] VITALS: RESP 18; TEMP 97.9
[2017-05-10] MEDS: SODIUM CHLORIDE 0.45% 1,000 ML IV SCH (08:07)
[2017-05-10] MEDS: INSULIN LISPRO (humaLOG) 300 UNIT/3 ML VIAL SQ SCH ×3 (08:08→18:07)
[2017-05-10] MEDS: PANTOPRAZOLE 40 MG/10 ML VIAL IVP SCH (08:08)
[2017-05-10] MEDS: CITALOPRAM HYDROBROMIDE 20 MG TAB PO SCH (08:19)
[2017-05-10] MEDS: glipiZIDE 5 MG TAB PO SCH (08:19)
[2017-05-10] MEDS: GABAPENTIN 300 MG CAP PO SCH (08:45)
[2017-05-10] MEDS: SENNOSIDES-DOCUSATE SODIUM 1 EACH TAB PO SCH (08:45)
[2017-05-10] MEDS: DRONABINOL 2.5 MG CAP PO SCH ×2 (08:51→17:29)
[2017-05-10] MEDS ORDERED: SCOPOLAMINE 1.5MG/72HR PATCH TRANSDERM SCH (09:00)
--- NOTE | 2017-05-10 09:29 | P.PN ---
Subjective Progress Note Date: 05/10/17 Principal diagnosis: renal cell carcinoma nausea vomiting Status post EGD for erosive gastritis. Reports nausea this morning. Objective - Vital Signs Vital signs: Vital Signs Temp 97.9 F 05/10/17 07:28 Pulse 80 05/10/17 07:28 Resp 18 05/10/17 07:28 BP 124/80 05/10/17 07:28 Pulse Ox 97 05/10/17 07:28 Intake & Output 05/09/17 05/10/17 05/10/17 18:59 06:59 18:59 Intake Total 500 550 Balance 500 550 Weight 72.121 kg Intake: IV 500 550 Sodium Chloride 0.45% 1, 400 550 000 ml @ 50 mls/hr IV . Q20H [facility] Rx#:[id number] Other: Voiding Method Toilet # Voids 2 - Exam General appearance: The patient is alert, oriented, in no acute distress. HET: Head is normocephalic and atraumatic. Pupils are equal and reactive. Oropharynx is clear without lesions. Neck: Supple without lymphadenopathy. Trachea midline. Heart: S1 S2. Regular rate and rhythm. Lungs: No crackles or wheezes are heard. Abdomen: Soft, nontender, nondistended with bowel sounds. No peritoneal signs. No palpable organomegaly or masses. Extremities: Normal skin color and turgor. No cyanosis, rash, ulceration, clubbing, or edema. Radial and pedal pulses are 2/4 bilaterally. Neurological: No focal deficits. Strength and sensation are grossly intact. - Labs CBC & Chem 7: 05/05/17 12:30 05/03/17 07:30 Labs: Abnormal Lab Results - Last 24 Hours (Table) 05/09/17 05/09/17 05/10/17 Range/Units 17:12 21:14 06:57 POC Glucose (mg/dL) 138 H 143 H 148 H (75-99) mg/dL Assessment and Plan (1) Nausea & vomiting Narrative/Plan: Gastritis possible medication related Status: Acute (2) Renal cell adenocarcinoma Status: Acute Plan: 1. Scopolamine patch. Discharge per medicine and oncology. We'll follow as needed. Assessment and plan a care discussed with Dr. Chirinos
--- NOTE | 2017-05-10 11:01 | P.DS ---
Providers Date of admission: 04/28/17 11:09 Attending physician: Anthony Hobbs Consults: 05/01/17 07:43 Consult Physician Routine Consulting Provider: Keshawn Spivey Consult Reason/Comments: Metastatic carcinoma, probable renal cell pathology pending Do you want consulting provider notified?: Yes 05/03/17 12:12 Consult Physician Routine Consulting Provider: Kasey Childress Consult Reason/Comments: Medical Mgmt. Do you want consulting provider notified?: Yes 05/05/17 15:49 Consult Physician Routine Consulting Provider: Roman Siddiqui Consult Reason/Comments: depression Do you want consulting provider notified?: Already Contacted Primary care physician: Stated None Hospital Course: This 42-year-old female was admitted the hospital 04/28/2017 for exploration of her left kidney mass. She had presented to our office in 6-8 weeks prior with what appeared to be either a renal abscess or a serious pyelonephritis. She was in the hospital prior to this admission with pain. 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 The mass was big and did not respond antibiotics. At the initial CAT scan the mass was already outside the kidney. We elected to remove the kidney as we felt that if this was infected and needed to come out. She was explored on 04/28/2017. During the intraoperative exploration it became very evident that this was not an infectious but a malignant process. Multiple biopsies were done outside the kidney and frozen sections came back poorly differentiated carcinoma. Due to the significant involvement of tumor in the left upper quadrant was quite concerned that proceeding with surgical removal would cause her serious harm as it was adherent to everything around the kidney. The patient was closed. Patient and her family were informed of the clinical situation. Permanent sections came back poorly differentiated renal cell carcinoma. The postoperative period was quite protracted due to pain and nausea. She also had shortness of breath. She was seen in consultation by oncology, . On 05/01. It became evident on the evaluation that they ordered there was a pleural effusion as well as hilar and paratracheal nodes. On 05/03/2017 the pleural effusion was tapped and cytology came back metastatic carcinoma pleural effusion. Dr. Childress of medicine was asked to assist in her perioperative care. Dr. Martinez of psychiatry was asked to see for depression and anxiety. He is counseled as noted. Because of persistent nausea Dr. Chirinos of GI medicine was asked to see the patient. An EGD was done on 05/09 2017 which identified erosive gastritis. Her pain has finally been controlled on a fentanyl patch when he 5 g per hour, Marinol 2.5 mg before meals twice a day. Her nausea has required multiple medications including scopolamine Zofran protonic's and Reglan. She'll be discharged on all his medications as well as some [place] for breakthrough pain. Her wound is healed and her lauren have been removed. She is ambulating and eating limited amounts. She will get oral pazopanib chemotherapy from 's office. I will see her in 1 week to reassess her wound. Her condition at present is stable, her overall prognosis unfortunately is poor. This has been explained to the family who are at her bedside assisting her. Patient Condition at Discharge: Stable Plan - Discharge Summary New Discharge Prescriptions: New fentaNYL 25MCG/HR PATCH [Duragesic 25MCG/HR] 1 patch TRANSDERM Q72H #10 patch Dronabinol [Marinol] 2.5 mg PO AC-BID #60 capsule Scopolamine 1.5MG/72Hr Patch [TransDerm Scop] 1 patch TRANSDERM Q72H #10 patch Metoclopramide [Reglan] 10 mg PO ACHS #120 tab Ondansetron [Zofran] 4 mg PO Q8HR PRN #90 tab PRN Reason: Nausea Pantoprazole [Protonix] 40 mg PO AC-BID #60 tablet. HYDROcodone/APAP 5-325MG [[place] 5-325] 1 tab PO Q4HR PRN #60 tab PRN Reason: Breakthrough Pain No Action Gabapentin [Neurontin] 600 mg PO DAILY Citalopram Hydrobromide [CeleXA] 40 mg PO DAILY Ketotifen Fumarate [Alaway] 1 drop BOTH EYES DAILY PRN PRN Reason: Itching glipiZIDE [Glucotrol] 5 mg PO DAILY cefTRIAXone [Rocephin] 2,000 mg IVPB Q24HR #30 vial traMADol HCl [Ultram] 50 mg PO Q4-6H PRN PRN Reason: Pain Discharge Medication List Citalopram Hydrobromide [CeleXA] 40 mg PO DAILY 02/05/17 [History] Gabapentin [Neurontin] 600 mg PO DAILY 02/05/17 [History] Ketotifen Fumarate [Alaway] 1 drop BOTH EYES DAILY PRN 02/05/17 [History] glipiZIDE [Glucotrol] 5 mg PO DAILY 03/17/17 [History] cefTRIAXone [Rocephin] 2,000 mg IVPB Q24HR #30 vial 03/22/17 [Rx] traMADol HCl [Ultram] 50 mg PO Q4-6H PRN 04/21/17 [History] Dronabinol [Marinol] 2.5 mg PO AC-BID #60 capsule 05/10/17 [Rx] HYDROcodone/APAP 5-325MG [[place] 5-325] 1 tab PO Q4HR PRN #60 tab 05/10/17 [Rx] Metoclopramide [Reglan] 10 mg PO ACHS #120 tab 05/10/17 [Rx] Ondansetron [Zofran] 4 mg PO Q8HR PRN #90 tab 05/10/17 [Rx] Pantoprazole [Protonix] 40 mg PO AC-BID #60 tablet. 05/10/17 [Rx] Scopolamine 1.5MG/72Hr Patch [TransDerm Scop] 1 patch TRANSDERM Q72H #10 patch 05/10/17 [Rx] fentaNYL 25MCG/HR PATCH [Duragesic 25MCG/HR] 1 patch TRANSDERM Q72H #10 patch [Rx] Follow up Appointment(s)/Referral(s): Anthony Hobbs MD [STAFF PHYSICIAN] - 1 Week Activity/Diet/Wound Care/Special Instructions: The patient should have a follow-up with Dr. Spivey of oncology. They have arranged for her oral chemotherapy. Discharge Disposition: HOME WITH HOME HEALTH SERVICES
[2017-05-10 11:28] LABS: Glucose,Whole Blood 101 mg/dL (75-99)
[2017-05-10] MEDS: LORazepam 2 MG/ML INJ IV PRN (11:52)
[2017-05-10 12:52] VITALS: BP 158/69; PULSE 94
[2017-05-10 17:37] LABS: Glucose,Whole Blood 126 mg/dL (75-99)
--- NOTE | 2017-05-10 18:38 | P.PN ---
Subjective Progress Note Date: 05/10/17 Principal diagnosis: renal cell Carcinoma, metastatic patient seen in follow-up, she is beginning to look better, pain in the back and abdomenis better controlled, nausea still continues to be a problem, patient did have EGD with gastritis noted, patient is going to try scopolamine today. In the past 48 hours patient has ate mashed potatoes, soups and is drinking more fluids, no documented emesis. Pt was while inpatient yesterday and was walking the hallway. Objective - Vital Signs Vital signs: Vital Signs Temp 97.9 F 05/10/17 07:28 Pulse 94 05/10/17 12:51 Resp 18 05/10/17 07:28 BP 158/69 05/10/17 12:51 Pulse Ox 97 05/10/17 12:51 Intake & Output 05/09/17 05/10/17 05/10/17 18:59 06:59 18:59 Intake Total 500 550 Balance 500 550 Weight 72.121 kg Intake: IV 500 550 Sodium Chloride 0.45% 1, 400 550 000 ml @ 50 mls/hr IV . Q20H [facility] Rx#:[id number] Other: Voiding Method Toilet Toilet # Voids 2 2 - Constitutional General appearance: Present: average body habitus, cooperative, mild distress - EENT Eyes: Present: normal appearance - Respiratory Respiratory: bilateral: CTA - Cardiovascular Heart sounds: normal: S1, S2 - Gastrointestinal General gastrointestinal: Present: soft, tenderness - Integumentary Integumentary: Present: pale - Neurologic Neurologic: Present: CNII-XII intact - Musculoskeletal Musculoskeletal: Present: generalized weakness - Psychiatric Psychiatric Comment(s): continues to be tearful but less apathetic today and seems to be motivated to get going with treatment - Labs CBC & Chem 7: 05/05/17 12:30 05/03/17 07:30 Labs: Abnormal Lab Results - Last 24 Hours (Table) 05/09/17 05/10/17 05/10/17 Range/Units 21:14 06:57 11:16 POC Glucose (mg/dL) 143 H 148 H 101 H (75-99) mg/dL 05/10/17 Range/Units 17:18 POC Glucose (mg/dL) 126 H (75-99) mg/dL Assessment and Plan (1) Left renal mass Narrative/Plan: Final path diagnosis renal cell carcinoma. Status: Acute (2) Flank pain Narrative/Plan: Patient now on fentanyl and Brea with decent results. Patient declined consult with pain management, she is satisfied with pain control Status: Acute (3) Anemia Status: Acute (4) Renal cell adenocarcinoma Narrative/Plan: metastatic disease. Votrient has been requested from specialty, currently working on co-pay assistants. Patient will be contacted for delivery of oral drug at home. patient will be scheduled for oral oncolytic education and treatment follow up. Status: Acute (5) Nausea & vomiting Narrative/Plan: S/P EGD, biopsies pending, multiple antiemetic agents ordered, no vomiting for 48 or more hours now. Status: Acute Plan: Pt okay from hematology/oncology standpoint to be discharged to home. Plans for follow-up in the outpatient setting will be scheduled and communicated to patient. She did verbalize understanding this.
--- NOTE | 2017-05-11 01:38 | P.PN ---
Subjective Progress Note Date: 05/10/17 Principal diagnosis: Nausea vomiting Patient with history of renal cell carcinoma , admitted for nausea vomiting secondary to gastritis patient is on a proton burning been elevated and patient' s symptoms appear to have been controlled today. An EGD was done on 05/09 2017 which identified erosive gastritis. Patient is tolerating diet slowly. patient is being discharged home today. Constitutional: Denied any fatigue denied any fever. Cardio vascular: denied any chest pain, palpitations Gastrointestinal denied any nausea vomiting Pulmonary: Denied any shortness of breath cough Neurologic denied any new focal deficits Current medications reviewed Objective - Vital Signs Vital signs: Vital Signs Temp 97.9 F 05/10/17 07:28 Pulse 94 05/10/17 12:51 Resp 18 05/10/17 07:28 BP 158/69 05/10/17 12:51 Pulse Ox 97 05/10/17 12:51 Intake & Output 05/10/17 05/10/17 05/11/17 06:59 18:59 06:59 Intake Total 550 Balance 550 Weight 72.121 kg Intake: IV 550 Sodium Chloride 0.45% 1, 550 000 ml @ 50 mls/hr IV . Q20H [facility] Rx#:[id number] Other: Voiding Method Toilet Toilet # Voids 2 2 - Exam GENERAL: The patient is alert and oriented x3, not in any acute distress. Well developed, well nourished. HEENT: Pupils are round and equally reacting to light. EOMI. No scleral icterus. No conjunctival pallor. Normocephalic, atraumatic. No pharyngeal erythema. No thyromegaly. CARDIOVASCULAR: S1 and S2 present. No murmurs, rubs, or gallops. PULMONARY: Chest is clear to auscultation, no wheezing or crackles. ABDOMEN: Soft, nontender, nondistended, normoactive bowel sounds. No palpable organomegaly. MUSCULOSKELETAL: No joint swelling or deformity. EXTREMITIES: No cyanosis, clubbing, or pedal edema. NEUROLOGICAL: Gross neurological examination did not reveal any focal deficits. SKIN: No rashes. - Labs CBC & Chem 7: 05/05/17 12:30 05/03/17 07:30 Labs: Abnormal Lab Results - Last 24 Hours (Table) 05/10/17 05/10/17 05/10/17 Range/Units 06:57 11:16 17:18 POC Glucose (mg/dL) 148 H 101 H 126 H (75-99) mg/dL Assessment and Plan Plan: #1 renal cell carcinoma with possible metastasis and metastasis: Being followed by oncology. #2 intractable nausea secondary to acute gastritis improved symptoms. #3 type 2 diabetes mellitus. #4 anemia and anemia of chronic disease secondary to malignancy #5 history of asthma not in acute exacerbation #6 hypertension. Patient the nausea appears to have improved patient okay to discharge from medicine perspective.
== END 2017-05-10 19:37 | disposition home health service (06) | DRG 674 ==
LOC: 2ORMAIN 11:09 → 5ONC 16:29
PROVIDERS: ADMIT Urology; ATTEND Urology
PROC: 07BD0ZX Excision of Aortic Lymphatic, Open Approach, Diagnostic (ICD-10-PCS; 2017-04-28)
PROC: 07BC0ZX Excision of Pelvis Lymphatic, Open Approach, Diagnostic (ICD-10-PCS; 2017-04-28)
PROC: 0WJG0ZZ Inspection of Peritoneal Cavity, Open Approach (ICD-10-PCS; principal; 2017-04-28 12:30)
PROC: 30240N1 Transfusion of Nonautologous Red Blood Cells into Central Vein, Open Approach (ICD-10-PCS; 2017-05-02)
PROC: 0W9B3ZX Drainage of Left Pleural Cavity, Percutaneous Approach, Diagnostic (ICD-10-PCS; 2017-05-03)
PROC: 0DB78ZX Excision of Stomach, Pylorus, Via Natural or Artificial Opening Endoscopic, Diagnostic (ICD-10-PCS; 2017-05-09)
DX: C64.2 Malignant neoplasm of left kidney, except renal pelvis (principal); C77.2 Secondary and unspecified malignant neoplasm of intra-abdominal lymph nodes; J91.0 Malignant pleural effusion; C77.1 Secondary and unspecified malignant neoplasm of intrathoracic lymph nodes; R45.851 Suicidal ideations; E11.40 Type 2 diabetes mellitus with diabetic neuropathy, unspecified; D63.0 Anemia in neoplastic disease; K29.60 Other gastritis without bleeding; R11.0 Nausea; R63.0 Anorexia; F32.9 Major depressive disorder, single episode, unspecified; L30.9 Dermatitis, unspecified; G89.29 Other chronic pain; I10 Essential (primary) hypertension; M19.91 Primary osteoarthritis, unspecified site; E78.5 Hyperlipidemia, unspecified; K58.0 Irritable bowel syndrome with diarrhea; F90.9 Attention-deficit hyperactivity disorder, unspecified type; F98.8 Other specified behavioral and emotional disorders with onset usually occurring in childhood and adolescence; E03.9 Hypothyroidism, unspecified; K21.9 Gastro-esophageal reflux disease without esophagitis; F43.22 Adjustment disorder with anxiety; G43.909 Migraine, unspecified, not intractable, without status migrainosus; J45.909 Unspecified asthma, uncomplicated; Z79.84 Long term (current) use of oral hypoglycemic drugs; Z79.2 Long term (current) use of antibiotics; Z79.899 Other long term (current) drug therapy; Z91.5 Personal history of self-harm; Z90.49 Acquired absence of other specified parts of digestive tract; Z88.5 Allergy status to narcotic agent
CPT/HCPCS: 32555; 43239; 70460; 71010; 71250; 71260; 74176; 80053; 81025; 82150; 83036; 83690; 85025; 85027; 85610; 85730; 86850; 86900; 86901; 86920; 88108; 88305; 88331; 88341; 88342; 94760

== ENCOUNTER 2017-05-31 11:26 | Inpatient (IN) | payer OTHER ==
[2017-05-31] MEDS ORDERED: SODIUM CHLORIDE 0.9% 1,000 ML IV ONE (12:04)
[2017-05-31] MEDS ORDERED: METOCLOPRAMIDE 5 MG/ML 2 ML VIAL IVP STA (12:04)
[2017-05-31] MEDS ORDERED: RX INFO: IV CONTRAST WAS GIVEN 1 EACH MISC MISCELLANE PRN (12:04)
[2017-05-31] MEDS ORDERED: fentaNYL (PF) 50 MCG/ML 2 ML AMP IV STA (12:04)
--- NOTE | 2017-05-31 12:40 | ED ---
Abdominal Pain HPI - General Chief Complaint: Abdominal Pain Stated Complaint: POST OP PAIN Time Seen by Provider: 05/31/17 11:49 Source: patient Mode of arrival: wheelchair Limitations: no limitations - History of Present Illness Initial Comments: This is a 42-year-old female to history of renal cancer that is currently supposed to be undergoing chemotherapy treatment however has been having significant amount pain and vomiting who presents emergency department for worsening bilateral flank pain worse on the left. Intractable nausea and vomiting despite Zofran administration at home. She also states that she's been having some shortness of breath and some chest discomfort and difficulty breathing. She states that she is on Dilaudid at home as well as fentanyl patch. She's had persistent pain that seems to be worsening. She states that she's had normal amount of urination. No fevers or chills. She states that she has not been able to take her chemotherapy because of the vomiting. [facility] who directed her to the emergency department when they could not get her pain controlled. - Related Data Home Medications Medication Instructions Recorded Confirmed Citalopram Hydrobromide [CeleXA] 40 mg PO DAILY 02/05/17 05/31/17 Ketotifen Fumarate [Alaway] 1 drop BOTH EYES DAILY PRN 02/05/17 05/31/17 glipiZIDE [Glucotrol] 5 mg PO DAILY 03/17/17 05/31/17 fentaNYL 25MCG/HR PATCH [Duragesic 2 patch TRANSDERM Q72H 05/31/17 05/31/17 25MCG/HR] fentaNYL 50MCG/HR PATCH [Duragesic 50 mcg TRANSDERM DIRECTED 05/31/17 50MCG/HR] Previous Rx's Medication Instructions Recorded Dronabinol [Marinol] 2.5 mg PO AC-BID #60 capsule 05/10/17 HYDROcodone/APAP 5-325MG [[place] 1 tab PO Q4HR PRN #60 tab 05/10/17 5-325] Metoclopramide [Reglan] 10 mg PO ACHS #120 tab 05/10/17 Ondansetron [Zofran] 4 mg PO Q8HR PRN #90 tab 05/10/17 Pantoprazole [Protonix] 40 mg PO AC-BID #60 tablet. 05/10/17 Scopolamine 1.5MG/72Hr Patch 1 patch TRANSDERM Q72H #10 patch 05/10/17 [TransDerm Scop] ALPRAZolam [Xanax] 0.25 mg PO TID #90 tab 05/27/17 Trimethobenzamide [Tigan] 300 mg PO QID #120 capsule 05/27/17 Allergies Allergy/AdvReac Type Severity Reaction Status Date / Time morphine Allergy Mild Anaphylaxis Verified 05/31/17 11:53 Review of Systems ROS Statement: Those systems with pertinent positive or pertinent negative responses have been documented in the HPI. ROS Other: All systems not noted in ROS Statement are negative. Past Medical History Past Medical History: Asthma, Cancer, Diabetes Mellitus, Eye Disorder, GERD/ Reflux, Hyperlipidemia, Osteoarthritis (OA), Skin Disorder, Thyroid Disorder Additional Past Medical History / Comment(s): Renal cell carcinoma diagnosed 05/05/17, CHRONIC YEAST INFECTION, CHRONIC JOINT PAIN, umbilical HERNIA, NEUROPATHY , OVARIAN CYSTS, IBS, MIGRAINES, TAILBONE FRACTURE 2013, ECZEMA, HEMORRHOIDS, "piece of vision missing from left eye", hx heart murmer, constipation, "spot on liver"possible left lung cancer 05/05/17, pt reports bed sore "right in the crack of my ass" History of Any Multi-Drug Resistant Organisms: None Reported Past Surgical History: Section, Cholecystectomy, Uterine Ablation Additional Past Surgical History / Comment(s): minor surgery on imer great toes for ingroin toenails, kidney biopsy Past Anesthesia/Blood Transfusion Reactions: No Reported Reaction Past Psychological History: ADD/ADHD, Anxiety, Depression Smoking Status: Never smoker Past Alcohol Use History: None Reported Past Drug Use History: None Reported - Past Family History Mother Family Medical History: Cancer Additional Family Medical History / Comment(s): ALZHEIMER'S Father Family Medical History: Cancer Sister(s) Family Medical History: Cancer, Deep Vein Thrombosis (DVT) General Exam - General Exam Comments Initial Comments: Constitutional: Awake alert appears uncomfortable and pale Head: Normocephalic atraumatic Eyes: no conjunctival injection No scleral icterus EOMI Neck: No JVD Supple Heart: Regular rate rhythm normal S1-S2 no murmurs Lungs: There are decreased breath sounds of the entire left lung with bronchial breath sounds No wheezing No rales Abdomen: Soft nondistended there is generalized abdominal tenderness without rebound or guarding, bilateral CVA tenderness Extremities: Non edematous DP pulses intact Radial pulses intact Neuro: A&Ox3 No focal neurologic deficits Psych: Appropriate mood and affect Limitations: no limitations Course Vital Signs 05/31/17 05/31/17 05/31/17 11:40 12:04 12:31 Temperature 99.1 F Pulse Rate 96 95 Respiratory 18 20 20 Rate Blood Pressure 139/87 145/88 O2 Sat by Pulse 94 L 90 L Oximetry 05/31/17 05/31/17 05/31/17 12:55 14:00 14:52 Temperature Pulse Rate 95 97 Respiratory 18 20 20 Rate Blood Pressure 155/90 O2 Sat by Pulse 96 95 Oximetry - Reevaluation(s) Reevaluation #1: 05/31/17 12:39 EKG showing normal sinus rhythm with a rate of 96. No abnormal ST segment changes. There is T-wave flattening in V4 and 5 as well as 3 and aVF. QTC is 439. Other intervals normal. No ectopy. Medical Decision Making - Medical Decision Making This is a 42-year-old female presents emergency department for nausea, vomiting , pain from her renal cell carcinoma. She was also mildly hypoxic 88-89% on room air. She has a large left-sided pleural effusion which appears to be recurrent as malignant etiology. The patient is still having persistent vomiting despite multiple antiemetics given in the emergency department. This combined with the hypoxia feel the patient is seen in the hospital. Spoke with Dr. Childress except see admission and would like Dr. Mcfarland and Dr. Owen on the case. The patient was updated the plan and agrees. All questions were answered. - Lab Data Result diagrams: 05/31/17 12:20 05/31/17 12:20 Lab Results 05/31/17 05/31/17 05/31/17 Range/Units 12:20 12:20 13:27 WBC 10.5 (3.8-10.6) k/uL RBC 3.67 L (3.80-5.40) m/uL Hgb 8.5 L (11.4-16.0) gm/dL Hct 28.6 L (34.0-46.0) % MCV 77.9 L (80.0-100.0) fL MCH 23.1 L (25.0-35.0) pg MCHC 29.7 L (31.0-37.0) g/dL RDW 16.8 H (11.5-15.5) % Plt Count 534 H (150-450) k/uL Neutrophils % 83 % Lymphocytes % 9 % Monocytes % 6 % Eosinophils % 1 % Basophils % 0 % Neutrophils # 8.8 H (1.3-7.7) k/uL Lymphocytes # 0.9 L (1.0-4.8) k/uL Monocytes # 0.6 (0-1.0) k/uL Eosinophils # 0.1 (0-0.7) k/uL Basophils # 0.0 (0-0.2) k/uL Hypochromasia Marked Poikilocytosis Slight Anisocytosis Slight Microcytosis Slight Sodium 130 L (137-145) mmol/L Potassium 4.3 (3.5-5.1) mmol/L Chloride 96 L (98-107) mmol/L Carbon Dioxide 24 (22-30) mmol/L Anion Gap 10 mmol/L BUN 7 (7-17) mg/dL Creatinine 0.56 (0.52-1.04) mg/dL Est GFR (MDRD) Af Amer >60 (>60 ml/min/1.73 sqM) Est GFR (MDRD) Non-Af >60 (>60 ml/min/1.73 sqM) Glucose 186 H (74-99) mg/dL Calcium 8.7 (8.4-10.2) mg/dL Magnesium 1.7 (1.6-2.3) mg/dL Total Bilirubin 0.4 (0.2-1.3) mg/dL AST 18 (14-36) U/L ALT 21 (9-52) U/L Alkaline Phosphatase 116 (38-126) U/L Total Protein 5.9 L (6.3-8.2) g/dL Albumin 2.8 L (3.5-5.0) g/dL Lipase 35 (23-300) U/L Urine Color Yellow Urine Appearance Cloudy H (Clear) Urine pH 6.5 (5.0-8.0) Ur Specific [place] 1.023 (1.001-1.035) Urine Protein 2+ H (Negative) Urine Glucose (UA) 1+ H (Negative) Urine Blood Negative (Negative) Urine Nitrite Negative (Negative) Urine Bilirubin 1+ H (Negative) Urine Urobilinogen 4.0 (<2.0) mg/dL Ur Leukocyte Esterase Trace H (Negative) Urine RBC 1 (0-5) /hpf Urine WBC 9 H (0-5) /hpf Ur Squamous Epith Cells 16 H (0-4) /hpf Hyaline Casts 4 H (0-2) /lpf Urine Mucus Occasional H (None) /hpf Disposition Clinical Impression: Pleural effusion, Renal cell carcinoma, Intractable vomiting Disposition: ADMITTED IP TO THIS HOSP Condition: Stable
[2017-05-31 12:44] LABS: Anisocytosis Slight; Basophils % (A) 0 %; CH 23.4; CHCM 30.1; Eosinophils # (A) 0.1 k/uL (0-0.7); Eosinophils % (A) 1 %; HCT 28.6 % (34.0-46.0); HDW 3.51; HGB 8.5 gm/dL (11.4-16.0); Hypochromasia Marked; Luc # (Auto) 0.18; Luc % (Auto) 2; Lymphocytes # (A) 0.9 k/uL (1.0-4.8); Lymphocytes % (A) 9 %; MCH 23.1 pg (25.0-35.0); MCHC 29.7 g/dL (31.0-37.0); MCV 77.9 fL (80.0-100.0); Mean Platelet Volume 6.8; Microcytosis Slight; Monocytes # (A) 0.6 k/uL (0-1.0); Monocytes % (A) 6 %; Neutrophils # (A) 8.8 k/uL (1.3-7.7); Neutrophils % (A) 83 %; Poikilocytosis Slight; RBC 3.67 m/uL (3.80-5.40); RDW 16.8 % (11.5-15.5); WBC 10.5 k/uL (3.8-10.6); WBC (Perox) 10.74
[2017-05-31 13:00] LABS: ALT 21 U/L (9-52); AST 18 U/L (14-36); Alkaline Phosphatase 116 U/L (38-126); Anion Gap 10 mmol/L; Blood Urea Nitrogen 7 mg/dL (7-17); Calcium 8.7 mg/dL (8.4-10.2); Carbon Dioxide 24 mmol/L (22-30); Chloride 96 mmol/L (98-107); Glucose 186 mg/dL (74-99); Magnesium 1.7 mg/dL (1.6-2.3); Non-African American GFR(MDRD) >60 (>60 ml/min/1.73 sqM); Potassium 4.3 mmol/L (3.5-5.1); Sodium 130 mmol/L (137-145); Total Bilirubin 0.4 mg/dL (0.2-1.3); Total Protein 5.9 g/dL (6.3-8.2)
--- NOTE | 2017-05-31 13:15 | XR ---
EXAMINATION TYPE: XR chest 2V DATE OF EXAM: 05/31/2017 COMPARISON: 05/25/2017 HISTORY: Chest pain and cough TECHNIQUE: Frontal and lateral views of the chest are obtained. FINDINGS: There is a similar moderate size left pleural effusion with mild pulmonary vascular conges tion and left lung airspace disease.. Right lung remains clear as is the left lung apex. Cardiac silh ouette is partially obscured but appears similar to the prior exam. Osseous structures appear intact. IMPRESSION: Similar moderate left pleural effusion with associated left sided airspace disease, like ly atelectasis, and persistent mild pulmonary vascular congestion
[2017-05-31 14:19] LABS: Appearance,Urine Cloudy (Clear); Bilirubin,Urine 1+ (Negative); Glucose,Urine (UA) 1+ (Negative); Leukocyte Esterase,Urine Trace (Negative); Mucus,Urine Occasional /hpf; Nitrite,Urine Negative (Negative); PH, Urine 6.5 (5.0-8.0); Particle Count 9236; Protein,Urine 2+ (Negative); RBC,Urine 1 /hpf (0-5); Specific Gravity,Urine 1.023 (1.001-1.035); Squamous Epithelial Cell,Urine 16 /hpf (0-4); UA Billing (MACRO vs. MICRO) MICRO; WBC,Urine 9 /hpf (0-5)
--- NOTE | 2017-05-31 14:25 | CT ---
EXAMINATION TYPE: CT abdomen pelvis w con DATE OF EXAM: 05/31/2017 HISTORY: Patient complains of difficulty breathing, right flank pain, nausea, vomiting, and history o f recent diagnosis of renal CA. CT DLP: 586.8mGycm Automated Exposure Control for Dose Reduction was Utilized. CONTRAST: CT scan of the abdomen and pelvis is performed with IV Contrast, patient injected with 100 mL of Omni paque 300. COMPARISON: CT chest abdomen and pelvis May 02, 2017. Same day chest x-ray. FINDINGS: LUNG BASES: There is partial visualization of moderate to large size left pleural effusion when kavya red with same day chest x-ray. There is associated compressive atelectasis. There is increasing eleva evelyn left hemidiaphragm now present. There is slightly more prominent small size right pleural effusio n with associated compressive atelectasis LIVER/GB: Cholecystectomy clips are redemonstrated. PANCREAS: No significant abnormality is seen. SPLEEN: Surgical clips near splenic hilum are redemonstrated. There is small amount of ascites along the medial and inferior aspect of spleen now seen. ADRENALS: Left adrenal gland is obliterated by tumor spread. KIDNEYS: Left kidney remains asymmetrically enlarged. There is now heterogeneous soft tissue occupyin g entire kidney invading into lower pole. Some surrounding fluid is redemonstrated. There is marked h eterogeneous soft tissue spread medially and superiorly redemonstrated now causing increased elevated left hemidiaphragm with worsening left upper quadrant abdominal ascites. There is suspected encaseme nt of left renal artery with only proximal and mid segments identified, distal segment narrowing or s tenosis is suspected. Collecting system and calyces are not well identified. No excretion in kidney i s identified. Left kidney is presumed nonfunctioning due to diffuse tumor replacement. Right kidney s hows satisfactory uptake and excretion without hydronephrosis. Tumor extends into aortocaval space. L eft renal vein is not identified to assess patency except near IVC insertion on axial image 27. Invol vement of the anterior superior left paraspinal muscles is noted. BOWEL: No significant abnormality is seen. UTERUS/ADNEXA: Small amount of ascites in pelvis on axial image 72 is redemonstrated. LYMPH NODES: Tumor spread retroperitoneal region is redemonstrated. OSSEOUS STRUCTURES: There is facet arthropathy lower lumbar levels seen. OTHER: No significant additional abnormality is seen. IMPRESSION: Redemonstration of large left renal cell neoplasm with local medial and superior retroper itoneal spread causing mass effect on SMA, left renal artery, and left renal vein as well as left adr enal gland. Recurrent large left pleural effusion is noted. Some progression in tumor spread is felt present as there is increasing elevated left hemidiaphragm and increasing left upper quadrant ascites noted.
[2017-05-31] MEDS ORDERED: LORazepam 2 MG/ML INJ IV STA (14:41)
[2017-05-31] MEDS ORDERED: PROCHLORPERAZINE 5 MG TAB PO PRN (15:05)
[2017-05-31] MEDS ORDERED: NALOXONE 0.4 MG/ML 1 ML VIAL IV PRN (15:05)
[2017-05-31 15:14] LABS: Ketones,Urine 4+ (Negative)
[2017-05-31] MEDS: SODIUM CHLORIDE 0.9% 1,000 ML IV SCH (15:28)
[2017-05-31] MEDS ORDERED: KETOTIFEN 0.025% OPHTH DROPS 5 ML BTL BOTH EYES PRN (16:47)
[2017-05-31 17:28] VITALS: BMI 24.0
[2017-05-31] MEDS ORDERED: DRONABINOL 2.5 MG CAP PO SCH (17:30)
[2017-05-31] MEDS ORDERED: PANTOPRAZOLE 40 MG TABLET PO SCH (17:30)
[2017-05-31] MEDS: ONDANSETRON 4 MG/2 ML VIAL IVP PRN (17:59)
[2017-05-31] MEDS: METOCLOPRAMIDE 10 MG TAB PO SCH (18:29)
[2017-05-31] MEDS: ALPRAZolam 0.25 MG TAB PO SCH ×2 (18:29→20:26)
[2017-05-31 20:14] LABS: Glucose,Whole Blood 175 mg/dL (75-99)
[2017-05-31] MEDS: HEPARIN SODIUM,PORCINE 5,000 UNIT/ML 1 ML VIAL SQ SCH (20:25)
[2017-05-31] MEDS: TRIMETHOBENZAMIDE 300 MG CAP PO SCH (20:25)
[2017-05-31] MEDS: HYDROcodone/APAP 5-325MG 1 EACH TAB PO PRN (20:26)
[2017-05-31] MEDS: PANTOPRAZOLE 40 MG/10 ML VIAL IVP SCH (20:26)
--- NOTE | 2017-05-31 20:34 | HP ---
HISTORY AND PHYSICAL HISTORY OF PRESENT ILLNESS: This 42-year-old woman with a past medical history of recently diagnosed renal cell carcinoma with metastasis is followed by a primary physician in the [place] area. She was recently admitted with nausea, vomiting and acute gastritis symptoms. Currently the patient is being brought to [facility] Emergency Room with complaints of nausea and vomiting. The patient had intractable nausea despite Zofran administration. The patient also received IV fentanyl in the ER. The patient is admitted for further evaluation and treatment. There is no history of any fever or rigors, no history of headache, loss of consciousness, seizures. The patient also has significant left pleural effusion at this time. PAST MEDICAL HISTORY: 1. History of renal cell carcinoma. 2. History of asthma. 3. Diabetes mellitus, type 2. 4. History of GERD. 5. Hyperlipidemia. 6. DJD. 7. Hypothyroidism. HOME MEDICATIONS: 1. Glipizide 5 mg p.o. daily. 2. Fentanyl patch 50 mcg q.72 hours. 3. Tigan 300 mg p.o. q.i.d. 4. Scopolamine patch 1 q.72 hours. 5. Protonix 40 mg b.i.d. 6. Zofran 4 mg q.8 p.r.n. 7. Reglan 10 mg before meals and at bedtime. 8. Alaway 1 drop both eyes daily p.r.n. 9. [place] 5 mg q.4 p.r.n. 10.Marinol 2.5 mg before meals b.i.d. 11.Celexa 40 mg p.o. b.i.d. 12.Xanax 0.5 t.i.d. ALLERGIES: MORPHINE. FAMILY HISTORY: History of cancer, Alzheimer's in the family. SOCIAL HISTORY: No history of smoking. No history of alcohol intake. REVIEW OF SYSTEMS: ENT: No diminished vision. No diminished hearing. CARDIOVASCULAR SYSTEM: No angina, palpitations. RESPIRATORY SYSTEM: No cough, hemoptysis. GI: As mentioned earlier. : As mentioned earlier. NERVOUS SYSTEM: No numbness, weakness.. ALLERGY/IMMUNOLOGY: No asthma or hayfever. MUSCULOSKELETAL: As mentioned earlier. HEMATOLOGY/ONCOLOGY: As mentioned earlier. ENDOCRINE: As mentioned earlier. CONSTITUTIONAL: As mentioned earlier. DERMATOLOGY: Negative. RHEUMATOLOGY: Negative. PSYCHIATRY: As mentioned earlier. PHYSICAL EXAMINATION: Patient is alert and oriented x3. Pulse is 97, blood pressure 155/90, respiration 20, temperature 97.8, pulse ox 94% on 2 L. HEENT: Conjunctivae normal. Oral mucosa moist NECK: No jugular venous distention. No carotid bruit. No lymph node enlargement. CARDIOVASCULAR SYSTEM: S1, S2 muffled. No S3. No S4. RESPIRATORY SYSTEM: Breath sounds diminished at the bases. A few scattered rhonchi. No crackles. ABDOMEN: Soft. Mild diffuse discomfort on palpation. No guarding. No rigidity. No mass palpable. Obese. LEGS: No edema. No swelling. NERVOUS SYSTEM: Higher functions as mentioned earlier. Moves all 4 limbs. No focal motor or sensory deficits LYMPHATICS: No lymph node palpable in neck, axillae or groin. SKIN: No ulcer, rash, bleeding. LABS: WBC 10.5, hemoglobin 8.5. Sodium 130. ASSESSMENT: 1. Acute nausea, vomiting, intractable; rule out acute gastritis. 2. Rule out narcotic overdose. 3. Left pleural effusion. 4. Renal cell carcinoma with metastases, supposed to be on chemo. 5. Hyponatremia. 6. Anemia, microcytic, secondary to chronic blood loss. 7. Attention deficit disorder/attention deficit hyperactivity disorder. 8. Anxiety, depression. 9. History of diabetes mellitus, type 2. 10.Gastroesophageal reflux disease. 11.Hyperlipidemia. 12.History of degenerative joint disease. RECOMMENDATIONS AND DISCUSSION: In this 42-year-old woman who presented with multiple complex medical issues, we will monitor the patient closely. Otherwise, continue the current medications. I would recommend repeat labs. Symptomatic treatment will be provided. Home medications will be resumed. I would recommend proton pump inhibitors. Narcan has been given to reverse any untoward effects at this time. Otherwise, prognosis is guarded because of multiple complex medical issues. I would recommend DVT prophylaxis, also. Repeat labs have been recommended. The patient has shortness of breath also. I would recommend consultation with Dr. Curtis for possible thoracocentesis. Otherwise, overall prognosis is guarded because of the multiple complex medical issues. Further recommendations to follow. MMODL / IJN: [id number] /
[2017-05-31] MEDS ORDERED: ALPRAZolam 0.25 MG TAB PO SCH (22:00)
[2017-06-01] MEDS: METOCLOPRAMIDE 10 MG TAB PO SCH (00:06)
[2017-06-01] MEDS: TRIMETHOBENZAMIDE 300 MG CAP PO SCH ×5 (01:24→20:58)
[2017-06-01] MEDS: HYDROcodone/APAP 5-325MG 1 EACH TAB PO PRN ×4 (01:24→22:01)
[2017-06-01] MEDS: SODIUM CHLORIDE 0.9% 1,000 ML IV SCH ×3 (02:18→21:19)
[2017-06-01 07:23] LABS: Anisocytosis Slight; Basophils % (A) 0 %; CH 23.2; CHCM 29.4; Eosinophils # (A) 0.1 k/uL (0-0.7); Eosinophils % (A) 1 %; HCT 27.9 % (34.0-46.0); HDW 3.54; HGB 8.3 gm/dL (11.4-16.0); Hypochromasia Marked; Luc # (Auto) 0.22; Luc % (Auto) 3; Lymphocytes # (A) 0.9 k/uL (1.0-4.8); Lymphocytes % (A) 12 %; MCH 23.6 pg (25.0-35.0); MCHC 29.8 g/dL (31.0-37.0); MCV 79.1 fL (80.0-100.0); Mean Platelet Volume 6.9; Microcytosis Slight; Monocytes # (A) 0.6 k/uL (0-1.0); Monocytes % (A) 8 %; Neutrophils # (A) 5.7 k/uL (1.3-7.7); Neutrophils % (A) 76 %; Poikilocytosis Slight; RBC 3.52 m/uL (3.80-5.40); RDW 16.7 % (11.5-15.5); WBC 7.5 k/uL (3.8-10.6); WBC (Perox) 8.17
[2017-06-01 07:25] LABS: Glucose,Whole Blood 134 mg/dL (75-99)
[2017-06-01] MEDS: METOCLOPRAMIDE ORAL SOLN 10 MG/10 ML CUP PO SCH ×4 (07:26→20:55)
[2017-06-01] MEDS: ONDANSETRON 4 MG/2 ML VIAL IVP PRN (07:31)
[2017-06-01 07:33] LABS: Anion Gap 9 mmol/L; Blood Urea Nitrogen 3 mg/dL (7-17); Calcium 8.1 mg/dL (8.4-10.2); Carbon Dioxide 23 mmol/L (22-30); Chloride 102 mmol/L (98-107); Glucose 137 mg/dL (74-99); Non-African American GFR(MDRD) >60 (>60 ml/min/1.73 sqM); Potassium 3.7 mmol/L (3.5-5.1); Sodium 134 mmol/L (137-145)
[2017-06-01] MEDS: glipiZIDE 5 MG TAB PO SCH (08:45)
[2017-06-01] MEDS: CITALOPRAM HYDROBROMIDE 20 MG TAB PO SCH (08:45)
[2017-06-01] MEDS: ALPRAZolam 0.25 MG TAB PO SCH ×3 (08:52→22:01)
[2017-06-01] MEDS: HEPARIN SODIUM,PORCINE 5,000 UNIT/ML 1 ML VIAL SQ SCH ×2 (08:53→20:56)
[2017-06-01] MEDS: SCOPOLAMINE 1.5MG/72HR PATCH TRANSDERM SCH (08:53)
[2017-06-01] MEDS: PANTOPRAZOLE 40 MG/10 ML VIAL IVP SCH ×2 (08:53→20:55)
--- NOTE | 2017-06-01 11:52 | US ---
EXAMINATION TYPE: US chest DATE OF EXAM: 06/01/2017 COMPARISON: Chest x-ray and CT abdomen and pelvis from yesterday CLINICAL HISTORY: large left pleural effusion. Abnormal x-ray and CT EXAM MEASUREMENTS: Right Pleural Effusion fluid pocket: small crescent shaped pocket measuring 3.3 Right skin to fluid thickness: 3.7 cm Left Pleural Effusion fluid pocket: 4.0 Left skin to fluid thickness: 3.0 cm Right side marked for possible thoracentesis outside the dept. Left side marked for possible thoracentesis outside the dept. Pulmonologists are able to review the images in the patient?s EMR. As above. Moderate size left pleural effusion confirmed. Only small to tiny right pleural effusion is noted. IMPRESSIONS: As above, right-sided effusion is felt not large enough to warrant safe ultrasound-guide d thoracentesis currently though the overlying skin is marked by technologist. Left side is sufficien t volume.
[2017-06-01 11:56] LABS: Glucose,Whole Blood 154 mg/dL (75-99)
--- NOTE | 2017-06-01 12:26 | P.CONS ---
History of Present Illness - Reason for Consult Consult date: 06/01/17 - History of Present Illness This is 42 years old female with a history of renal cell carcinoma with metastases, she was admitted to [facility] through the emergency room with the complaint of severe nausea and vomiting, patient had history of severe generalized pain and she is treated as an outpatient with fentanyl patch 50 g and [place]/325 every 4 hours 1 tablets when necessary, her pain levels fluctuate between 2/10 increased to 8/10, patient denies any side effects of the medication she denies any excessive drowsiness or sleepiness, also patient diagnosed with pleural effusion and episode of shortness of breath , because patient had pleural effusion and recommend that patient continue on her current pain medication, and there is no need to change the current regimen , I explained to the patient , that if the pain increases he can take the breakthrough medication/[place] to 2 tablets every 4 hours as needed Past Medical History Past Medical History: Asthma, Cancer, Diabetes Mellitus, Eye Disorder, GERD/ Reflux, Hyperlipidemia, Osteoarthritis (OA), Skin Disorder, Thyroid Disorder Additional Past Medical History / Comment(s): Renal cell carcinoma diagnosed 05/05/17 AND" SPOT ON LIVER AND LT LUNG", CHRONIC YEAST INFECTION, CHRONIC JOINT PAIN, umbilical HERNIA, NEUROPATHY, OVARIAN CYSTS, IBS, MIGRAINES, TAILBONE FRACTURE 2014, ECZEMA, HEMORRHOIDS, "piece of vision missing from left eye", hx heart murmur, constipation pt stated no bm few days. History of Any Multi-Drug Resistant Organisms: None Reported Past Surgical History: Section, Cholecystectomy, Uterine Ablation Additional Past Surgical History / Comment(s): minor surgery on imer great toes for ingroin toenails, kidney biopsy Past Anesthesia/Blood Transfusion Reactions: No Reported Reaction Smoking Status: Never smoker - Past Family History Mother Family Medical History: Cancer Additional Family Medical History / Comment(s): ALZHEIMER'S Father Family Medical History: Cancer Sister(s) Family Medical History: Cancer, Deep Vein Thrombosis (DVT) Medications and Allergies Home Medications Medication Instructions Recorded Confirmed Type Citalopram Hydrobromide [CeleXA] 40 mg PO DAILY 02/05/17 05/31/17 History Ketotifen Fumarate [Alaway] 1 drop BOTH EYES DAILY PRN 02/05/17 05/31/17 History glipiZIDE [Glucotrol] 5 mg PO DAILY 03/17/17 05/31/17 History Dronabinol [Marinol] 2.5 mg PO AC-BID #60 capsule 05/10/17 05/31/17 Rx HYDROcodone/APAP 5-325MG [[place] 1 tab PO Q4HR PRN #60 tab 05/10/17 05/31/17 Rx 5-325] Metoclopramide [Reglan] 10 mg PO ACHS #120 tab 05/10/17 05/31/17 Rx Ondansetron [Zofran] 4 mg PO Q8HR PRN #90 tab 05/10/17 05/31/17 Rx Pantoprazole [Protonix] 40 mg PO AC-BID #60 tablet.dr 05/10/17 05/31/17 Rx Scopolamine 1.5MG/72Hr Patch 1 patch TRANSDERM Q72H #10 patch 05/10/17 05/31/17 Rx [TransDerm Scop] ALPRAZolam [Xanax] 0.25 mg PO TID #90 tab 05/27/17 05/31/17 Rx Trimethobenzamide [Tigan] 300 mg PO QID #120 capsule 05/27/17 05/31/17 Rx fentaNYL 25MCG/HR PATCH [Duragesic 2 patch TRANSDERM Q72H 05/31/17 05/31/17 History 25MCG/HR] fentaNYL 50MCG/HR PATCH [Duragesic 50 mcg TRANSDERM DIRECTED 05/31/17 History 50MCG/HR] Allergies Allergy/AdvReac Type Severity Reaction Status Date / Time morphine Allergy Mild Anaphylaxis Verified 05/31/17 11:53 Physical Exam Vitals: Vital Signs Temp Pulse Pulse Resp BP BP Pulse Ox 06/01/17 08:00 95 18 93 L 06/01/17 07:00 98.4 F 95 18 155/93 93 L 06/01/17 04:00 95 06/01/17 00:00 94 L 05/31/17 20:30 98.6 F 107 H 16 184/94 94 L 05/31/17 20:00 95 05/31/17 16:00 20 94 L 05/31/17 15:05 97.8 F 05/31/17 14:52 97 20 155/90 95 05/31/17 14:00 20 05/31/17 12:55 95 18 96 05/31/17 12:31 95 20 145/88 90 L Intake and Output 05/31/17 06/01/17 06/01/17 22:59 06:59 14:59 Intake Total 1000 1200 Balance 1000 1200 Intake: Amount of Fluid Infused ( 1000 ml) Intake, IV Titration 1200 Amount Sodium Chloride 0.9% 1, 1200 000 ml @ 100 mls/hr IV . Q10H BEBE Rx#:[id number] Other: # Voids 2 2 Weight 67.585 kg 67.585 kg Patient Weight 06/02/17 06:59 Weight 67.585 kg Results CBC & Chem 7: 06/01/17 07:09 06/01/17 07:09 Labs: Abnormal Lab Results - Last 24 Hours (Table) 05/31/17 05/31/17 05/31/17 Range/Units 12:20 12:20 13:27 RBC 3.67 L (3.80-5.40) m/uL Hgb 8.5 L (11.4-16.0) gm/dL Hct 28.6 L (34.0-46.0) % MCV 77.9 L (80.0-100.0) fL MCH 23.1 L (25.0-35.0) pg MCHC 29.7 L (31.0-37.0) g/dL RDW 16.8 H (11.5-15.5) % Plt Count 534 H (150-450) k/uL Neutrophils # 8.8 H (1.3-7.7) k/uL Lymphocytes # 0.9 L (1.0-4.8) k/uL Sodium 130 L (137-145) mmol/L Chloride 96 L (98-107) mmol/L BUN (7-17) mg/dL Creatinine (0.52-1.04) mg/dL Glucose 186 H (74-99) mg/dL POC Glucose (mg/dL) (75-99) mg/dL Calcium (8.4-10.2) mg/dL Total Protein 5.9 L (6.3-8.2) g/dL Albumin 2.8 L (3.5-5.0) g/dL Urine Appearance Cloudy H (Clear) Urine Protein 2+ H (Negative) Urine Glucose (UA) 1+ H (Negative) Urine Ketones 4+ H (Negative) Urine Bilirubin 1+ H (Negative) Ur Leukocyte Esterase Trace H (Negative) Urine WBC 9 H (0-5) /hpf Ur Squamous Epith Cells 16 H (0-4) /hpf Hyaline Casts 4 H (0-2) /lpf Urine Mucus Occasional H (None) /hpf 05/31/17 06/01/17 06/01/17 Range/Units 20:08 07:09 07:09 RBC 3.52 L (3.80-5.40) m/uL Hgb 8.3 L (11.4-16.0) gm/dL Hct 27.9 L (34.0-46.0) % MCV 79.1 L (80.0-100.0) fL MCH 23.6 L (25.0-35.0) pg MCHC 29.8 L (31.0-37.0) g/dL RDW 16.7 H (11.5-15.5) % Plt Count 451 H (150-450) k/uL Neutrophils # (1.3-7.7) k/uL Lymphocytes # 0.9 L (1.0-4.8) k/uL Sodium 134 L (137-145) mmol/L Chloride (98-107) mmol/L BUN 3 L (7-17) mg/dL Creatinine 0.47 L (0.52-1.04) mg/dL Glucose 137 H (74-99) mg/dL POC Glucose (mg/dL) 175 H (75-99) mg/dL Calcium 8.1 L (8.4-10.2) mg/dL Total Protein (6.3-8.2) g/dL Albumin (3.5-5.0) g/dL Urine Appearance (Clear) Urine Protein (Negative) Urine Glucose (UA) (Negative) Urine Ketones (Negative) Urine Bilirubin (Negative) Ur Leukocyte Esterase (Negative) Urine WBC (0-5) /hpf Ur Squamous Epith Cells (0-4) /hpf Hyaline Casts (0-2) /lpf Urine Mucus (None) /hpf 06/01/17 06/01/17 Range/Units 07:23 11:50 RBC (3.80-5.40) m/uL Hgb (11.4-16.0) gm/dL Hct (34.0-46.0) % MCV (80.0-100.0) fL MCH (25.0-35.0) pg MCHC (31.0-37.0) g/dL RDW (11.5-15.5) % Plt Count (150-450) k/uL Neutrophils # (1.3-7.7) k/uL Lymphocytes # (1.0-4.8) k/uL Sodium (137-145) mmol/L Chloride (98-107) mmol/L BUN (7-17) mg/dL Creatinine (0.52-1.04) mg/dL Glucose (74-99) mg/dL POC Glucose (mg/dL) 134 H 154 H (75-99) mg/dL Calcium (8.4-10.2) mg/dL Total Protein (6.3-8.2) g/dL Albumin (3.5-5.0) g/dL Urine Appearance (Clear) Urine Protein (Negative) Urine Glucose (UA) (Negative) Urine Ketones (Negative) Urine Bilirubin (Negative) Ur Leukocyte Esterase (Negative) Urine WBC (0-5) /hpf Ur Squamous Epith Cells (0-4) /hpf Hyaline Casts (0-2) /lpf Urine Mucus (None) /hpf
--- NOTE | 2017-06-01 15:13 | P.CNPUL ---
<Brianne Cool M - Last Filed: 06/01/17 15:13> History of Present Illness Consult date: 06/01/17 Requesting physician: Kasey Childress Reason for consult: dyspnea, other Chief complaint: Increased shortness of breath, nausea, vomiting History of present illness: Alice is a 42-year-old white female with a history of recently diagnosed metastatic renal cell carcinoma, who presented to the emergency room on 2016 at around 11:00 with complaints significant amount of bilateral posterior chest pain, as well as on both sides of the torso, companied by nausea, vomiting despite Zofran administration at home. She states over the last week she has been having increased shortness of breath at rest, reports some chills, but no fevers. She's been having dry nonproductive cough which has further aggravated the back and bilateral torso pain. She was initially worked up by urology Dr. Haile who identified an unresectable infiltrating mass and biopsied the lymph nodes that were positive for poorly differentiated renal cell carcinoma. Patient was then seen by Dr. Spivey in consultation on 05/01/2017 and was supposed to start oral Pazopanib, but due to the intractable nausea and vomiting has not been able to start it yet. Patient is receiving Seymour, and fentanyl transdermal patch at home for pain control, as well as Protonix, scopolamine patch, Zofran and Reglan. She states she has lost over 40 pounds in the last 3 months, has been able to tolerate oral intake very well due to ongoing nausea and vomiting. CT of abdomen and pelvis on 05/31/2017 showed moderate to large sized left pleural effusion with associated compressive atelectasis and elevated left hemidiaphragm. Large left renal cell neoplasm with local medial and superior retroperitoneal spread causing mass effect on SMA , left renal artery and left renal vein as well as left adrenal gland was redemonstrated on the CT of the abdomen. Some progression in the tumor spread was felt to be present based on the elevation of the left hemidiaphragm and increasing left upper quadrant ascites. On presentation to the emergency department she was mildly hypoxic with O2 sat at 88-89% on room air, having intractable vomiting despite that anti-emetics and having posterior chest and bilateral torso pain. Chest x-ray from 05/31/2017 showed moderate left pleural effusion with associated atelectasis and persistent mild pulmonary vascular congestion. The patient had ultrasound-guided left thoracentesis by interventional radiology on 05/03/2017 when drainage of approximately 500 mL of sanguinous drainage. On examination today the patient is resting in bed, intermittently lethargic, but arousable to verbal stimuli. Seems somewhat sedated, tending to occasionally fall asleep in the middle of conversation. She is on 2 L of oxygen with O2 sat of 96%. No febrile episodes since admission noted. Lab work is without any evidence of leukocytosis, patient is anemic with a hemoglobin of 8.3 today, with evidence of marked hypochromia and microcytosis. There is evidence of hyponatremia, which is improved to 134 on today's labs up from 130 on 05/31/2017. Patient's is able to tolerate sips of clear liquids this morning. Lung sounds are diminished air entry bilaterally with decreased air sounds over left posterior lower lobe. Increased dullness to percussion over left posterior lower lobe. Abdomen is soft, nontender. No significant chest congestion, no rhonchi, no wheezing. She remains on 2 L per nasal cannula with O2 sat of 93%. No signs of respiratory distress noted or use of accessory muscles. Review of Systems All systems: negative Constitutional: Denies chills, Denies fever Eyes: denies blurred vision, denies pain Ears, nose, mouth and throat: Denies headache, Denies sore throat Cardiovascular: Denies chest pain, Denies shortness of breath Respiratory: Denies cough Gastrointestinal: Denies abdominal pain, Denies diarrhea, Denies nausea, Denies vomiting Genitourinary: Denies dysuria, Denies hematuria Musculoskeletal: Denies myalgias Integumentary: Denies pruritus, Denies rash Neurological: Denies numbness, Denies weakness Psychiatric: Denies anxiety, Denies depression Endocrine: Denies fatigue, Denies weight change Past Medical History Past Medical History: Asthma, Cancer, Diabetes Mellitus, Eye Disorder, GERD/ Reflux, Hyperlipidemia, Osteoarthritis (OA), Skin Disorder, Thyroid Disorder Additional Past Medical History / Comment(s): Renal cell carcinoma diagnosed 05/05/17 AND" SPOT ON LIVER AND LT LUNG", CHRONIC YEAST INFECTION, CHRONIC JOINT PAIN, umbilical HERNIA, NEUROPATHY, OVARIAN CYSTS, IBS, MIGRAINES, TAILBONE FRACTURE 2013, ECZEMA, HEMORRHOIDS, "piece of vision missing from left eye", hx heart murmur, constipation pt stated no bm few days. History of Any Multi-Drug Resistant Organisms: None Reported Past Surgical History: Section, Cholecystectomy, Uterine Ablation Additional Past Surgical History / Comment(s): minor surgery on imer great toes for ingroin toenails, kidney biopsy Past Anesthesia/Blood Transfusion Reactions: No Reported Reaction Smoking Status: Never smoker - Past Family History Mother Family Medical History: Cancer Additional Family Medical History / Comment(s): ALZHEIMER'S Father Family Medical History: Cancer Sister(s) Family Medical History: Cancer, Deep Vein Thrombosis (DVT) Medications and Allergies Home Medications Medication Instructions Recorded Confirmed Type Citalopram Hydrobromide [CeleXA] 40 mg PO DAILY 02/05/17 05/31/17 History Ketotifen Fumarate [Alaway] 1 drop BOTH EYES DAILY PRN 02/05/17 05/31/17 History glipiZIDE [Glucotrol] 5 mg PO DAILY 03/17/17 05/31/17 History Dronabinol [Marinol] 2.5 mg PO AC-BID #60 capsule 05/10/17 05/31/17 Rx HYDROcodone/APAP 5-325MG [Seymour 1 tab PO Q4HR PRN #60 tab 05/10/17 05/31/17 Rx 5-325] Metoclopramide [Reglan] 10 mg PO ACHS #120 tab 05/10/17 05/31/17 Rx Ondansetron [Zofran] 4 mg PO Q8HR PRN #90 tab 05/10/17 05/31/17 Rx Pantoprazole [Protonix] 40 mg PO AC-BID #60 tablet.dr 05/10/17 05/31/17 Rx Scopolamine 1.5MG/72Hr Patch 1 patch TRANSDERM Q72H #10 patch 05/10/17 05/31/17 Rx [TransDerm Scop] ALPRAZolam [Xanax] 0.25 mg PO TID #90 tab 05/27/17 05/31/17 Rx Trimethobenzamide [Tigan] 300 mg PO QID #120 capsule 05/27/17 05/31/17 Rx fentaNYL 25MCG/HR PATCH [Duragesic 2 patch TRANSDERM Q72H 05/31/17 05/31/17 History 25MCG/HR] fentaNYL 50MCG/HR PATCH [Duragesic 50 mcg TRANSDERM DIRECTED 05/31/17 History 50MCG/HR] Allergies Allergy/AdvReac Type Severity Reaction Status Date / Time morphine Allergy Mild Anaphylaxis Verified 05/31/17 11:53 Physical Exam Vitals: Vital Signs Temp Pulse Pulse Resp BP BP Pulse Ox 06/01/17 08:00 95 18 93 L 06/01/17 07:00 98.4 F 95 18 155/93 93 L 06/01/17 04:00 95 06/01/17 00:00 94 L 05/31/17 20:30 98.6 F 107 H 16 184/94 94 L 05/31/17 20:00 95 05/31/17 16:00 20 94 L 05/31/17 15:05 97.8 F 05/31/17 14:52 97 20 155/90 95 05/31/17 14:00 20 05/31/17 12:55 95 18 96 05/31/17 12:31 95 20 145/88 90 L 05/31/17 12:04 20 Intake and Output 05/31/17 06/01/17 06/01/17 22:59 06:59 14:59 Intake Total 1000 1200 Balance 1000 1200 Intake: Amount of Fluid Infused ( 1000 ml) Intake, IV Titration 1200 Amount Sodium Chloride 0.9% 1, 1200 000 ml @ 100 mls/hr IV . Q10H [facility] Rx#:[id number] Other: # Voids 2 2 Weight 67.585 kg 67.585 kg Patient Weight 06/02/17 06:59 Weight 67.585 kg Lethargic but arousable to verbal stimuli, 42-year-old female, pale and weak - Constitutional General appearance: no acute distress, thin - EENT Eyes: PERRLA, dentition normal ENT: NA/AT Ears: bilateral: normal - Neck Neck: normal ROM Carotids: bilateral: upstroke normal Thyroid: bilateral: normal size - Respiratory Respiratory: left: dullness, bilateral: diminished - Cardiovascular Rhythm: regular Heart sounds: normal: S1, S2 ankle Peripheral Edema: absent: None foot Peripheral Edema: absent: None - Gastrointestinal General gastrointestinal: decreased bowel sounds, no organomegaly, soft, no tenderness - Integumentary Integumentary: normal turgor, pale - Neurologic Neurologic: CNII-XII intact - Musculoskeletal Musculoskeletal: generalized weakness, strength equal bilaterally - Psychiatric Psychiatric: A&O x's 3, appropriate affect, intact judgment & insight Results - Laboratory Findings CBC and BMP: 06/01/17 07:09 06/01/17 07:09 Abnormal lab findings: Abnormal Labs 05/31/17 05/31/17 05/31/17 12:20 12:20 13:27 RBC 3.67 L Hgb 8.5 L Hct 28.6 L MCV 77.9 L MCH 23.1 L MCHC 29.7 L RDW 16.8 H Plt Count 534 H Neutrophils # 8.8 H Lymphocytes # 0.9 L Sodium 130 L Chloride 96 L BUN Creatinine Glucose 186 H POC Glucose (mg/dL) Calcium Total Protein 5.9 L Albumin 2.8 L Urine Appearance Cloudy H Urine Protein 2+ H Urine Glucose (UA) 1+ H Urine Ketones 4+ H Urine Bilirubin 1+ H Ur Leukocyte Esterase Trace H Urine WBC 9 H Ur Squamous Epith Cells 16 H Hyaline Casts 4 H Urine Mucus Occasional H 05/31/17 06/01/17 06/01/17 20:08 07:09 07:09 RBC 3.52 L Hgb 8.3 L Hct 27.9 L MCV 79.1 L MCH 23.6 L MCHC 29.8 L RDW 16.7 H Plt Count 451 H Neutrophils # Lymphocytes # 0.9 L Sodium 134 L Chloride BUN 3 L Creatinine 0.47 L Glucose 137 H POC Glucose (mg/dL) 175 H Calcium 8.1 L Total Protein Albumin Urine Appearance Urine Protein Urine Glucose (UA) Urine Ketones Urine Bilirubin Ur Leukocyte Esterase Urine WBC Ur Squamous Epith Cells Hyaline Casts Urine Mucus 06/01/17 06/01/17 07:23 11:50 RBC Hgb Hct MCV MCH MCHC RDW Plt Count Neutrophils # Lymphocytes # Sodium Chloride BUN Creatinine Glucose POC Glucose (mg/dL) 134 H 154 H Calcium Total Protein Albumin Urine Appearance Urine Protein Urine Glucose (UA) Urine Ketones Urine Bilirubin Ur Leukocyte Esterase Urine WBC Ur Squamous Epith Cells Hyaline Casts Urine Mucus - Diagnostic Findings Chest x-ray: report reviewed Assessment and Plan Plan: Assessment: #1. Intractable nausea and vomiting, despite antiemetics. CT abdomen and pelvis from 05/31/2017 shows evidence of tumor spread of a large left renal cell neoplasm causing mass effect and SMA, left renal artery, and left renal vein as well as left adrenal gland and causing elevation in the left hemidiaphragm #2. Acute hypoxic respiratory failure related to a large left pleural effusion #3. Hyponatremia, sodium is 134, likely due to hypovolemia due to decreased oral intake and nausea and vomiting, IV 0.9 at 100 ml/hr is infusing at 100 ml/ hr #3. Severe generalized pain, pain management consult appreciated, currently on fentanyl transdermal patch and Seymour #4. Protein calorie malnutrition, due to decreased intake and intractable nausea and vomiting. 40 pound weight loss in the last 3 months. #5. History of asthma, not on any maintenance inhalers and medications #6. Diabetes mellitus type 2 #7. History of GERD #8. Hyperlipidemia #9. Hypothyroidism #10. Osteoarthritis Plan: Chest x-ray, abdominal pelvis CT and chest ultrasound were reviewed by Dr. Curtis. The left-sided thoracentesis was discussed with the patient, patient is in agreement. Not much in way of sputum production, no signs of chest congestion, no rhonchi or wheezing. Continue with pain control, and antiemetics. Dietary consult in regards to his normal weight loss and decreased oral intake. No evidence of leukocytosis. Agree with IV fluid hydration. Hopefully patient can restart her oral Pazopanib for her renal cell cancer once were able to control her nausea and vomiting. I performed a history & physical examination of the patient and discussed their management with my nurse practitioner, Brianne Cool. I reviewed the nurse practitioner's note and agree with the documented findings and plan of care. Lung sounds are diminished at the bases, dullness to percussion over left lower lobe. The findings and the impression was discussed with the patient. I attest to the documentation by the nurse practitioner. Time with Patient: Greater than 30 <Earl Curtis - Last Filed: 06/01/17 15:42> Physical Exam Vitals: Vital Signs Temp Pulse Resp BP Pulse Ox 06/01/17 15:28 93 18 93 L 06/01/17 14:56 98.3 F 93 18 145/86 92 L 06/01/17 08:00 95 18 93 L 06/01/17 07:00 98.4 F 95 18 155/93 93 L 06/01/17 04:00 95 06/01/17 00:00 94 L 05/31/17 20:30 98.6 F 107 H 16 184/94 94 L 05/31/17 20:00 95 05/31/17 16:00 20 94 L Intake and Output 06/01/17 06/01/17 06/01/17 06:59 14:59 22:59 Intake Total 1200 700 Balance 1200 700 Intake: Intake, IV Titration 1200 700 Amount Sodium Chloride 0.9% 1, 1200 700 000 ml @ 100 mls/hr IV . Q10H [facility] Rx#:[id number] Other: # Voids 2 Weight 67.585 kg 67.585 kg Patient Weight 06/02/17 06:59 Weight 67.585 kg Results - Laboratory Findings CBC and BMP: 06/01/17 07:09 06/01/17 07:09 Abnormal lab findings: Abnormal Labs 05/31/17 05/31/17 05/31/17 12:20 12:20 13:27 RBC 3.67 L Hgb 8.5 L Hct 28.6 L MCV 77.9 L MCH 23.1 L MCHC 29.7 L RDW 16.8 H Plt Count 534 H Neutrophils # 8.8 H Lymphocytes # 0.9 L Sodium 130 L Chloride 96 L BUN Creatinine Glucose 186 H POC Glucose (mg/dL) Calcium Total Protein 5.9 L Albumin 2.8 L Urine Appearance Cloudy H Urine Protein 2+ H Urine Glucose (UA) 1+ H Urine Ketones 4+ H Urine Bilirubin 1+ H Ur Leukocyte Esterase Trace H Urine WBC 9 H Ur Squamous Epith Cells 16 H Hyaline Casts 4 H Urine Mucus Occasional H 05/31/17 06/01/17 06/01/17 20:08 07:09 07:09 RBC 3.52 L Hgb 8.3 L Hct 27.9 L MCV 79.1 L MCH 23.6 L MCHC 29.8 L RDW 16.7 H Plt Count 451 H Neutrophils # Lymphocytes # 0.9 L Sodium 134 L Chloride BUN 3 L Creatinine 0.47 L Glucose 137 H POC Glucose (mg/dL) 175 H Calcium 8.1 L Total Protein Albumin Urine Appearance Urine Protein Urine Glucose (UA) Urine Ketones Urine Bilirubin Ur Leukocyte Esterase Urine WBC Ur Squamous Epith Cells Hyaline Casts Urine Mucus 06/01/17 06/01/17 07:23 11:50 RBC Hgb Hct MCV MCH MCHC RDW Plt Count Neutrophils # Lymphocytes # Sodium Chloride BUN Creatinine Glucose POC Glucose (mg/dL) 134 H 154 H Calcium Total Protein Albumin Urine Appearance Urine Protein Urine Glucose (UA) Urine Ketones Urine Bilirubin Ur Leukocyte Esterase Urine WBC Ur Squamous Epith Cells Hyaline Casts Urine Mucus Assessment and Plan Plan: This is a joint evaluation that was done and the lung with a nurse practitioner. The patient was interviewed. The patient is having shortness of breath pH apparently had a thoracentesis around 3-4 weeks ago by interventional radiology during which 500 mL of pleural fluid is aspirated and the patient had significant symptomatically relief. The fluid cytology was positive for malignancy of a renal cell type consistent with metastatic disease involvement. We will offer this patient another thoracentesis to give her symptomatic relief. We'll continue to follow.
--- NOTE | 2017-06-01 16:28 | P.PN ---
Subjective Progress Note Date: 06/01/17 Progress note being dictated for Dr. Childress. Interval history: This a 42-year-old female admitted with acute nausea vomiting intractable pain, possible acute gastritis, left pleural effusion, hyponatremia in a patient recently diagnosed with renal cell carcinoma with metastasis. Maintained on IV fluids with sodium improving, up to 134. Falling asleep during assessment. Chest ultrasound marked bilateral sides for potential thoracentesis, moderate size left pleural effusion confirmed with only smaller right pleural effusion. Evaluated by pulmonary and scheduled for thoracentesis. Hemoglobin 8.3. Maintaining O2 sats in the mid 90s on 2 L nasal cannula. Afebrile. Objective - Vital Signs Vital signs: Vital Signs Temp 98.4 F 06/01/17 07:00 Pulse 95 06/01/17 08:00 Resp 18 06/01/17 08:00 BP 155/93 06/01/17 07:00 Pulse Ox 93 L 06/01/17 08:00 Intake & Output 05/31/17 06/01/17 06/01/17 18:59 06:59 18:59 Intake Total 1000 1200 Balance 1000 1200 Weight 67.585 kg 67.585 kg Intake: Amount of Fluid Infused ( 1000 ml) Intake, IV Titration 1200 Amount Sodium Chloride 0.9% 1, 1200 000 ml @ 100 mls/hr IV . Q10H [facility] Rx#:[id number] Other: # Voids 2 - Exam PHYSICAL EXAM: VITAL SIGNS: [As above] GENERAL: Sitting up in bed, tired appearing, following asleep during assessment HEENT: Conjunctivae normal. eyes normal. NECK: No JVD. No thyroid enlargement. No LNs CARDIOVASCULAR: S1, S2 muffled. No murmur RESPIRATION: Breath sounds diminished in the bases, worse on the left with no wheezing, no crackles, no rhonchi ABDOMEN: Soft, mild diffuse tenderness . No guarding. no masses palpable.Bowel sounds heard. LEGS: No edema. no swelling PSYCHIATRY: Alert and oriented -3, mood and affect normal. NERVOUS SYSTEM: Cranial N 2-12 grossly normal. Moves all 4 limbs. Diffuse weakness No focal deficits. No sensory deficit. Skin: no ulcer no rash Joints: No active swelling. No inflammation. Lymphatic system. No LN neck axilla or groin. - Labs CBC & Chem 7: 06/01/17 07:09 06/01/17 07:09 Labs: Abnormal Lab Results - Last 24 Hours (Table) 05/31/17 05/31/17 06/01/17 Range/Units 13:27 20:08 07:09 RBC 3.52 L (3.80-5.40) m/uL Hgb 8.3 L (11.4-16.0) gm/dL Hct 27.9 L (34.0-46.0) % MCV 79.1 L (80.0-100.0) fL MCH 23.6 L (25.0-35.0) pg MCHC 29.8 L (31.0-37.0) g/dL RDW 16.7 H (11.5-15.5) % Plt Count 451 H (150-450) k/uL Lymphocytes # 0.9 L (1.0-4.8) k/uL Sodium (137-145) mmol/L BUN (7-17) mg/dL Creatinine (0.52-1.04) mg/dL Glucose (74-99) mg/dL POC Glucose (mg/dL) 175 H (75-99) mg/dL Calcium (8.4-10.2) mg/dL Urine Appearance Cloudy H (Clear) Urine Protein 2+ H (Negative) Urine Glucose (UA) 1+ H (Negative) Urine Ketones 4+ H (Negative) Urine Bilirubin 1+ H (Negative) Ur Leukocyte Esterase Trace H (Negative) Urine WBC 9 H (0-5) /hpf Ur Squamous Epith Cells 16 H (0-4) /hpf Hyaline Casts 4 H (0-2) /lpf Urine Mucus Occasional H (None) /hpf 06/01/17 06/01/17 06/01/17 Range/Units 07:09 07:23 11:50 RBC (3.80-5.40) m/uL Hgb (11.4-16.0) gm/dL Hct (34.0-46.0) % MCV (80.0-100.0) fL MCH (25.0-35.0) pg MCHC (31.0-37.0) g/dL RDW (11.5-15.5) % Plt Count (150-450) k/uL Lymphocytes # (1.0-4.8) k/uL Sodium 134 L (137-145) mmol/L BUN 3 L (7-17) mg/dL Creatinine 0.47 L (0.52-1.04) mg/dL Glucose 137 H (74-99) mg/dL POC Glucose (mg/dL) 134 H 154 H (75-99) mg/dL Calcium 8.1 L (8.4-10.2) mg/dL Urine Appearance (Clear) Urine Protein (Negative) Urine Glucose (UA) (Negative) Urine Ketones (Negative) Urine Bilirubin (Negative) Ur Leukocyte Esterase (Negative) Urine WBC (0-5) /hpf Ur Squamous Epith Cells (0-4) /hpf Hyaline Casts (0-2) /lpf Urine Mucus (None) /hpf Assessment and Plan Plan: 1. Acute nausea, vomiting, intractable, rule out acute gastritis 2. Rule out narcotic overdose 3. Left pleural effusion, thoracentesis pending 4. Renal cell carcinoma with metastasis, supposed to be on chemo 5. Hyponatremia 6. Anemia, microcytic secondary to chronic blood loss 7. Attention deficit disorder/attention deficit hyperactivity disorder 8. Anxiety, depression 9. Diabetes mellitus type 2 10. Gastroesophageal reflux disease Plan: Continue on current medication regime ,monitoring and symptomatic treatment. Maintain IV fluid hydration. Left-sided thoracentesis pending as per pulmonary. Pain management consult in place with recommendations pending. Close monitoring of hemoglobin and electrolytes with repeat labs ordered for a.m. The impression and plan of care has been dictated as directed. : I performed a history and examination of this patient, discussed the same with the dictator. I agree with the dictator's note ,documented as a scribe. Any additional findings or plans will be noted.
[2017-06-01 16:56] LABS: Glucose,Whole Blood 148 mg/dL (75-99)
--- NOTE | 2017-06-01 17:07 | PN ---
PROGRESS NOTE DATE OF SERVICE: 06/01/2017 This 42-year-old woman with a past medical history of multiple medical problems including metastatic renal cancer, was admitted with acute gastritis. The patient has been closely monitored at this time. The patient was seen by Pain Management as well as Dr. Curtis. Dr. Curtis considering another thoracocentesis at this time. Otherwise the Pain Management team was also seen the patient. Recommend to continue current medications. There is a chest ultrasound was noted which showed ascitic fluid pocket of 4 cm. No chest pain. No palpitations. No fever. PHYSICAL EXAM: Alert and oriented times three. Pulse 93, blood pressure 140/88, respiration 18 , temperature 98.2, pulse ox 98% on room air. HEENT conjunctivae normal. Neck no jugular venous distention. Cardiovascular: S1, S2. Respiration: Breath sounds diminished at the bases. A few scattered rhonchi and crackles. ABDOMEN: Soft, nontender. No mass palpable. Legs no edema. No swelling. Central nervous system: Higher functions as mentioned earlier. Moves all four extremities. No focal deficits. Lymphatics: No lymph nodes palpable in the neck, axillae or groin. Skin: No ulcer, rash or bleeding. LABS: WBC ntd hemoglobin 7.3. ASSESSMENT: 1. Acute nausea, vomiting, intractable pain, possible acute gastritis. 2. Rule out narcotic overdose present on admission. 3. Bilateral pleural effusion, left more than the right. 4. Renal cell carcinoma with metastasis on chemo. 5. Hyponatremia. 6. Anemia, microcytic secondary to chronic blood loss. 7. Attention-deficit/hyperactivity disorder. 8. Anxiety, depression. 9. History of diabetes type 2. 10.Gastroesophageal reflux disease. 11.Hyperlipidemia. 12.History of degenerative joint disease. RECOMMENDATIONS AND DISCUSSION: Recommend to continue current management and symptomatic treatment. Closely follow with Dr. Curtis, possibly interventional Radiology and thoracocentesis. Otherwise prognosis is extremely guarded. Patient currently FULL CODE. Closely follow with Hematology/Oncology regarding the further course of action. Further recommendations to follow. MMODL / IJN: [id number] / MTDD
--- NOTE | 2017-06-01 18:18 | P.CONS ---
History of Present Illness - Reason for Consult Consult date: 06/01/17 intractable nausea, vomiting. failure to thrive. metastatic renal cancer - History of Present Illness Mrs. Boyer is a pleasant female pt who was initially seen in consult 05/01/17, she had persistent/progressive left-sided flank pain x 2-3 months, associated with nausea, vomiting, hematuria and weakness. She was initially worked up by Urology, imaging suggesting infiltrating changes around the left kidney suggestive of an infectious cause but it did not respond to antibiotics, she was taken to surgery on 04/28/17, by Dr. Hobbs who identified an unresectable infiltrating mass, enlarged lymph node was excised and sent for pathology that was positive for poorly differentiated carcinoma, further studies required, final diagnosis poorly differentiated renal cell carcinoma, pt did have malignant pleural effusion, CT brain was negative. She initially had a prolonged hospitalization due to difficulties with pain control, decreased mobility and ability as well as nausea and vomiting. She had an EGD with biopsy that was negative other than some chronic gastritis. She was initially stabilized with multiple antiemetic medications. She was seen in the office subsequently, and Votrient was recommended and subsequently ordered for her. She was readmitted again in late 05/16 with recurrent nausea and vomiting. She stated that she had not been able to swallow the Votrient. She was treated supportively with improvement and then discharged. She was seen in the office yesterday, and continued to complain of persistent nausea and vomiting despite multiple antiemetics. She again stated that she had not really try to even take the Votrient. In addition to oral intake had been very poor as the patient claimed that even the smell and sight of food make her follow-up. He reported progressive weakness, as well as increasing pain. She was therefore sent in to the hospital and admitted for further management. Consult was placed for further evaluation and recommendations Review of Systems Constitutional: Reports chronic pain, Reports fatigue, Reports poor appetite, Reports weakness, Reports weight loss Eyes: denies blurred vision, denies pain Ears: deny: decreased hearing, ear discharge, earache, tinnitus Ears, nose, mouth and throat: Reports dysphagia, Denies headache, Denies sore throat Cardiovascular: Reports dyspnea on exertion Respiratory: Reports dyspnea Gastrointestinal: Reports loss of appetite, Reports nausea, Reports vomiting Genitourinary: Reports as per HPI, Reports flank pain Musculoskeletal: Reports muscle weakness Integumentary: Denies pruritus, Denies rash Neurological: Reports weakness Psychiatric: Reports anxiety, Reports depression Endocrine: Reports fatigue, Reports weight change Hematologic/Lymphatic: Reports as per HPI Past Medical History Past Medical History: Asthma, Cancer, Diabetes Mellitus, Eye Disorder, GERD/ Reflux, Hyperlipidemia, Osteoarthritis (OA), Skin Disorder, Thyroid Disorder Additional Past Medical History / Comment(s): Renal cell carcinoma diagnosed 05/05/17 AND" SPOT ON LIVER AND LT LUNG", CHRONIC YEAST INFECTION, CHRONIC JOINT PAIN, umbilical HERNIA, NEUROPATHY, OVARIAN CYSTS, IBS, MIGRAINES, TAILBONE FRACTURE 2013, ECZEMA, HEMORRHOIDS, "piece of vision missing from left eye", hx heart murmur, constipation pt stated no bm few days. History of Any Multi-Drug Resistant Organisms: None Reported Past Surgical History: Section, Cholecystectomy, Uterine Ablation Additional Past Surgical History / Comment(s): minor surgery on imer great toes for ingroin toenails, kidney biopsy Past Anesthesia/Blood Transfusion Reactions: No Reported Reaction Smoking Status: Never smoker - Past Family History Mother Family Medical History: Cancer Additional Family Medical History / Comment(s): ALZHEIMER'S Father Family Medical History: Cancer Sister(s) Family Medical History: Cancer, Deep Vein Thrombosis (DVT) Medications and Allergies Home Medications Medication Instructions Recorded Confirmed Type Citalopram Hydrobromide [CeleXA] 40 mg PO DAILY 02/05/17 05/31/17 History Ketotifen Fumarate [[place]away] 1 drop BOTH EYES DAILY PRN 02/05/17 05/31/17 History glipiZIDE [Glucotrol] 5 mg PO DAILY 03/17/17 05/31/17 History Dronabinol [Marinol] 2.5 mg PO AC-BID #60 capsule 05/10/17 05/31/17 Rx HYDROcodone/APAP 5-325MG [[place] 1 tab PO Q4HR PRN #60 tab 05/10/17 05/31/17 Rx 5-325] Metoclopramide [Reglan] 10 mg PO ACHS #120 tab 05/10/17 05/31/17 Rx Ondansetron [Zofran] 4 mg PO Q8HR PRN #90 tab 05/10/17 05/31/17 Rx Pantoprazole [Protonix] 40 mg PO AC-BID #60 tablet. 05/10/17 05/31/17 Rx Scopolamine 1.5MG/72Hr Patch 1 patch TRANSDERM Q72H #10 patch 05/10/17 05/31/17 Rx [TransDerm Scop] ALPRAZolam [Xanax] 0.25 mg PO TID #90 tab 05/27/17 05/31/17 Rx Trimethobenzamide [Tigan] 300 mg PO QID #120 capsule 05/27/17 05/31/17 Rx fentaNYL 25MCG/HR PATCH [Duragesic 2 patch TRANSDERM Q72H 05/31/17 05/31/17 History 25MCG/HR] fentaNYL 50MCG/HR PATCH [Duragesic 50 mcg TRANSDERM DIRECTED 05/31/17 History 50MCG/HR] Allergies Allergy/AdvReac Type Severity Reaction Status Date / Time morphine Allergy Mild Anaphylaxis Verified 05/31/17 11:53 Physical Exam Vitals: Vital Signs Temp Pulse Resp BP Pulse Ox 06/01/17 15:28 93 18 93 L 06/01/17 14:56 98.3 F 93 18 145/86 92 L 06/01/17 08:00 95 18 93 L 06/01/17 07:00 98.4 F 95 18 155/93 93 L 06/01/17 04:00 95 06/01/17 00:00 94 L 05/31/17 20:30 98.6 F 107 H 16 184/94 94 L 05/31/17 20:00 95 Intake and Output 06/01/17 06/01/17 06/01/17 06:59 14:59 22:59 Intake Total 1200 700 Balance 1200 700 Intake: Intake, IV Titration 1200 700 Amount Sodium Chloride 0.9% 1, 1200 700 000 ml @ 100 mls/hr IV . Q10H [facility] Rx#:[id number] Other: # Voids 2 Weight 67.585 kg 67.585 kg Patient Weight 06/02/17 06:59 Weight 67.585 kg - Constitutional General appearance: mild distress - EENT Eyes: EOMI, PERRLA ENT: hearing grossly normal, normal oropharynx - Neck Neck: no lymphadenopathy Thyroid: bilateral: normal size - Respiratory Respiratory: left: diminished, dullness - Cardiovascular Rhythm: regular Heart sounds: normal: S1, S2 - Gastrointestinal General gastrointestinal: normal bowel sounds, soft - Integumentary Integumentary: normal - Neurologic Neurologic: CNII-XII intact - Musculoskeletal Musculoskeletal: generalized weakness - Psychiatric Psychiatric: A&O x's 3, appropriate affect Results CBC & Chem 7: 06/01/17 07:09 06/01/17 07:09 Labs: Abnormal Lab Results - Last 24 Hours (Table) 05/31/17 06/01/17 06/01/17 Range/Units 20:08 07:09 07:09 RBC 3.52 L (3.80-5.40) m/uL Hgb 8.3 L (11.4-16.0) gm/dL Hct 27.9 L (34.0-46.0) % MCV 79.1 L (80.0-100.0) fL MCH 23.6 L (25.0-35.0) pg MCHC 29.8 L (31.0-37.0) g/dL RDW 16.7 H (11.5-15.5) % Plt Count 451 H (150-450) k/uL Lymphocytes # 0.9 L (1.0-4.8) k/uL Sodium 134 L (137-145) mmol/L BUN 3 L (7-17) mg/dL Creatinine 0.47 L (0.52-1.04) mg/dL Glucose 137 H (74-99) mg/dL POC Glucose (mg/dL) 175 H (75-99) mg/dL Calcium 8.1 L (8.4-10.2) mg/dL 06/01/17 06/01/17 06/01/17 Range/Units 07:23 11:50 16:55 RBC (3.80-5.40) m/uL Hgb (11.4-16.0) gm/dL Hct (34.0-46.0) % MCV (80.0-100.0) fL MCH (25.0-35.0) pg MCHC (31.0-37.0) g/dL RDW (11.5-15.5) % Plt Count (150-450) k/uL Lymphocytes # (1.0-4.8) k/uL Sodium (137-145) mmol/L BUN (7-17) mg/dL Creatinine (0.52-1.04) mg/dL Glucose (74-99) mg/dL POC Glucose (mg/dL) 134 H 154 H 148 H (75-99) mg/dL Calcium (8.4-10.2) mg/dL Comments: ultrasound chest report reviewed Chest x-ray: report reviewed CT scan - abdomen: report reviewed CT scan - pelvis: report reviewed Assessment and Plan (1) Intractable vomiting Narrative/Plan: This is persistent and prominent, despite very aggressive and diabetic regimen. The cause of this is somewhat unclear. The patient had a negative CT of the brain, as well as essentially negative EGD. She does have significant left subdiaphragmatic involvement with malignancy. However a significant component of her nausea and vomiting appears to be functioning she states that even the smell of food makes her want to vomit. Clinically it is felt that there is a significant anxiety component. However use of anti-anxiety medications has not been helpful either. IV hydration while in the hospital, along with IV anti emetics, for acute management Current Visit: Yes Status: Acute Code(s): R11.10 - VOMITING, UNSPECIFIED SNOMED Code(s): 102485898 (2) Renal cell adenocarcinoma Narrative/Plan: The patient's symptoms and presentation have made treatment for her stage IV renal carcinoma very challenging. She has been prescribed Votrient but has not really taken it due to her complains of nausea. Various measures have been discussed with her, but she has not really implemented any of them. CT scan of the abdomen and pelvis done this admission appears to show further progression in the left side of the abdomen. I had a long discussion with the patient and her . She was advised just most first-line treatment options are oral. The one parenteral option, specifically Avastin and interferon combination, would not be appropriate for her because of the potential of severe side effects with interferon, as well as increased with Avastin, given that her blood pressure has been significantly elevated off and on. IV PD-L1 antibodies are approved only in the second line. Therefore the patient is not able to tolerate by mouth, our options would be very limited. As noted very aggressive efforts to control her nausea have not been very successful. I therefore recommended that the patient consider a feeding tube placement. With that, at least nutrition can be established. That way, she would only have to manage swallowing her pills (I do not believe that Votrient can be given through the feeding tube the research this further). I did advise her that success cannot be guaranteed. She and her had various questions which were answered to the best of my ability. At this time she stated that she would like to think about this further and then let us know her decision. Current Visit: Yes Status: Acute Priority: High Code(s): C64.9 - MALIGNANT NEOPLASM OF UNSP KIDNEY, EXCEPT RENAL PELVIS SNOMED Code(s): 727743109 (3) Pleural effusion Narrative/Plan: The chest x-ray appears to show some very accumulation of pleural effusion on the left side. This would be consistent with progression noted below the diaphragm. Ultrasound of the chest has been ordered to plan for thoracentesis. Current Visit: Yes Status: Acute Code(s): J90 - PLEURAL EFFUSION, NOT ELSEWHERE CLASSIFIED SNOMED Code(s): 67854846 Plan: Pain service has been consulted As noted, there appears to be a significant component of anxiety and depression. The patient was seen by psychiatry previously, and some medication modifications were recommended which she refused. We have advised her strongly to reconsider recommendations by psychiatry. A new consult will be placed
[2017-06-01 20:42] LABS: Glucose,Whole Blood 172 mg/dL (75-99)
[2017-06-02] MEDS: HYDROcodone/APAP 5-325MG 1 EACH TAB PO PRN ×4 (04:15→20:50)
[2017-06-02 07:26] LABS: Basophils % (A) 1 %; CH 23.1; CHCM 28.8; Eosinophils # (A) 0.1 k/uL (0-0.7); Eosinophils % (A) 2 %; HCT 27.1 % (34.0-46.0); HDW 3.86; HGB 7.9 gm/dL (11.4-16.0); Hypochromasia Marked; Luc # (Auto) 0.19; Luc % (Auto) 3; Lymphocytes # (A) 0.8 k/uL (1.0-4.8); Lymphocytes % (A) 13 %; MCH 23.5 pg (25.0-35.0); MCHC 29.3 g/dL (31.0-37.0); Mean Platelet Volume 6.3; Monocytes # (A) 0.6 k/uL (0-1.0); Monocytes % (A) 10 %; Neutrophils # (A) 4.7 k/uL (1.3-7.7); Neutrophils % (A) 73 %; Poikilocytosis Slight; RBC 3.38 m/uL (3.80-5.40); RDW 15.2 % (11.5-15.5); WBC 6.5 k/uL (3.8-10.6); WBC (Perox) 6.65
[2017-06-02] MEDS ORDERED: MAGNESIUM HYDROXIDE 2,400 MG/10 ML CUP PO PRN ×2 (07:32→09:13)
[2017-06-02 07:52] LABS: Anion Gap 8 mmol/L; Blood Urea Nitrogen 2 mg/dL (7-17); Carbon Dioxide 24 mmol/L (22-30); Chloride 101 mmol/L (98-107); Glucose 159 mg/dL (74-99); Non-African American GFR(MDRD) >60 (>60 ml/min/1.73 sqM); Potassium 3.9 mmol/L (3.5-5.1); Sodium 133 mmol/L (137-145)
[2017-06-02 07:56] LABS: Glucose,Whole Blood 169 mg/dL (75-99)
[2017-06-02] MEDS: SODIUM CHLORIDE 0.9% 1,000 ML IV SCH ×2 (08:52→15:12)
[2017-06-02] MEDS: METOCLOPRAMIDE ORAL SOLN 10 MG/10 ML CUP PO SCH ×4 (08:52→20:53)
[2017-06-02] MEDS: TRIMETHOBENZAMIDE 300 MG CAP PO SCH ×5 (08:53→20:56)
[2017-06-02] MEDS: PANTOPRAZOLE 40 MG/10 ML VIAL IVP SCH ×2 (08:53→20:53)
[2017-06-02] MEDS: glipiZIDE 5 MG TAB PO SCH (08:53)
[2017-06-02] MEDS: CITALOPRAM HYDROBROMIDE 20 MG TAB PO SCH (08:53)
[2017-06-02] MEDS: HEPARIN SODIUM,PORCINE 5,000 UNIT/ML 1 ML VIAL SQ SCH ×2 (08:53→20:53)
[2017-06-02] MEDS: ALPRAZolam 0.25 MG TAB PO SCH ×2 (09:24→15:11)
[2017-06-02] MEDS: ONDANSETRON 4 MG/2 ML VIAL IVP PRN ×2 (09:24→20:07)
--- NOTE | 2017-06-02 11:23 | XR ---
EXAMINATION TYPE: XR chest 1V DATE OF EXAM: 06/02/2017 HISTORY: left thoracentesis. REFERENCE: Previous study dated 05/31/2017. FINDINGS: There has been slight improvement in the patient's left-sided effusion. Heart size remains obscured. Pulmonary vascular congestion has improved but is still mildly present. The degree of pulmo nary edema has also improved. IMPRESSION: IMPROVING APPEARANCE OF THE CHEST.
--- NOTE | 2017-06-02 11:55 | P.PCN ---
Date of Procedure: 06/02/17 Preoperative Diagnosis: Left-sided pleural effusion Postoperative Diagnosis: Left-sided pleural effusion Procedure(s) Performed: Thoracentesis Anesthesia: local Surgeon: Earl Curtis Estimated Blood Loss (ml): 0 Pathology: none sent Condition: stable Disposition: floor Indications for Procedure: Shortness of breath Description of Procedure: Patient was placed in the usual fashion in a sitting up position with arms extended on a bedside table. This procedure was done with ultrasound markings. The left chest was marked for pleural fluid. The skin was sterilized using ChloraPrep and following that the skin was infused with 1% lidocaine to achieve adequate local anesthesia. Following that, a thoracentesis catheter was successfully inserted to the left mid thorax and a total of 1.0 L of bloody pleural effusion was aspirated without any complications. The patient tolerated the procedure well. There was no evidence of any pneumothorax. The catheter was removed. The chest x-ray was done. The fluid was not sent for analysis knowing that any earlier thoracentesis the patient was confirmed to have malignant pleural effusion.
--- NOTE | 2017-06-02 12:36 | P.PN ---
Subjective Progress Note Date: 06/02/17 Principal diagnosis: Acute hypoxic respiratory failure related to a malignant large left pleural effusion Alice is a 42-year-old white female with a history of recently diagnosed metastatic renal cell carcinoma, who presented to the emergency room on 2016 at around 11:00 with complaints significant amount of bilateral posterior chest pain, as well as on both sides of the torso, companied by nausea, vomiting despite Zofran administration at home. She states over the last week she has been having increased shortness of breath at rest, reports some chills, but no fevers. She's been having dry nonproductive cough which has further aggravated the back and bilateral torso pain. She was initially worked up by urology Dr. Haile who identified an unresectable infiltrating mass and biopsied the lymph nodes that were positive for poorly differentiated renal cell carcinoma. Patient was then seen by Dr. Spivey in consultation on 05/01/2017 and was supposed to start oral Pazopanib, but due to the intractable nausea and vomiting has not been able to start it yet. Patient is receiving Shorter, and fentanyl transdermal patch at home for pain control, as well as Protonix, scopolamine patch, Zofran and Reglan. She states she has lost over 40 pounds in the last 3 months, has been able to tolerate oral intake very well due to ongoing nausea and vomiting. CT of abdomen and pelvis on 05/31/2017 showed moderate to large sized left pleural effusion with associated compressive atelectasis and elevated left hemidiaphragm. Large left renal cell neoplasm with local medial and superior retroperitoneal spread causing mass effect on SMA , left renal artery and left renal vein as well as left adrenal gland was redemonstrated on the CT of the abdomen. Some progression in the tumor spread was felt to be present based on the elevation of the left hemidiaphragm and increasing left upper quadrant ascites. On presentation to the emergency department she was mildly hypoxic with O2 sat at 88-89% on room air, having intractable vomiting despite that anti-emetics and having posterior chest and bilateral torso pain. Chest x-ray from 05/31/2017 showed moderate left pleural effusion with associated atelectasis and persistent mild pulmonary vascular congestion. The patient had ultrasound-guided left thoracentesis by interventional radiology on 05/03/2017 when drainage of approximately 500 mL of sanguinous drainage. On examination today the patient is resting in bed, intermittently lethargic, but arousable to verbal stimuli. Seems somewhat sedated, tending to occasionally fall asleep in the middle of conversation. She is on 2 L of oxygen with O2 sat of 96%. No febrile episodes since admission noted. Lab work is without any evidence of leukocytosis, patient is anemic with a hemoglobin of 8.3 today, with evidence of marked hypochromia and microcytosis. There is evidence of hyponatremia, which is improved to 134 on today's labs up from 130 on 05/31/2017. Patient's is able to tolerate sips of clear liquids this morning. Lung sounds are diminished air entry bilaterally with decreased air sounds over left posterior lower lobe. Increased dullness to percussion over left posterior lower lobe. Abdomen is soft, nontender. No significant chest congestion, no rhonchi, no wheezing. She remains on 2 L per nasal cannula with O2 sat of 93%. No signs of respiratory distress noted or use of accessory muscles. On 06/02/2017 patient is seen in follow-up. She had undergone left thoracentesis by Dr. Curtis this morning with the drainage of 1000 mL of bloody pleural effusion without any complications. She tolerated the procedure very well. Follow-up chest x-ray showed no evidence of any pneumothorax. The fluid was not sent for analysis knowing that the diagnosis of malignancy was already established from the fluid from the previous thoracentesis. Lung sounds are positive for bibasilar crackles. Oxygenation remained stable on 2 L per nasal cannula with O2 sat 96%. She has been afebrile, she hasn't had any further episodes of vomiting since yesterday morning. She is tolerating clear liquid diet, although her appetite remains extremely poor. Her pain is better controlled with Shorter, and transdermal patch fentanyl. Continue with IV hydration, antiemetics and pain management. Oncology input was noted and appreciated. Objective - Vital Signs Vital signs: Vital Signs Temp 97.8 F 06/02/17 07:00 Pulse 95 06/02/17 07:00 Resp 16 06/02/17 07:00 BP 139/89 06/02/17 07:00 Pulse Ox 96 06/02/17 07:00 Intake & Output 06/01/17 06/02/17 06/02/17 18:59 06:59 18:59 Intake Total 700 680 400 Balance 700 680 400 Weight 67.585 kg Intake: Intake, IV Titration 700 Amount Sodium Chloride 0.9% 1, 700 000 ml @ 100 mls/hr IV . Q10H [facility] Rx#:[id number] Oral 680 400 Other: # Voids 1 - Exam Lethargic but arousable to verbal stimuli, 42-year-old female, pale and weak - Constitutional General appearance: no acute distress, thin - EENT Eyes: PERRLA, dentition normal ENT: NA/AT Ears: bilateral: normal - Neck Neck: normal ROM Carotids: bilateral: upstroke normal Thyroid: bilateral: normal size - Respiratory Respiratory: Bibasilar crackles - Cardiovascular Rhythm: regular Heart sounds: normal: S1, S2 ankle Peripheral Edema: absent: None foot Peripheral Edema: absent: None - Gastrointestinal General gastrointestinal: decreased bowel sounds, no organomegaly, soft, no tenderness - Integumentary Integumentary: normal turgor, pale - Neurologic Neurologic: CNII-XII intact - Musculoskeletal Musculoskeletal: generalized weakness, strength equal bilaterally - Psychiatric Psychiatric: A&O x's 3, appropriate affect, intact judgment & insight - Labs CBC & Chem 7: 06/02/17 06:47 06/02/17 06:47 Labs: Abnormal Lab Results - Last 24 Hours (Table) 06/01/17 06/01/17 06/02/17 Range/Units 16:55 20:40 06:47 RBC 3.38 L (3.80-5.40) m/uL Hgb 7.9 L (11.4-16.0) gm/dL Hct 27.1 L (34.0-46.0) % MCH 23.5 L (25.0-35.0) pg MCHC 29.3 L (31.0-37.0) g/dL Plt Count 480 H (150-450) k/uL Lymphocytes # 0.8 L (1.0-4.8) k/uL Sodium (137-145) mmol/L BUN (7-17) mg/dL Creatinine (0.52-1.04) mg/dL Glucose (74-99) mg/dL POC Glucose (mg/dL) 148 H 172 H (75-99) mg/dL Calcium (8.4-10.2) mg/dL 06/02/17 06/02/17 Range/Units 06:47 07:54 RBC (3.80-5.40) m/uL Hgb (11.4-16.0) gm/dL Hct (34.0-46.0) % MCH (25.0-35.0) pg MCHC (31.0-37.0) g/dL Plt Count (150-450) k/uL Lymphocytes # (1.0-4.8) k/uL Sodium 133 L (137-145) mmol/L BUN 2 L (7-17) mg/dL Creatinine 0.51 L (0.52-1.04) mg/dL Glucose 159 H (74-99) mg/dL POC Glucose (mg/dL) 169 H (75-99) mg/dL Calcium 8.0 L (8.4-10.2) mg/dL Assessment and Plan Plan: Assessment: #1. Intractable nausea and vomiting, despite antiemetics. CT abdomen and pelvis from 05/31/2017 shows evidence of tumor spread of a large left renal cell neoplasm causing mass effect and SMA, left renal artery, and left renal vein as well as left adrenal gland and causing elevation in the left hemidiaphragm #2. Acute hypoxic respiratory failure related to a malignant large left pleural effusion, status post left thoracentesis today on 06/02/[address] Curtis with aspiration of 1000 mL of bloody pleural fluid. #3. Hyponatremia, sodium is 133, likely due to hypovolemia due to decreased oral intake and nausea and vomiting, IV 0.9 at 100 ml/hr is infusing at 100 ml/ hr #3. Severe generalized pain, pain management consult appreciated, currently on fentanyl transdermal patch and Shorter #4. Protein calorie malnutrition, due to decreased intake and intractable nausea and vomiting. 40 pound weight loss in the last 3 months. #5. History of asthma, not on any maintenance inhalers and medications #6. Diabetes mellitus type 2 #7. History of GERD #8. Hyperlipidemia #9. Hypothyroidism #10. Osteoarthritis Plan: Patient underwent left thoracentesis with Dr. Curtis today with aspiration of 1000 mL of bloody pleural fluid. Tolerated it well. Follow-up chest x-ray demonstrates improvement in the patient's left-sided effusion, no evidence of pneumothorax. Not much in way of sputum production, no signs of chest congestion , no rhonchi or wheezing. Continue with pain control, and antiemetics. Dietary consult in regards to his normal weight loss and decreased oral intake. No evidence of leukocytosis. Agree with IV fluid hydration. Anticipate improvement in oxygenation and dyspnea after the left thoracentesis. I performed a history & physical examination of the patient and discussed their management with my nurse practitioner, Brianne Cool. I reviewed the nurse practitioner's note and agree with the documented findings and plan of care. Lung sounds are diminished at the bases, with bibasilar crackles. The findings and the impression was discussed with the patient. I attest to the documentation by the nurse practitioner. Time with Patient: Less than 30
--- NOTE | 2017-06-02 14:09 | P.PN ---
Subjective Progress Note Date: 06/02/17 Progress note being dictated for Dr. Guardado Interval history: This a 42-year-old female admitted with acute nausea vomiting intractable pain, possible acute gastritis, left pleural effusion, hyponatremia in a patient recently diagnosed with renal cell carcinoma with metastasis. Maintained on IV fluids with sodium improving, up to 134. Falling asleep during assessment. Chest ultrasound marked bilateral sides for potential thoracentesis, moderate size left pleural effusion confirmed with only smaller right pleural effusion. Evaluated by pulmonary and scheduled for thoracentesis. Hemoglobin 8.3. Maintaining O2 sats in the mid 90s on 2 L nasal cannula. Afebrile. 06/02/2017 maintained on IV fluid hydration, nausea and pain improving.just completed left thoracentesis at bedside with pulmonary, 1 L of bloody pleural fluid obtained. Tolerated well. Postprocedure chest x-ray reporting improvement in left-sided pleural effusion with no pneumothorax reported. States improved breathing. Denies chest pain, palpitations or increased shortness of breath. Continue O2 sats in the 90s on 2 L nasal cannula. Afebrile. Objective - Vital Signs Vital signs: Vital Signs Temp 97.8 F 06/02/17 07:00 Pulse 95 06/02/17 07:00 Resp 16 06/02/17 07:00 BP 139/89 06/02/17 07:00 Pulse Ox 96 06/02/17 07:00 Intake & Output 06/01/17 06/02/17 06/02/17 18:59 06:59 18:59 Intake Total 700 680 750 Balance 700 680 750 Weight 67.585 kg Intake: Intake, IV Titration 700 Amount Sodium Chloride 0.9% 1, 700 000 ml @ 100 mls/hr IV . Q10H BE[facility] Rx#:[id number] Oral 680 750 Other: # Voids 1 - Exam PHYSICAL EXAM: VITAL SIGNS: [As above] GENERAL: Sitting up in bed, no acute distress, more alert HEENT: Conjunctivae normal. eyes normal. NECK: No JVD. No thyroid enlargement. No LNs CARDIOVASCULAR: S1, S2 muffled. No murmur RESPIRATION: Breath sounds diminished in the bases, worse on the left with no wheezing, fine bibasilar crackles, no rhonchi ABDOMEN: Soft, mild diffuse tenderness . No guarding. no masses palpable.Bowel sounds heard. LEGS: No edema. no swelling PSYCHIATRY: Alert and oriented -3, mood and affect normal. NERVOUS SYSTEM: Cranial N 2-12 grossly normal. Moves all 4 limbs. Diffuse weakness No focal deficits. No sensory deficit. Skin: no ulcer no rash Joints: No active swelling. No inflammation. Lymphatic system. No LN neck axilla or groin. - Labs CBC & Chem 7: 06/02/17 06:47 06/02/17 06:47 Labs: Abnormal Lab Results - Last 24 Hours (Table) 06/01/17 06/01/17 06/02/17 Range/Units 16:55 20:40 06:47 RBC 3.38 L (3.80-5.40) m/uL Hgb 7.9 L (11.4-16.0) gm/dL Hct 27.1 L (34.0-46.0) % MCH 23.5 L (25.0-35.0) pg MCHC 29.3 L (31.0-37.0) g/dL Plt Count 480 H (150-450) k/uL Lymphocytes # 0.8 L (1.0-4.8) k/uL Sodium (137-145) mmol/L BUN (7-17) mg/dL Creatinine (0.52-1.04) mg/dL Glucose (74-99) mg/dL POC Glucose (mg/dL) 148 H 172 H (75-99) mg/dL Calcium (8.4-10.2) mg/dL 06/02/17 06/02/17 Range/Units 06:47 07:54 RBC (3.80-5.40) m/uL Hgb (11.4-16.0) gm/dL Hct (34.0-46.0) % MCH (25.0-35.0) pg MCHC (31.0-37.0) g/dL Plt Count (150-450) k/uL Lymphocytes # (1.0-4.8) k/uL Sodium 133 L (137-145) mmol/L BUN 2 L (7-17) mg/dL Creatinine 0.51 L (0.52-1.04) mg/dL Glucose 159 H (74-99) mg/dL POC Glucose (mg/dL) 169 H (75-99) mg/dL Calcium 8.0 L (8.4-10.2) mg/dL Assessment and Plan Plan: 1. Acute nausea, vomiting, intractable, rule out acute gastritis 2. Rule out narcotic overdose 3. Left pleural effusion, status post left thoracentesis 4. Renal cell carcinoma with metastasis, supposed to be on chemo 5. Hyponatremia 6. Anemia, microcytic secondary to chronic blood loss 7. Attention deficit disorder/attention deficit hyperactivity disorder 8. Anxiety, depression 9. Diabetes mellitus type 2 10. Gastroesophageal reflux disease Plan: Continue on current medication regime ,monitoring and symptomatic treatment. Maintain IV fluid hydration. Left-sided thoracentesis completed with cultures pending. Pain management as per pain management services. Close monitoring of hemoglobin and electrolytes with repeat labs ordered for a.m. The impression and plan of care has been dictated as directed. : I performed a history and examination of this patient, discussed the same with the dictator. I agree with the dictator's note ,documented as a scribe. Any additional findings or plans will be noted.
[2017-06-02] MEDS: VOTRIENT PO SCH (16:53)
[2017-06-02] MEDS: BENZOCAINE/MENTHOL LOZENG 1 EACH LOZENGE MUCOUS MEM PRN ×2 (16:55→23:01)
--- NOTE | 2017-06-02 18:08 | P.PN ---
Subjective Progress Note Date: 06/02/17 The patient still appears to be weak, somewhat apathetic and lethargic. She states that she was able to eat some food and keep it down. She continues to complain of pain in the left lower chest/left upper abdominal quadrant area, as well as poor endurance Objective - Vital Signs Vital signs: Vital Signs Temp 97.8 F 06/02/17 15:00 Pulse 101 H 06/02/17 15:00 Resp 16 06/02/17 15:00 BP 134/81 06/02/17 15:00 Pulse Ox 92 L 06/02/17 15:00 Intake & Output 06/01/17 06/02/17 06/02/17 18:59 06:59 18:59 Intake Total 002 229 1199 Output Total 3 Balance 260 471 8701 Weight 67.585 kg Intake: Intake, IV Titration 700 Amount Sodium Chloride 0.9% 1, 700 000 ml @ 100 mls/hr IV . Q10H [facility] Rx#:[id number] Oral 680 1250 Output: Stool 3 Other: # Voids 1 2 - Constitutional General appearance: Present: no acute distress - EENT Eyes: Present: EOMI, PERRLA ENT: Present: hearing grossly normal, normal oropharynx - Respiratory Respiratory: left: diminished - Cardiovascular Rhythm: regular Heart sounds: normal: S1, S2 - Gastrointestinal General gastrointestinal: Present: normal bowel sounds, soft - Integumentary Integumentary: Present: normal - Neurologic Neurologic: Present: CNII-XII intact - Musculoskeletal Musculoskeletal: Present: generalized weakness, strength equal bilaterally - Psychiatric Psychiatric: Present: A&O x's 3 - Labs CBC & Chem 7: 06/02/17 06:47 06/02/17 06:47 Labs: Abnormal Lab Results - Last 24 Hours (Table) 06/01/17 06/02/17 06/02/17 Range/Units 20:40 06:47 06:47 RBC 3.38 L (3.80-5.40) m/uL Hgb 7.9 L (11.4-16.0) gm/dL Hct 27.1 L (34.0-46.0) % MCH 23.5 L (25.0-35.0) pg MCHC 29.3 L (31.0-37.0) g/dL Plt Count 480 H (150-450) k/uL Lymphocytes # 0.8 L (1.0-4.8) k/uL Sodium 133 L (137-145) mmol/L BUN 2 L (7-17) mg/dL Creatinine 0.51 L (0.52-1.04) mg/dL Glucose 159 H (74-99) mg/dL POC Glucose (mg/dL) 172 H (75-99) mg/dL Calcium 8.0 L (8.4-10.2) mg/dL 06/02/17 Range/Units 07:54 RBC (3.80-5.40) m/uL Hgb (11.4-16.0) gm/dL Hct (34.0-46.0) % MCH (25.0-35.0) pg MCHC (31.0-37.0) g/dL Plt Count (150-450) k/uL Lymphocytes # (1.0-4.8) k/uL Sodium (137-145) mmol/L BUN (7-17) mg/dL Creatinine (0.52-1.04) mg/dL Glucose (74-99) mg/dL POC Glucose (mg/dL) 169 H (75-99) mg/dL Calcium (8.4-10.2) mg/dL Assessment and Plan (1) Intractable vomiting Narrative/Plan: The patient continues to complain of nausea, and intermittent vomiting. The actual amount of warm it is produced however is quite small and appears to consist of mostly saliva. She states that she was able to keep down some food today. I again discussed placement of a feeding tube to establish nutrition with her. She refused the same. She stated that she would like to try to eat by mouth Continue current anti-emetic regimen Current Visit: Yes Status: Acute Code(s): R11.10 - VOMITING, UNSPECIFIED SNOMED Code(s): 437301969 (2) Renal cell adenocarcinoma Narrative/Plan: As noted above, the patient refused feeding tube placement. Her CT scans unfortunately show evidence of progression, especially in the left upper quadrant. This was discussed with her. She states that she will try to take Votrient by mouth. She was therefore asked to have her bring the pills to the hospital. Nursing was informed to have pharmacy verify the pills on arrival, and then start her on the same Current Visit: Yes Status: Acute Priority: High Code(s): C64.9 - MALIGNANT NEOPLASM OF UNSP KIDNEY, EXCEPT RENAL PELVIS SNOMED Code(s): 910549634 (3) Pleural effusion Narrative/Plan: thoracentesis on the left is planned for progressive left pleural effusion Current Visit: Yes Status: Acute Code(s): J90 - PLEURAL EFFUSION, NOT ELSEWHERE CLASSIFIED SNOMED Code(s): 30420109 Plan: Case was discussed with case management. The patient claims very poor oral intake, with recurrent nausea and vomiting since her initial hospital admission. However her weight has only dropped by about 7 pounds during that time. Therefore her history in this case does not appear to be very reliable
[2017-06-02 20:16] LABS: Glucose,Whole Blood 129 mg/dL (75-99)
[2017-06-03] MEDS: ALPRAZolam 0.25 MG TAB PO SCH ×4 (02:36→23:50)
[2017-06-03] MEDS: SODIUM CHLORIDE 0.9% 1,000 ML IV SCH ×3 (04:05→23:59)
[2017-06-03] MEDS: ONDANSETRON 4 MG/2 ML VIAL IVP PRN ×3 (05:34→22:01)
[2017-06-03] MEDS: HYDROcodone/APAP 5-325MG 1 EACH TAB PO PRN ×3 (05:34→22:02)
[2017-06-03] MEDS: BENZOCAINE/MENTHOL LOZENG 1 EACH LOZENGE MUCOUS MEM PRN (05:38)
[2017-06-03 07:04] LABS: Glucose,Whole Blood 162 mg/dL (75-99)
[2017-06-03 07:28] LABS: Basophils % (A) 0 %; CH 23.1; CHCM 29.1; Eosinophils # (A) 0.2 k/uL (0-0.7); Eosinophils % (A) 3 %; HCT 28.1 % (34.0-46.0); HDW 3.94; HGB 8.2 gm/dL (11.4-16.0); Hypochromasia Marked; Luc # (Auto) 0.13; Luc % (Auto) 2; Lymphocytes # (A) 0.9 k/uL (1.0-4.8); Lymphocytes % (A) 16 %; MCH 23.2 pg (25.0-35.0); MCHC 29.2 g/dL (31.0-37.0); MCV 79.3 fL (80.0-100.0); Mean Platelet Volume 6.5; Monocytes # (A) 0.6 k/uL (0-1.0); Monocytes % (A) 10 %; Neutrophils % (A) 69 %; Poikilocytosis Slight; RBC 3.55 m/uL (3.80-5.40); RDW 15.1 % (11.5-15.5); WBC 5.9 k/uL (3.8-10.6); WBC (Perox) 6.15
[2017-06-03 07:46] LABS: Anion Gap 4 mmol/L; Blood Urea Nitrogen 2 mg/dL (7-17); Carbon Dioxide 29 mmol/L (22-30); Chloride 103 mmol/L (98-107); Glucose 151 mg/dL (74-99); Non-African American GFR(MDRD) >60 (>60 ml/min/1.73 sqM); Potassium 3.7 mmol/L (3.5-5.1); Sodium 136 mmol/L (137-145)
[2017-06-03] MEDS: METOCLOPRAMIDE ORAL SOLN 10 MG/10 ML CUP PO SCH ×4 (07:53→22:03)
[2017-06-03] MEDS: PANTOPRAZOLE 40 MG/10 ML VIAL IVP SCH ×2 (09:08→22:02)
[2017-06-03] MEDS: glipiZIDE 5 MG TAB PO SCH (09:52)
[2017-06-03] MEDS: VOTRIENT PO SCH (09:54)
[2017-06-03] MEDS: TRIMETHOBENZAMIDE 300 MG CAP PO SCH ×4 (10:01→22:01)
[2017-06-03] MEDS: HEPARIN SODIUM,PORCINE 5,000 UNIT/ML 1 ML VIAL SQ SCH ×2 (10:38→22:14)
[2017-06-03] MEDS: CITALOPRAM HYDROBROMIDE 20 MG TAB PO SCH (10:46)
[2017-06-03 12:08] LABS: Glucose,Whole Blood 121 mg/dL (75-99)
--- NOTE | 2017-06-03 14:21 | P.PN ---
Subjective Progress Note Date: 06/03/17 Principal diagnosis: Acute hypoxic respiratory failure secondary to malignant large left pleural effusionFidelia Jenkins is a 42-year-old white female with a history of recently diagnosed metastatic renal cell carcinoma, who presented to the emergency room on 2016 at around 11:00 with complaints significant amount of bilateral posterior chest pain, as well as on both sides of the torso, companied by nausea, vomiting despite Zofran administration at home. She states over the last week she has been having increased shortness of breath at rest, reports some chills, but no fevers. She's been having dry nonproductive cough which has further aggravated the back and bilateral torso pain. She was initially worked up by urology Dr. Haile who identified an unresectable infiltrating mass and biopsied the lymph nodes that were positive for poorly differentiated renal cell carcinoma. Patient was then seen by Dr. Spivey in consultation on 05/01/2017 and was supposed to start oral Pazopanib, but due to the intractable nausea and vomiting has not been able to start it yet. Patient is receiving [place], and fentanyl transdermal patch at home for pain control, as well as Protonix, scopolamine patch, Zofran and Reglan. She states she has lost over 40 pounds in the last 3 months, has been able to tolerate oral intake very well due to ongoing nausea and vomiting. CT of abdomen and pelvis on 05/31/2017 showed moderate to large sized left pleural effusion with associated compressive atelectasis and elevated left hemidiaphragm. Large left renal cell neoplasm with local medial and superior retroperitoneal spread causing mass effect on SMA , left renal artery and left renal vein as well as left adrenal gland was redemonstrated on the CT of the abdomen. Some progression in the tumor spread was felt to be present based on the elevation of the left hemidiaphragm and increasing left upper quadrant ascites. On presentation to the emergency department she was mildly hypoxic with O2 sat at 88-89% on room air, having intractable vomiting despite that anti-emetics and having posterior chest and bilateral torso pain. Chest x-ray from 05/31/2017 showed moderate left pleural effusion with associated atelectasis and persistent mild pulmonary vascular congestion. The patient had ultrasound-guided left thoracentesis by interventional radiology on 05/03/2017 when drainage of approximately 500 mL of sanguinous drainage. On examination today the patient is resting in bed, intermittently lethargic, but arousable to verbal stimuli. Seems somewhat sedated, tending to occasionally fall asleep in the middle of conversation. She is on 2 L of oxygen with O2 sat of 96%. No febrile episodes since admission noted. Lab work is without any evidence of leukocytosis, patient is anemic with a hemoglobin of 8.3 today, with evidence of marked hypochromia and microcytosis. There is evidence of hyponatremia, which is improved to 134 on today's labs up from 130 on 05/31/2017. Patient's is able to tolerate sips of clear liquids this morning. Lung sounds are diminished air entry bilaterally with decreased air sounds over left posterior lower lobe. Increased dullness to percussion over left posterior lower lobe. Abdomen is soft, nontender. No significant chest congestion, no rhonchi, no wheezing. She remains on 2 L per nasal cannula with O2 sat of 93%. No signs of respiratory distress noted or use of accessory muscles. On 06/02/2017 patient is seen in follow-up. She had undergone left thoracentesis by Dr. Curtis this morning with the drainage of 1000 mL of bloody pleural effusion without any complications. She tolerated the procedure very well. Follow-up chest x-ray showed no evidence of any pneumothorax. The fluid was not sent for analysis knowing that the diagnosis of malignancy was already established from the fluid from the previous thoracentesis. Lung sounds are positive for bibasilar crackles. Oxygenation remained stable on 2 L per nasal cannula with O2 sat 96%. She has been afebrile, she hasn't had any further episodes of vomiting since yesterday morning. She is tolerating clear liquid diet, although her appetite remains extremely poor. Her pain is better controlled with [place], and transdermal patch fentanyl. Continue with IV hydration, antiemetics and pain management. Oncology input was noted and appreciated. On 06/03/2017 the patient was seen again today in follow-up on the regular medical floor. She is status post left thoracentesis of approximately 1 L of bloody pleural effusion fluid returned. She is breathing easier today as compared to yesterday. She is maintaining good O2 saturations in the 90s on room air. She's been hemodynamically stable. Afebrile. She still has ongoing issues with abdominal discomfort and nausea. No leukocytosis. Hemoglobin 8.2. Creatinine 0.51. She is being followed by oncology. She was resumed on her Votrient. Objective - Vital Signs Vital signs: Vital Signs Temp 97.8 F 06/03/17 08:30 Pulse 93 06/03/17 10:31 Resp 18 06/03/17 10:31 BP 137/87 06/03/17 08:30 Pulse Ox 93 L 06/03/17 08:30 Intake & Output 06/02/17 06/03/17 06/03/17 18:59 06:59 18:59 Intake Total 1310 300 Output Total 3 2 Balance 1307 298 Weight 67.585 kg Intake: Oral 1310 300 Output: Stool 3 1 Urine/Stool Mix 1 Other: Voiding Method Toilet Toilet # Voids 2 2 # Bowel Movements 1 - Exam - Constitutional General appearance: no acute distress, thin - EENT Eyes: PERRLA, dentition normal ENT: NA/AT Ears: bilateral: normal - Neck Neck: normal ROM Carotids: bilateral: upstroke normal Thyroid: bilateral: normal size - Respiratory Respiratory: left: dullness, bilateral: diminished - Cardiovascular Rhythm: regular Heart sounds: normal: S1, S2 ankle Peripheral Edema: absent: None foot Peripheral Edema: absent: None - Gastrointestinal General gastrointestinal: decreased bowel sounds, no organomegaly, soft, no tenderness - Integumentary Integumentary: normal turgor, pale - Neurologic Neurologic: CNII-XII intact - Musculoskeletal Musculoskeletal: generalized weakness, strength equal bilaterally - Psychiatric Psychiatric: A&O x's 3, appropriate affect, intact judgment & insight - Labs CBC & Chem 7: 06/03/17 07:09 06/03/17 07:09 Labs: Abnormal Lab Results - Last 24 Hours (Table) 06/02/17 06/03/17 06/03/17 Range/Units 20:05 07:01 07:09 RBC 3.55 L (3.80-5.40) m/uL Hgb 8.2 L (11.4-16.0) gm/dL Hct 28.1 L (34.0-46.0) % MCV 79.3 L (80.0-100.0) fL MCH 23.2 L (25.0-35.0) pg MCHC 29.2 L (31.0-37.0) g/dL Plt Count 502 H (150-450) k/uL Lymphocytes # 0.9 L (1.0-4.8) k/uL Sodium (137-145) mmol/L BUN (7-17) mg/dL Creatinine (0.52-1.04) mg/dL Glucose (74-99) mg/dL POC Glucose (mg/dL) 129 H 162 H (75-99) mg/dL Calcium (8.4-10.2) mg/dL 06/03/17 06/03/17 Range/Units 07:09 12:05 RBC (3.80-5.40) m/uL Hgb (11.4-16.0) gm/dL Hct (34.0-46.0) % MCV (80.0-100.0) fL MCH (25.0-35.0) pg MCHC (31.0-37.0) g/dL Plt Count (150-450) k/uL Lymphocytes # (1.0-4.8) k/uL Sodium 136 L (137-145) mmol/L BUN 2 L (7-17) mg/dL Creatinine 0.51 L (0.52-1.04) mg/dL Glucose 151 H (74-99) mg/dL POC Glucose (mg/dL) 121 H (75-99) mg/dL Calcium 8.0 L (8.4-10.2) mg/dL Assessment and Plan Assessment: Assessment: #1. Intractable nausea and vomiting, despite antiemetics. CT abdomen and pelvis from 05/31/2017 shows evidence of tumor spread of a large left renal cell neoplasm causing mass effect and SMA, left renal artery, and left renal vein as well as left adrenal gland and causing elevation in the left hemidiaphragm #2. Acute hypoxic respiratory failure related to a malignant large left pleural effusion, status post left thoracentesis on 06/02/[address] Curtis with aspiration of 1000 mL of bloody pleural fluid. #3. Hyponatremia, sodium is 136, likely due to hypovolemia due to decreased oral intake and nausea and vomiting, IV 0.9 at 100 ml/hr is infusing at 100 ml/ hr #3. Severe generalized pain, pain management consult appreciated, currently on fentanyl transdermal patch and [place] #4. Protein calorie malnutrition, due to decreased intake and intractable nausea and vomiting. 40 pound weight loss in the last 3 months. #5. History of asthma, not on any maintenance inhalers and medications #6. Diabetes mellitus type 2 #7. History of GERD #8. Hyperlipidemia #9. Hypothyroidism #10. Osteoarthritis Plan: The patient was seen and evaluated by Dr. Curtis. She is improved from the pulmonary standpoint. She is maintaining good O2 saturations in the 90s on room air. We will follow the patient on as-needed basis. I, the cosigning physician, have performed a history and physical examination on the patient. Lung sounds with few scattered rhonchi diminished in the left posterior base.. Maintaining good O2 saturations in the 90s on room air. I have discussed the assessment and plan of care with my nurse practitioner, Liane Villegas. I attest the above documented note as dictated by her.
--- NOTE | 2017-06-03 15:52 | P.PN ---
Subjective Progress Note Date: 06/03/17 Progress note being dictated for Dr. Guardado Interval history: This a 42-year-old female admitted with acute nausea vomiting intractable pain, possible acute gastritis, left pleural effusion, hyponatremia in a patient recently diagnosed with renal cell carcinoma with metastasis. Maintained on IV fluids with sodium improving, up to 134. Falling asleep during assessment. Chest ultrasound marked bilateral sides for potential thoracentesis, moderate size left pleural effusion confirmed with only smaller right pleural effusion. Evaluated by pulmonary and scheduled for thoracentesis. Hemoglobin 8.3. Maintaining O2 sats in the mid 90s on 2 L nasal cannula. Afebrile. 06/02/2017 maintained on IV fluid hydration, nausea and pain improving.just completed left thoracentesis at bedside with pulmonary, 1 L of bloody pleural fluid obtained. Tolerated well. Postprocedure chest x-ray reporting improvement in left-sided pleural effusion with no pneumothorax reported. States improved breathing. Denies chest pain, palpitations or increased shortness of breath. Continue O2 sats in the 90s on 2 L nasal cannula. Afebrile. 06/03/2017complaining of nausea and vomiting this morning.diet intake poor. Declining option of PEG tube for nutrition.status post left thoracentesis yesterday with 1 L of bloody pleural drainage removed, cultures pending. maintaining O2 sats in the mid 90s on room air. Afebrile. Breathing improved, pulmonary now following prn. Objective - Vital Signs Vital signs: Vital Signs Temp 98.1 F 06/03/17 14:25 Pulse 93 06/03/17 14:25 Resp 18 06/03/17 14:25 BP 136/82 06/03/17 14:25 Pulse Ox 90 L 06/03/17 14:25 Intake & Output 06/02/17 06/03/17 06/03/17 18:59 06:59 18:59 Intake Total 1310 300 Output Total 3 2 Balance 1307 298 Weight 67.585 kg Intake: Oral 1310 300 Output: Stool 3 1 Urine/Stool Mix 1 Other: Voiding Method Toilet Toilet # Voids 2 2 1 # Bowel Movements 1 - Exam PHYSICAL EXAM: VITAL SIGNS: [As above] GENERAL: Sitting up in bed, no acute distress, HEENT: Conjunctivae normal. eyes normal. NECK: No JVD. No thyroid enlargement. No LNs CARDIOVASCULAR: S1, S2 muffled. No murmur RESPIRATION: Breath sounds diminished in the bases,no wheezing, no crackles ABDOMEN: Soft, mild diffuse tenderness . No guarding. no masses palpable.Bowel sounds heard. LEGS: No edema. no swelling PSYCHIATRY: Alert and oriented -3, mood and affect normal. NERVOUS SYSTEM: Cranial N 2-12 grossly normal. Moves all 4 limbs. Diffuse weakness No focal deficits. No sensory deficit. Skin: no ulcer no rash Joints: No active swelling. No inflammation. Lymphatic system. No LN neck axilla or groin. - Labs CBC & Chem 7: 06/03/17 07:09 06/03/17 07:09 Labs: Abnormal Lab Results - Last 24 Hours (Table) 06/02/17 06/03/17 06/03/17 Range/Units 20:05 07:01 07:09 RBC 3.55 L (3.80-5.40) m/uL Hgb 8.2 L (11.4-16.0) gm/dL Hct 28.1 L (34.0-46.0) % MCV 79.3 L (80.0-100.0) fL MCH 23.2 L (25.0-35.0) pg MCHC 29.2 L (31.0-37.0) g/dL Plt Count 502 H (150-450) k/uL Lymphocytes # 0.9 L (1.0-4.8) k/uL Sodium (137-145) mmol/L BUN (7-17) mg/dL Creatinine (0.52-1.04) mg/dL Glucose (74-99) mg/dL POC Glucose (mg/dL) 129 H 162 H (75-99) mg/dL Calcium (8.4-10.2) mg/dL 06/03/17 06/03/17 Range/Units 07:09 12:05 RBC (3.80-5.40) m/uL Hgb (11.4-16.0) gm/dL Hct (34.0-46.0) % MCV (80.0-100.0) fL MCH (25.0-35.0) pg MCHC (31.0-37.0) g/dL Plt Count (150-450) k/uL Lymphocytes # (1.0-4.8) k/uL Sodium 136 L (137-145) mmol/L BUN 2 L (7-17) mg/dL Creatinine 0.51 L (0.52-1.04) mg/dL Glucose 151 H (74-99) mg/dL POC Glucose (mg/dL) 121 H (75-99) mg/dL Calcium 8.0 L (8.4-10.2) mg/dL Assessment and Plan Plan: 1. Acute nausea, vomiting, intractable, rule out acute gastritis 2. Rule out narcotic overdose;pain management as per pain management services 3. Left pleural effusion, status post left thoracentesis 4. Renal cell carcinoma with metastasis, supposed to be on chemo 5. Hyponatremia 6. Anemia, microcytic secondary to chronic blood loss 7. Attention deficit disorder/attention deficit hyperactivity disorder 8. Anxiety, depression 9. Diabetes mellitus type 2 10. Gastroesophageal reflux disease Plan: Continue on current medication regime ,monitoring and symptomatic treatment. pleural cultures pending. Discharge planning in progress pending clearance from oncology. Prognosis guarded given multiple complex medical issues. Further recommendations to follow. The impression and plan of care has been dictated as directed. : I performed a history and examination of this patient, discussed the same with the dictator. I agree with the dictator's note ,documented as a scribe. Any additional findings or plans will be noted.
[2017-06-03 16:58] LABS: Glucose,Whole Blood 96 mg/dL (75-99)
[2017-06-03 20:35] LABS: Glucose,Whole Blood 115 mg/dL (75-99)
[2017-06-04] MEDS: HYDROcodone/APAP 5-325MG 1 EACH TAB PO PRN ×3 (02:54→21:55)
[2017-06-04 07:10] LABS: Glucose,Whole Blood 113 mg/dL (75-99)
[2017-06-04] MEDS: METOCLOPRAMIDE ORAL SOLN 10 MG/10 ML CUP PO SCH ×4 (07:36→20:37)
[2017-06-04] MEDS: ONDANSETRON 4 MG/2 ML VIAL IVP PRN ×2 (07:37→15:12)
[2017-06-04 08:02] LABS: Anisocytosis Slight; Basophils % (A) 0 %; CH 22.5; CHCM 29.5; Eosinophils # (A) 0.2 k/uL (0-0.7); Eosinophils % (A) 3 %; HDW 3.84; HGB 8.6 gm/dL (11.4-16.0); Hypochromasia Marked; Luc # (Auto) 0.11; Luc % (Auto) 2; Lymphocytes # (A) 1.7 k/uL (1.0-4.8); Lymphocytes % (A) 27 %; MCH 22.7 pg (25.0-35.0); MCHC 29.6 g/dL (31.0-37.0); MCV 76.6 fL (80.0-100.0); Mean Platelet Volume 6.7; Microcytosis Slight; Monocytes # (A) 0.5 k/uL (0-1.0); Monocytes % (A) 9 %; Neutrophils # (A) 3.7 k/uL (1.3-7.7); Neutrophils % (A) 59 %; Poikilocytosis Slight; RBC 3.79 m/uL (3.80-5.40); RDW 16.8 % (11.5-15.5); WBC 6.2 k/uL (3.8-10.6); WBC (Perox) 6.81
[2017-06-04] MEDS: glipiZIDE 5 MG TAB PO SCH (08:06)
[2017-06-04] MEDS: CITALOPRAM HYDROBROMIDE 20 MG TAB PO SCH (08:06)
[2017-06-04 08:12] LABS: Anion Gap 7 mmol/L; Blood Urea Nitrogen <2 mg/dL (7-17); Calcium 8.1 mg/dL (8.4-10.2); Carbon Dioxide 29 mmol/L (22-30); Chloride 101 mmol/L (98-107); Glucose 108 mg/dL (74-99); Non-African American GFR(MDRD) >60 (>60 ml/min/1.73 sqM); Potassium 3.5 mmol/L (3.5-5.1); Sodium 137 mmol/L (137-145)
[2017-06-04] MEDS: VOTRIENT PO SCH (08:12)
[2017-06-04] MEDS: SCOPOLAMINE 1.5MG/72HR PATCH TRANSDERM SCH (08:25)
[2017-06-04] MEDS: PANTOPRAZOLE 40 MG/10 ML VIAL IVP SCH ×2 (08:40→20:37)
[2017-06-04] MEDS: HEPARIN SODIUM,PORCINE 5,000 UNIT/ML 1 ML VIAL SQ SCH ×2 (08:41→20:37)
[2017-06-04] MEDS: ALPRAZolam 0.25 MG TAB PO SCH ×3 (08:52→21:56)
[2017-06-04] MEDS: TRIMETHOBENZAMIDE 300 MG CAP PO SCH ×4 (08:52→21:56)
[2017-06-04] MEDS: SODIUM CHLORIDE 0.9% 1,000 ML IV SCH ×2 (10:53→22:40)
[2017-06-04 12:07] LABS: Glucose,Whole Blood 128 mg/dL (75-99)
[2017-06-04 17:00] LABS: Glucose,Whole Blood 103 mg/dL (75-99)
[2017-06-04 20:48] LABS: Glucose,Whole Blood 108 mg/dL (75-99)
[2017-06-04] MEDS ORDERED: HYDROmorphone 1 MG/ML 1 ML SYRINGE IVP PRN (21:32)
--- NOTE | 2017-06-05 00:18 | P.PN ---
Subjective Progress Note Date: 06/04/17 Principal diagnosis: Nausea vomiting Interval history: This a 42-year-old female with a known history of renal cell carcinoma on chemotherapy admitted with acute nausea vomiting intractable pain, possible acute gastritis, left pleural effusion, hyponatremia in a patient recently diagnosed with renal cell carcinoma with metastasis. Maintained on IV fluids with sodium improving, up to 134. Falling asleep during assessment. Chest ultrasound marked bilateral sides for potential thoracentesis, moderate size left pleural effusion confirmed with only smaller right pleural effusion. Evaluated by pulmonary and scheduled for thoracentesis. Hemoglobin 8.3. Maintaining O2 sats in the mid 90s on 2 L nasal cannula. Afebrile. 06/02/2017 maintained on IV fluid hydration, nausea and pain improving.just completed left thoracentesis at bedside with pulmonary, 1 L of bloody pleural fluid obtained. Tolerated well. Postprocedure chest x-ray reporting improvement in left-sided pleural effusion with no pneumothorax reported. States improved breathing. Denies chest pain, palpitations or increased shortness of breath. Continue O2 sats in the 90s on 2 L nasal cannula. Afebrile. 06/03/2017complaining of nausea and vomiting this morning.diet intake poor. Declining option of PEG tube for nutrition.status post left thoracentesis yesterday with 1 L of bloody pleural drainage removed, cultures pending. maintaining O2 sats in the mid 90s on room air. Afebrile. Breathing improved, pulmonary now following prn. 06/04/2017 Patient is tolerating liquid diet but is still complaining of nausea. No episodes of vomiting. Shortness of breath improved. Abdominal pain improved as well. Her diet will be advanced as tolerated. Otherwise no fever no chills. Patient is improving clinically. Patient complaining of constipation now. current medications reviewed Objective - Vital Signs Vital signs: Vital Signs Temp 97.6 F 06/04/17 15:11 Pulse 84 06/04/17 15:11 Resp 18 06/04/17 15:11 BP 168/99 06/04/17 22:25 Pulse Ox 87 L 06/04/17 15:11 Intake & Output 06/04/17 06/04/17 06/05/17 06:59 18:59 06:59 Intake Total Output Total 2 Balance -2 Weight Intake: Oral Output: Stool 2 Other: Voiding Method Toilet # Voids 1 - Exam PHYSICAL EXAMINATION: Patient is lying in the bed comfortably, no acute distress, awake alert and oriented.. HEENT: Normocephalic. Neck is supple. Pupils reactive. Nostrils clear. Oral cavity is moist. Ears reveal no drainage. Neck reveals no JVD, carotid bruits, or thyromegaly. CHEST EXAMINATION: Trachea is central. Symmetrical expansion. Decreased air entry bilateral basally. Minimal crackles. No wheezing.. CARDIAC: Normal S1, S2 with no gallops. No murmurs ABDOMEN: Soft. Distended. Mild diffuse tenderness. Bowel sounds normal. No organomegaly. No abdominal bruits. Extremities: reveal no edema. No clubbing or cyanosis Neurologically awake, alert, oriented x3 with well-coordinated movements. No focal deficits noted Skin: No rash or skin lesions. Psychiatric: Operative. Nonsuicidal Musculoskeletal: No joint swelling or deformity. Normal range of motion. - Labs CBC & Chem 7: 06/04/17 07:32 06/04/17 07:32 Labs: Abnormal Lab Results - Last 24 Hours (Table) 06/04/17 06/04/17 06/04/17 Range/Units 07:07 07:32 07:32 RBC 3.79 L (3.80-5.40) m/uL Hgb 8.6 L (11.4-16.0) gm/dL Hct 29.0 L (34.0-46.0) % MCV 76.6 L (80.0-100.0) fL MCH 22.7 L (25.0-35.0) pg MCHC 29.6 L (31.0-37.0) g/dL RDW 16.8 H (11.5-15.5) % Plt Count 520 H (150-450) k/uL BUN <2 L (7-17) mg/dL Glucose 108 H (74-99) mg/dL POC Glucose (mg/dL) 113 H (75-99) mg/dL Calcium 8.1 L (8.4-10.2) mg/dL 06/04/17 06/04/17 06/04/17 Range/Units 12:00 16:57 20:42 RBC (3.80-5.40) m/uL Hgb (11.4-16.0) gm/dL Hct (34.0-46.0) % MCV (80.0-100.0) fL MCH (25.0-35.0) pg MCHC (31.0-37.0) g/dL RDW (11.5-15.5) % Plt Count (150-450) k/uL BUN (7-17) mg/dL Glucose (74-99) mg/dL POC Glucose (mg/dL) 128 H 103 H 108 H (75-99) mg/dL Calcium (8.4-10.2) mg/dL Assessment and Plan Assessment: 1. Acute nausea, vomiting, intractable, possible acute gastritis 2. Rule out narcotic overdose;pain management as per pain management services 3. Left pleural effusion, status post left thoracentesis 4. Renal cell carcinoma with metastasis, supposed to be on chemo 5. Hyponatremia 6. Anemia, microcytic secondary to chronic blood loss 7. Attention deficit disorder/attention deficit hyperactivity disorder 8. Anxiety, depression 9. Diabetes mellitus type 2 10. Gastroesophageal reflux disease Plan: Continue on current medication regime ,monitoring and symptomatic treatment. pleural cultures pending. Discharge planning in progress pending clearance from oncology. Prognosis guarded given multiple complex medical issues. Further recommendations to follow.
[2017-06-05] MEDS: ONDANSETRON 4 MG/2 ML VIAL IVP PRN (02:45)
[2017-06-05] MEDS: HYDROcodone/APAP 5-325MG 1 EACH TAB PO PRN ×2 (02:56→12:07)
[2017-06-05] MEDS: SODIUM CHLORIDE 0.9% 1,000 ML IV SCH ×2 (06:53→11:06)
[2017-06-05 07:21] LABS: Glucose,Whole Blood 99 mg/dL (75-99)
[2017-06-05 07:30] VITALS: BP 170/97; PULSE 74; RESP 16; TEMP 97.5
[2017-06-05] MEDS: METOCLOPRAMIDE ORAL SOLN 10 MG/10 ML CUP PO SCH ×3 (07:34→14:59)
[2017-06-05] MEDS: PANTOPRAZOLE 40 MG/10 ML VIAL IVP SCH (08:47)
[2017-06-05] MEDS: glipiZIDE 5 MG TAB PO SCH (08:47)
[2017-06-05] MEDS: TRIMETHOBENZAMIDE 300 MG CAP PO SCH ×2 (08:48→11:06)
[2017-06-05] MEDS: ALPRAZolam 0.25 MG TAB PO SCH ×2 (08:54→14:59)
[2017-06-05] MEDS: HEPARIN SODIUM,PORCINE 5,000 UNIT/ML 1 ML VIAL SQ SCH (08:56)
[2017-06-05] MEDS ORDERED: ONDANSETRON ODT 8 MG TAB.RAPDIS PO PRN (09:33)
[2017-06-05] MEDS: VOTRIENT PO SCH (11:05)
[2017-06-05] MEDS: CITALOPRAM HYDROBROMIDE 20 MG TAB PO SCH (11:06)
[2017-06-05 11:26] LABS: Glucose,Whole Blood 131 mg/dL (75-99)
--- NOTE | 2017-06-06 00:19 | P.DS ---
Providers Date of admission: 05/31/17 15:05 Expected date of discharge: 06/05/17 Attending physician: Kasey Childress Consults: 05/31/17 15:06 Consult Physician Routine Consulting Provider: Earl Curtis Consult Reason/Comments: Pleural Effusion Do you want consulting provider notified?: Yes Consult Physician Routine Consulting Provider: Keshawn Spivey Consult Reason/Comments: Renal Cell CA Do you want consulting provider notified?: Yes Primary care physician: Stated None Hospital Course: Discharge diagnosis 1. Acute nausea, vomiting, intractable, possible acute gastritis 2. Rule out narcotic overdose;pain management as per pain management services 3. Left pleural effusion, status post left thoracentesis 4. Renal cell carcinoma with metastasis, supposed to be on chemo 5. Hyponatremia 6. Anemia, microcytic secondary to chronic blood loss 7. Attention deficit disorder/attention deficit hyperactivity disorder 8. Anxiety, depression 9. Diabetes mellitus type 2 10. Gastroesophageal reflux disease Hospital course Interval history: This a 42-year-old female with a known history of renal cell carcinoma on chemotherapy admitted with acute nausea vomiting intractable pain, possible acute gastritis, left pleural effusion, hyponatremia in a patient recently diagnosed with renal cell carcinoma with metastasis. Maintained on IV fluids with sodium improving, up to 134. Falling asleep during assessment. Chest ultrasound marked bilateral sides for potential thoracentesis, moderate size left pleural effusion confirmed with only smaller right pleural effusion. Evaluated by pulmonary and scheduled for thoracentesis. Hemoglobin 8.3. Maintaining O2 sats in the mid 90s on 2 L nasal cannula. Afebrile. 06/02/2017 maintained on IV fluid hydration, nausea and pain improving.just completed left thoracentesis at bedside with pulmonary, 1 L of bloody pleural fluid obtained. Tolerated well. Postprocedure chest x-ray reporting improvement in left-sided pleural effusion with no pneumothorax reported. States improved breathing. Denies chest pain, palpitations or increased shortness of breath. Continue O2 sats in the 90s on 2 L nasal cannula. Afebrile. 06/03/2017complaining of nausea and vomiting this morning.diet intake poor. Declining option of PEG tube for nutrition.status post left thoracentesis yesterday with 1 L of bloody pleural drainage removed, cultures pending. maintaining O2 sats in the mid 90s on room air. Afebrile. Breathing improved, pulmonary now following prn. 06/04/2017 Patient is tolerating liquid diet but is still complaining of nausea. No episodes of vomiting. Shortness of breath improved. Abdominal pain improved as well. Her diet will be advanced as tolerated. Otherwise no fever no chills. Patient is improving clinically. Patient complaining of constipation now. 06/05/2017 Patient's nausea vomiting improved. Tolerating liquid diet. Patient advised to take smaller quantities at frequent intervals. Patient has been ambulating in the hallway with support. No complaints of abdominal pain. Shortness of breath improved. Saturating well on room air. Patient is stable to be discharged home and follow with her primary care physician and oncology. Discharge physical examination was done Patient Condition at Discharge: Stable Plan - Discharge Summary Discharge Rx Participant: No New Discharge Prescriptions: Continue Citalopram Hydrobromide [CeleXA] 40 mg PO DAILY Ketotifen Fumarate [Alaway] 1 drop BOTH EYES DAILY PRN PRN Reason: Itching glipiZIDE [Glucotrol] 5 mg PO DAILY Dronabinol [Marinol] 2.5 mg PO AC-BID #60 capsule Scopolamine 1.5MG/72Hr Patch [TransDerm Scop] 1 patch TRANSDERM Q72H #10 patch Metoclopramide [Reglan] 10 mg PO ACHS #120 tab Ondansetron [Zofran] 4 mg PO Q8HR PRN #90 tab PRN Reason: Nausea Pantoprazole [Protonix] 40 mg PO AC-BID #60 tablet. HYDROcodone/APAP 5-325MG [[place] 5-325] 1 tab PO Q4HR PRN #60 tab PRN Reason: Breakthrough Pain Trimethobenzamide [Tigan] 300 mg PO QID #120 capsule ALPRAZolam [Xanax] 0.25 mg PO TID #90 tab fentaNYL 25MCG/HR PATCH [Duragesic 25MCG/HR] 2 patch TRANSDERM Q72H fentaNYL 50MCG/HR PATCH [Duragesic 50MCG/HR] 50 mcg TRANSDERM DIRECTED Discharge Medication List Citalopram Hydrobromide [CeleXA] 40 mg PO DAILY 02/05/17 [History] Ketotifen Fumarate [Alaway] 1 drop BOTH EYES DAILY PRN 02/05/17 [History] glipiZIDE [Glucotrol] 5 mg PO DAILY 03/17/17 [History] Dronabinol [Marinol] 2.5 mg PO AC-BID #60 capsule 05/10/17 [Rx] HYDROcodone/APAP 5-325MG [[place] 5-325] 1 tab PO Q4HR PRN #60 tab 05/10/17 [Rx] Metoclopramide [Reglan] 10 mg PO ACHS #120 tab 05/10/17 [Rx] Ondansetron [Zofran] 4 mg PO Q8HR PRN #90 tab 05/10/17 [Rx] Pantoprazole [Protonix] 40 mg PO AC-BID #60 tablet.dr 05/10/17 [Rx] Scopolamine 1.5MG/72Hr Patch [TransDerm Scop] 1 patch TRANSDERM Q72H #10 patch 05/10/17 [Rx] ALPRAZolam [Xanax] 0.25 mg PO TID #90 tab 05/27/17 [Rx] Trimethobenzamide [Tigan] 300 mg PO QID #120 capsule 05/27/17 [Rx] fentaNYL 25MCG/HR PATCH [Duragesic 25MCG/HR] 2 patch TRANSDERM Q72H 05/31/17 [ History] fentaNYL 50MCG/HR PATCH [Duragesic 50MCG/HR] 50 mcg TRANSDERM DIRECTED [History] Follow up Appointment(s)/Referral(s): [facility], [NON-STAFF] - 1 Week Patient Instructions/Handouts: Acute Nausea and Vomiting (DC), Chemo Induced Nausea and Vomiting (DC) Activity/Diet/Wound Care/Special Instructions: Diet: Clear liquids, as tolerated Activity: Ambulate as tolerated 3-4 times a day Discharge Disposition: HOME WITH HOME HEALTH SERVICES
== END 2017-06-05 15:20 | disposition home health service (06) | DRG 241 ==
LOC: EC 11:26 → 5MS5E 15:05
PROVIDERS: ADMIT Hospitalist; ATTEND Hospitalist
PROC: 0W9B3ZZ Drainage of Left Pleural Cavity, Percutaneous Approach (ICD-10-PCS; principal; 2017-06-02)
DX: K29.00 Acute gastritis without bleeding (principal); J96.01 Acute respiratory failure with hypoxia; J91.0 Malignant pleural effusion; E46 Unspecified protein-calorie malnutrition; C77.9 Secondary and unspecified malignant neoplasm of lymph node, unspecified; C64.9 Malignant neoplasm of unspecified kidney, except renal pelvis; E11.40 Type 2 diabetes mellitus with diabetic neuropathy, unspecified; E86.1 Hypovolemia; E87.1 Hypo-osmolality and hyponatremia; G89.3 Neoplasm related pain (acute) (chronic); F32.9 Major depressive disorder, single episode, unspecified; E03.9 Hypothyroidism, unspecified; D50.0 Iron deficiency anemia secondary to blood loss (chronic); E78.5 Hyperlipidemia, unspecified; F41.9 Anxiety disorder, unspecified; F90.9 Attention-deficit hyperactivity disorder, unspecified type; J45.909 Unspecified asthma, uncomplicated; J98.11 Atelectasis; K21.9 Gastro-esophageal reflux disease without esophagitis; K29.50 Unspecified chronic gastritis without bleeding; K58.9 Irritable bowel syndrome, unspecified; M19.90 Unspecified osteoarthritis, unspecified site; R62.7 Adult failure to thrive; G43.909 Migraine, unspecified, not intractable, without status migrainosus; G89.29 Other chronic pain; K42.9 Umbilical hernia without obstruction or gangrene; K64.9 Unspecified hemorrhoids; N83.209 Unspecified ovarian cyst, unspecified side; R01.1 Cardiac murmur, unspecified; K59.00 Constipation, unspecified; L30.9 Dermatitis, unspecified; T40.601A Poisoning by unspecified narcotics, accidental (unintentional), initial encounter; Z79.84 Long term (current) use of oral hypoglycemic drugs; Z79.899 Other long term (current) drug therapy; Z79.891 Long term (current) use of opiate analgesic; Z88.5 Allergy status to narcotic agent; Z68.24 Body mass index [BMI] 24.0-24.9, adult; Z80.9 Family history of malignant neoplasm, unspecified; Y92.009 Unspecified place in unspecified non-institutional (private) residence as the place of occurrence of the external cause
CPT/HCPCS: 36415; 71010; 71020; 74177; 76604; 80048; 80053; 81001; 83690; 83735; 85025; 93005; 94760; 96361; 96374; 96375; 99285

== ENCOUNTER 2017-06-23 22:18 | Observation (INO) | payer OTHER ==
[2017-06-24 00:30] LABS: Glucose,Whole Blood 245 mg/dL (75-99)
[2017-06-24 00:51] VITALS: BMI 21.2
[2017-06-24] MEDS ORDERED: METOCLOPRAMIDE 10 MG TAB PO PRN (06:38)
[2017-06-24] MEDS: HYDROmorphone 2 MG/ML 1 ML SYRINGE IVP PRN ×5 (06:52→22:53)
[2017-06-24] MEDS: PROCHLORPERAZINE 10 MG TAB PO SCH ×4 (07:02→23:37)
[2017-06-24] MEDS: glipiZIDE 5 MG TAB PO SCH (08:15)
[2017-06-24] MEDS: ONDANSETRON 4 MG TAB PO SCH ×2 (09:28→19:49)
[2017-06-24] MEDS: SODIUM CHLORIDE 0.9% 1,000 ML IV SCH (10:02)
[2017-06-24] MEDS: INSULIN ASPART 100 UNIT/ML 1 ML 10 ML VIAL SQ SCH ×3 (12:26→19:49)
[2017-06-24 12:36] LABS: Glucose,Whole Blood 124 mg/dL (75-99)
--- NOTE | 2017-06-24 12:52 | XR ---
EXAMINATION TYPE: XR chest 1V portable DATE OF EXAM: 06/24/2017 Comparison: 06/02/2017 Clinical History: 42-year-old female follow-up pleural effusion Findings: Left heart margin obscured by adjacent pleural-parenchymal disease. Increased, now moderate to large left pleural effusion. Mild interstitial prominence is unchanged. Impression: Increased, now moderate to large left pleural effusion.
[2017-06-24] MEDS ORDERED: KETOTIFEN 0.025% OPHTH DROPS 5 ML BTL BOTH EYES PRN (14:12)
--- NOTE | 2017-06-24 15:23 | P.CNPUL ---
History of Present Illness Consult date: 06/24/17 Reason for consult: dyspnea, pleural effusion History of present illness: A 42-year-old female patient was referred back to our hospital because of worsening shortness of breath. The patient is very well-known to me for metastatic renal cell carcinoma. The patient was seen approximately 3 weeks ago here in the hospital for increased shortness of breath and at that time the patient had thoracentesis of the left lung to give the patient some symptomatic relief. The pleural fluid was positive for carcinoma, consistent with metastatic disease. The patient was referred back to the hospital because of worsening shortness of breath. At this point in time she has a moderate to large left-sided pleural effusion and she is requesting thoracentesis. This patient has been recently diagnosed metastatic renal cell carcinoma, She was initially worked up by urology Dr. Haile who identified an unresectable infiltrating mass and biopsied the lymph nodes that were positive for poorly differentiated renal cell carcinoma. Patient was then seen by Dr. Spivey in consultation on 05/01/2017 and was supposed to start oral Pazopanib, but due to the intractable nausea and vomiting has not been able to start it yet. Patient is receiving [place], and fentanyl transdermal patch at home for pain control, as well as Protonix, scopolamine patch, Zofran, Compazine and Reglan. She states she has lost over 40 pounds in the last 3 months, has been able to tolerate oral intake very well due to ongoing nausea and vomiting. CT of abdomen and pelvis on 05/31/2017 showed moderate to large sized left pleural effusion with associated compressive atelectasis and elevated left hemidiaphragm. Large left renal cell neoplasm with local medial and superior retroperitoneal spread causing mass effect on SMA, left renal artery and left renal vein as well as left adrenal gland was redemonstrated on the CT of the abdomen. Some progression in the tumor spread was felt to be present based on the elevation of the left hemidiaphragm and increasing left upper quadrant ascites. Review of Systems All systems: Constitutional: Denies chills, Denies fever, and the patient has been losing weight progressively and the patient has lost more than 50 pounds of weight and she has diminished appetite. She has chronic nausea. Eyes: denies blurred vision, denies pain Ears, nose, mouth and throat: Denies headache, Denies sore throat Cardiovascular: Denies chest pain, significant shortness of breath to the point where the patient is unable to perform activities of daily life Respiratory: Denies cough, no hemoptysis and pleurisy and the patient has progressive dyspnea. Gastrointestinal: Denies abdominal pain, Denies diarrhea, but the patient has occasional abdominal discomfort with chronic nausea and episodes of emesis. Genitourinary: Denies dysuria, Denies hematuria Musculoskeletal: Denies myalgias Integumentary: Denies pruritus, Denies rash Neurological: Denies numbness, Denies weakness Psychiatric: Denies anxiety, Denies depression Endocrine: Denies fatigue, obvious weight changes based on her underlying malignancy. Past Medical History Past Medical History: Asthma, Cancer, Diabetes Mellitus, Eye Disorder, GERD/ Reflux, Hyperlipidemia, Osteoarthritis (OA), Skin Disorder, Thyroid Disorder Additional Past Medical History / Comment(s): Metastatic renal cell carcinoma, malignant left-sided pleural effusion, chronic nausea, degenerative arthritis, umbilical hernia, peripheral neuropathy, IBS, migraine, irritable bowel syndrome , ovarian cysts, history of a sacral bone fracture 2013, eczema, hemorrhoids, chronic constipation, chronic cardiac murmur, hyperlipidemia, hypothyroidism, diabetes mellitus. History of Any Multi-Drug Resistant Organisms: None Reported Past Surgical History: Section, Cholecystectomy, Uterine Ablation Additional Past Surgical History / Comment(s): minor surgery on imer great toes for ingroin toenails, kidney biopsy Past Anesthesia/Blood Transfusion Reactions: No Reported Reaction Past Psychological History: ADD/ADHD, Anxiety, Depression Smoking Status: Never smoker Past Alcohol Use History: None Reported Past Drug Use History: None Reported - Past Family History Mother Family Medical History: Cancer Additional Family Medical History / Comment(s): ALZHEIMER'S Father Family Medical History: Cancer Sister(s) Family Medical History: Cancer, Deep Vein Thrombosis (DVT) Medications and Allergies Home Medications Medication Instructions Recorded Confirmed Type Ketotifen Fumarate [Alaway] 1 drop BOTH EYES DAILY PRN 02/05/17 06/24/17 History glipiZIDE [Glucotrol] 5 mg PO DAILY 03/17/17 06/24/17 History ALPRAZolam [Xanax] 0.5 mg PO Q4H PRN 06/24/17 06/24/17 History Dilaudid 1mg/Ml 1 mg PO Q3H PRN 06/24/17 06/24/17 History Metoclopramide [Reglan] 10 mg PO Q6HR PRN 06/24/17 06/24/17 History Ondansetron [Zofran] 8 mg PO BID 06/24/17 06/24/17 History Pantoprazole Sodium [Protonix] 80 mg PO DAILY 06/24/17 06/24/17 History Prochlorperazine [Compazine] 10 mg PO Q6H 06/24/17 06/24/17 History fentaNYL 75MCG/HR PATCH [Duragesic 75 mcg TRANSDERM Q72H 06/24/17 06/24/17 History 75MCG/HR] Allergies Allergy/AdvReac Type Severity Reaction Status Date / Time morphine Allergy Mild Anaphylaxis Verified 06/24/17 11:48 Physical Exam Vitals: Vital Signs Temp Pulse Resp BP Pulse Ox 06/24/17 11:55 97 F L 106 H 20 111/71 98 06/24/17 08:00 98.2 F 106 H 20 105/70 91 L 06/24/17 04:00 97.5 F L 113 H 19 124/73 93 L 06/24/17 00:30 99.3 F 110 H 20 112/84 93 L 06/24/17 00:15 99.3 F 110 H 20 112/84 93 L Intake and Output 06/24/17 06/24/17 06/24/17 06:59 14:59 22:59 Intake Total 600 100 Output Total 100 Balance 500 100 Intake: IV 600 0.9 600 Oral 100 Output: Urine 100 Other: Voiding Method Toilet Bedside Commode # Voids 1 1 Weight 59.8 kg 59.8 kg Patient Weight 06/25/17 06:59 Weight 59.8 kg - Constitutional General appearance: no acute distress, thin - EENT Eyes: PERRLA, dentition normal ENT: NA/AT Ears: bilateral: normal - Neck Neck: normal ROM Carotids: bilateral: upstroke normal Thyroid: bilateral: normal size - Respiratory Respiratory: left: dullness, bilateral: diminished breath sounds bilaterally more so on the left lung base where there is obvious dullness to percussion. - Cardiovascular Rhythm: regular Heart sounds: normal: S1, S2 ankle Peripheral Edema: absent: None foot Peripheral Edema: absent: None - Gastrointestinal General gastrointestinal: decreased bowel sounds, no organomegaly, soft, no tenderness - Integumentary Integumentary: normal turgor, pale - Neurologic Neurologic: CNII-XII intact - Musculoskeletal Musculoskeletal: generalized weakness, strength equal bilaterally - Psychiatric Psychiatric: A&O x's 3, appropriate affect, intact judgment & insight Results - Laboratory Findings Abnormal lab findings: Abnormal Labs 06/24/17 06/24/17 00:28 12:24 POC Glucose (mg/dL) 245 H 124 H - Diagnostic Findings Chest x-ray: image reviewed Assessment and Plan Plan: Assessment 1 recurrent large malignant left-sided pleural effusion with secondary shortness of breath 2 acute hypoxic respiratory failure secondary to above 3 metastatic adenocarcinoma 4 protein calorie meditation and ongoing weight loss 5 chronic nausea with episodes of emesis secondary to underlying malignancy 6 diabetes mellitus 7 hypothyroidism 8 hyperlipidemia 9 osteoarthritis 10. Prognosis secondary to above-mentioned comorbidities Plan Discussed with the patient the need for a long-term situation such as insertion of a Pleurx catheter. She was not able to make a decision today. She wanted to proceed with thoracentesis to get immediate symptomatic relief. Based on that, I offered her a therapeutic thoracentesis and this will be done today to give this patient symptomatic relief. Down the road she is to be planning for a Pleurx catheter insertion which can give the patient the option of having felt drainage of the pleural fluid at home on outpatient basis. Long-term prognosis remains poor.
[2017-06-24] MEDS: IPRATROPIUM-ALBUTEROL 3 ML NEB INHALATION SCH ×2 (15:57→19:50)
[2017-06-24] MEDS ORDERED: IPRATROPIUM 0.5 MG/2.5 ML NEBU INHALATION SCH (16:00)
[2017-06-24] MEDS ORDERED: ALBUTEROL NEBULIZED 2.5 MG/3 ML INHALATION SCH (16:00)
--- NOTE | 2017-06-24 16:17 | HP ---
HISTORY AND PHYSICAL CHIEF COMPLAINT: Shortness of breath. HISTORY OF PRESENT ILLNESS: This 42-year-old woman with a past medical history of multiple medical problems, including recently diagnosed renal carcinoma with metastases, had multiple medical issues. The patient was apparently on palliative care previously. Currently the patient is complaining of increasing shortness of breath. The patient also had previous pleural aspirations. Because of increasing shortness of breath, the patient's family took her to [facility], from where the patient was directly transferred to [facility] for further evaluation and treatment. There is no history any fever, rigor or chills. No history of headache, loss of consciousness, seizures at this time. The chest x-ray shows significant left pleural effusion this time. The patient is followed by a family physician in the [place] area. PAST MEDICAL HISTORY: 1. History of renal cell carcinoma with metastases. 2. History of asthma. 3. Diabetes mellitus. 4. GERD. 5. Hyperlipidemia. 6. History of DJD. 7. Hypothyroidism. 8. History of ADD, ADHD. 9. History of anxiety. MEDICATIONS PRIOR TO ADMISSION: 1. Glipizide 5 mg p.o. daily. 2. Duragesic patch 75 mg q.72 hours. 3. Compazine 10 mg q.6 p.r.n. 4. Protonix 80 mg p.o. daily. 5. Zofran 8 mg p.o. b.i.d. 6. Reglan 10 mg q.6 p.r.n. 7. Alaway 1 drop both eyes daily p.r.n. 8. Dilaudid 1 mg q.3 p.r.n. 9. Xanax 0.5 mg q.4 p.r.n. ALLERGIES: MORPHINE. FAMILY HISTORY: History of cancer and dementia. SOCIAL HISTORY: No history of smoking. No history of alcohol intake. REVIEW OF SYSTEMS: ENT: No diminished vision. No diminished vision. CARDIOVASCULAR: No angina. Otherwise as mentioned earlier. GI: As mentioned earlier. : As mentioned earlier. NERVOUS SYSTEM: No numbness, weakness. ALLERGY/IMMUNOLOGY: No asthma or hayfever. MUSCULOSKELETAL: As mentioned earlier. HEMATOLOGY/ONCOLOGY: As mentioned earlier. ENDOCRINE: As mentioned earlier. CONSTITUTIONAL: As mentioned earlier. DERMATOLOGY: Negative. RHEUMATOLOGY: Negative. PSYCHIATRY: As mentioned earlier. PHYSICAL EXAMINATION: Patient is alert and oriented x3. Pulse 106, blood pressure 111/71, respiration 20, temperature 97 degrees, pulse ox 98% on 3 L. HEENT: Conjunctivae normal. Oral mucosa moist. NECK: No jugular venous distention. No carotid bruit. No lymph node enlargement. CARDIOVASCULAR SYSTEM: S1, S2 muffled. No S3. No S4. RESPIRATORY SYSTEM: Breath sounds diminished at the bases. Markedly diminished on the left side. Bilateral scattered rhonchi and crackles. ABDOMEN: Soft, obese. Diffuse distention present. LEGS: No edema. No swelling. NERVOUS SYSTEM: Higher functions as mentioned earlier. Moves all 4 limbs. No focal motor or sensory deficit. LYMPHATICS: No lymph node palpable in neck, axillae or groin. SKIN: No ulcer, rash, bleeding. LABS: Accu-Cheks 245, 124. ASSESSMENT: 1. Shortness of breath, possibly malignant left pleural effusion. 2. History of renal cell carcinoma with metastases. 3. History of nausea, vomiting, possibly multifactorial, with gastritis previously. 4. History of left pleural effusion and thoracocentesis. 5. History of asthma. 6. Diabetes mellitus, type 2. 7. Gastroesophageal reflux disease. 8. Hyperlipidemia. 9. Degenerative joint disease. \. 10.Hypothyroidism. 11.Attention deficit disorder/attention deficit hyperactivity disorder. 12.History of anxiety. RECOMMENDATIONS AND DISCUSSION: In this 42-year-old woman who presented with multiple complex medical issues, we will monitor the patient closely, continue the current medications, continue symptomatic treatment. Otherwise at this time I would recommend resuming the home medications. Continue with the fentanyl patch, also. I would recommend a chest x-ray STAT and also consult Dr. Curtis. Dr. Spivey also will be consulted. Repeat labs are requested. Symptomatic treatment will be provided. I would also recommend empiric bronchodilators. Will cut down the IV fluids to KVO level. The prognosis is guarded because of the multiple complex medical issues. Further recommendations to follow. Discussed with the patient, who understands and agrees. MMODL / IJN: [id number] /
[2017-06-24 16:55] LABS: Glucose,Whole Blood 135 mg/dL (75-99)
--- NOTE | 2017-06-24 17:17 | XR ---
EXAMINATION TYPE: XR chest 1V portable DATE OF EXAM: 06/24/2017 Comparison: 06/24/2017 Clinical History: 42-year-old female status post THORACENTESIS Findings: Heart is normal size. Aorta is normal limits. Mild interstitial prominence on the right is similar. T race right effusion may be present. There is a residual small left pleural effusion, significantly im proved from earlier today after thoracentesis. No pneumothorax. Impression: Small left pleural effusion remains, significantly improved following thoracentesis. No appreciable p neumothorax.
[2017-06-24] MEDS: HEPARIN SODIUM,PORCINE 5,000 UNIT/ML 1 ML VIAL SQ SCH (19:49)
[2017-06-24 20:12] LABS: Glucose,Whole Blood 185 mg/dL (75-99)
[2017-06-24 23:51] LABS: Hemoglobin A1C 7.1 % (4.0-6.0)
[2017-06-25] MEDS: HYDROmorphone 2 MG/ML 1 ML SYRINGE IVP PRN ×4 (01:39→12:28)
[2017-06-25] MEDS: ALPRAZolam 0.5 MG TAB PO PRN ×2 (01:39→17:25)
[2017-06-25] MEDS: INSULIN ASPART 100 UNIT/ML 1 ML 10 ML VIAL SQ SCH ×4 (06:32→21:43)
[2017-06-25 06:33] LABS: Glucose,Whole Blood 127 mg/dL (75-99)
[2017-06-25] MEDS: PROCHLORPERAZINE 10 MG TAB PO SCH ×3 (06:33→17:06)
[2017-06-25] MEDS: PANTOPRAZOLE 40 MG TABLET PO SCH ×2 (06:33→06:42)
[2017-06-25 06:34] LABS: Anisocytosis Slight; Basophils % (A) 0 %; Eosinophils # (A) 0.1 k/uL (0-0.7); Eosinophils % (A) 1 %; HCT 27.8 % (34.0-46.0); HGB 8.1 gm/dL (11.4-16.0); Hypochromasia Marked; Lymphocytes # (A) 1.6 k/uL (1.0-4.8); Lymphocytes % (A) 18 %; MCV 75.7 fL (80.0-100.0); Mean Platelet Volume 6.8; Microcytosis Slight; Monocytes # (A) 0.9 k/uL (0-1.0); Monocytes % (A) 10 %; Neutrophils # (A) 6.2 k/uL (1.3-7.7); Neutrophils % (A) 68 %; Platelet Count 457 k/uL (150-450); RBC 3.67 m/uL (3.80-5.40); RDW 17.3 % (11.5-15.5); WBC 9.1 k/uL (3.8-10.6)
[2017-06-25 06:43] LABS: Anion Gap 8 mmol/L; Blood Urea Nitrogen 8 mg/dL (7-17); Calcium 8.9 mg/dL (8.4-10.2); Carbon Dioxide 27 mmol/L (22-30); Chloride 98 mmol/L (98-107); Glucose 123 mg/dL (74-99); Potassium 4.4 mmol/L (3.5-5.1); Sodium 133 mmol/L (137-145)
[2017-06-25] MEDS: IPRATROPIUM-ALBUTEROL 3 ML NEB INHALATION SCH ×4 (08:20→20:44)
[2017-06-25] MEDS: glipiZIDE 5 MG TAB PO SCH (08:33)
[2017-06-25] MEDS: ONDANSETRON 4 MG TAB PO SCH ×2 (08:33→21:35)
[2017-06-25] MEDS: HEPARIN SODIUM,PORCINE 5,000 UNIT/ML 1 ML VIAL SQ SCH ×2 (08:33→21:37)
--- NOTE | 2017-06-25 09:30 | P.PN ---
Progress Note - Text Consult dictated Impression: 1- Recurrent malignant pleural effusion>S/P Thoracentesis 2- Metastatic RCC 3- Anxiety/ADD Rec: 1- Agree with Thoracentesis 2- Clear to discharge from Oncology stand point 3- The patient could not tolerate Votrient > recommended consideration of Opdivo , will re-evaluate next week
--- NOTE | 2017-06-25 10:32 | CONS ---
CONSULTATION DATE OF SERVICE: 06/25/2017. CHIEF COMPLAINT: Shortness of breath. HISTORY OF ILLNESS: Ms. Boyer is a 42-year-old female with the unfortunate recent diagnosis of metastatic renal cell carcinoma, she presented with a large renal mass and was found to be unresectable with extensive abdominal lymphadenopathy, biopsy revealed metastatic cell carcinoma. The patient subsequently had malignant pleural effusion and had palliative paracentesis performed. She was seen by Dr. Spivey was started on Votrient which she failed to tolerate. I am unsure if because of side effects or "inability to take oral pills" for potentially psychiatric causes. The patient stated today that she was not given other options outside of Votrient and she is considering hospice placement. PAST MEDICAL HISTORY: 1. Metastatic renal cell carcinoma as stated above. 2. Malignant pleural effusion. 3. Bronchial asthma. 4. Diabetes mellitus. 5. Hyperlipidemia. 6. Hypothyroidism. 7. ADD. 8. Anxiety. PAST SURGICAL HISTORY: Recent surgery and paracentesis, thoracentesis. CURRENT MEDICATION: Reviewed and listed in the EMR. SOCIAL HISTORY: The patient is a lifetime nonsmoker. Denies any excessive use of alcohol. Resides independently. FAMILY HISTORY: Unremarkable. REVIEW OF SYSTEMS: Progressive shortness of breath that has improved since thoracentesis. EXAMINATION: The patient appeared alert and oriented. Skin is warm and dry. Hair distribution within normal for age and gender. Blood pressure was 127/76, pulse was 103 and regular, respiratory rate was 18, not labored. Temperature was 98.0. There are no pathologic cervical supraclavicular infraclavicular or axillary lymphadenopathy. Trachea was in midline. Chest revealed bilateral dullness at the bases, left more than right. HEART: Sounds are normal and distant. Abdomen was soft. The liver and spleen were not clinically palpable. No masses, tenderness or inguinal lymphadenopathy. Extremities appeared unremarkable. LABORATORY STUDIES: Showed hemoglobin of 8.1, MCV of 75.7, chemistry panel, appears mostly unremarkable. IMPRESSION: 1. Recurrent malignant pleural effusion. Status post 2nd at palliative thoracentesis. 2. Known metastatic renal cell carcinoma, fail to tolerate Votrient. 3. Anxiety/ADD. 4. Microcytic anemia. Likely due to hematuria and iron deficiency. 5. Multiple medical comorbidities, relatively stable. RECOMMENDATION: 1. Agree with recent thoracentesis. 2. Discussed other options of care with the patient, she is a reasonable candidate for Optiva due to failure to tolerate Votrient. 3. She is cleared to be discharged from Oncology standpoint. 4. We will reevaluate the patient next week in an outpatient setting to make final therapeutic decision, the patient stated she might be interested in hospice approach as well. 5. Recommend iron supplement in the form of ferrous gluconate 324 mg daily. We will follow the patient along with you in the hospital later on, after discharge. Thank you for asking me to participate in the care of this patient. RONI / HILARION: [id number] /
[2017-06-25 11:50] LABS: Glucose,Whole Blood 156 mg/dL (75-99)
[2017-06-25] MEDS ORDERED: MAGNESIUM HYDROXIDE 2,400 MG/10 ML CUP PO PRN (12:20)
[2017-06-25] MEDS: SODIUM CHLORIDE 0.9% 1,000 ML IV SCH (13:23)
[2017-06-25] MEDS ORDERED: POLYETHYLENE GLYCOL 3350 17 GM POWD.PACK PO STA (13:54)
--- NOTE | 2017-06-25 13:58 | P.PN ---
Subjective Progress Note Date: 06/25/17 A 42-year-old female patient was referred back to our hospital because of worsening shortness of breath. The patient is very well-known to me for metastatic renal cell carcinoma. The patient was seen approximately 3 weeks ago here in the hospital for increased shortness of breath and at that time the patient had thoracentesis of the left lung to give the patient some symptomatic relief. The pleural fluid was positive for carcinoma, consistent with metastatic disease. The patient was referred back to the hospital because of worsening shortness of breath. At this point in time she has a moderate to large left-sided pleural effusion and she is requesting thoracentesis. This patient has been recently diagnosed metastatic renal cell carcinoma, She was initially worked up by urology Dr. Haile who identified an unresectable infiltrating mass and biopsied the lymph nodes that were positive for poorly differentiated renal cell carcinoma. Patient was then seen by Dr. Spivey in consultation on 05/01/2017 and was supposed to start oral Pazopanib, but due to the intractable nausea and vomiting has not been able to start it yet. Patient is receiving Noble, and fentanyl transdermal patch at home for pain control, as well as Protonix, scopolamine patch, Zofran, Compazine and Reglan. She states she has lost over 40 pounds in the last 3 months, has been able to tolerate oral intake very well due to ongoing nausea and vomiting. CT of abdomen and pelvis on 05/31/2017 showed moderate to large sized left pleural effusion with associated compressive atelectasis and elevated left hemidiaphragm. Large left renal cell neoplasm with local medial and superior retroperitoneal spread causing mass effect on SMA, left renal artery and left renal vein as well as left adrenal gland was redemonstrated on the CT of the abdomen. Some progression in the tumor spread was felt to be present based on the elevation of the left hemidiaphragm and increasing left upper quadrant ascites. On 06/25/2017, the patient is breathing easier compared to yesterday. Note that I performed a thoracentesis on yesterday and a total of 1 L of fluid was aspirated from the patient's lungs. She is less short of breath compared to yesterday. No cervical cough or sputum production. She has on and off nausea. The patient is still feeling weak. She was seen by cardiology and there are considerations for ongoing palliative treatments based on Dr. Lux's opinion. Meanwhile, the patient's hemoglobin is at 8.1. Rest of the electrodes are all within normal limits. Postthoracentesis x-ray shows no evidence pneumothorax. The patient is not sure if she wants a Pleurx catheter in the future. Objective - Vital Signs Vital signs: Vital Signs Temp 97.2 F L 06/25/17 11:38 Pulse 108 H 06/25/17 12:08 Resp 16 06/25/17 11:38 BP 112/70 06/25/17 11:38 Pulse Ox 98 06/25/17 11:38 Intake & Output 06/24/17 06/25/17 06/25/17 18:59 06:59 18:59 Intake Total 450 310 160 Output Total 1100 300 200 Balance -650 10 -40 Weight 59.8 kg 59.3 kg Intake: IV 160 160 0.9 160 160 Oral 450 150 Output: Urine 300 200 Other 1100 Other: Voiding Method Bedside Commode Bedside Commode Bedside Commode # Voids 1 1 - Exam - Constitutional General appearance: no acute distress, thin - EENT Eyes: PERRLA, dentition normal ENT: NA/AT Ears: bilateral: normal - Neck Neck: normal ROM Carotids: bilateral: upstroke normal Thyroid: bilateral: normal size - Respiratory Respiratory: Improved aeration in the left lung base. Breath sounds remain diminished in lung bases most on the left. - Cardiovascular Rhythm: regular Heart sounds: normal: S1, S2 ankle Peripheral Edema: absent: None foot Peripheral Edema: absent: None - Gastrointestinal General gastrointestinal: decreased bowel sounds, no organomegaly, soft, no tenderness - Integumentary Integumentary: normal turgor, pale - Neurologic Neurologic: CNII-XII intact - Musculoskeletal Musculoskeletal: generalized weakness, strength equal bilaterally - Psychiatric Psychiatric: A&O x's 3, appropriate affect, intact judgment & insight - Labs CBC & Chem 7: 06/25/17 06:11 06/25/17 06:11 Labs: Abnormal Lab Results - Last 24 Hours (Table) 06/24/17 06/24/17 06/24/17 Range/Units 12:05 16:53 19:39 RBC (3.80-5.40) m/uL Hgb (11.4-16.0) gm/dL Hct (34.0-46.0) % MCV (80.0-100.0) fL MCH (25.0-35.0) pg MCHC (31.0-37.0) g/dL RDW (11.5-15.5) % Plt Count (150-450) k/uL Sodium (137-145) mmol/L Glucose (74-99) mg/dL POC Glucose (mg/dL) 135 H 185 H (75-99) mg/dL Hemoglobin A1c 7.1 H (4.0-6.0) % 06/25/17 06/25/17 06/25/17 Range/Units 06:11 06:11 06:30 RBC 3.67 L (3.80-5.40) m/uL Hgb 8.1 L (11.4-16.0) gm/dL Hct 27.8 L (34.0-46.0) % MCV 75.7 L (80.0-100.0) fL MCH 22.0 L (25.0-35.0) pg MCHC 29.0 L (31.0-37.0) g/dL RDW 17.3 H (11.5-15.5) % Plt Count 457 H (150-450) k/uL Sodium 133 L (137-145) mmol/L Glucose 123 H (74-99) mg/dL POC Glucose (mg/dL) 127 H (75-99) mg/dL Hemoglobin A1c (4.0-6.0) % 06/25/17 Range/Units 11:49 RBC (3.80-5.40) m/uL Hgb (11.4-16.0) gm/dL Hct (34.0-46.0) % MCV (80.0-100.0) fL MCH (25.0-35.0) pg MCHC (31.0-37.0) g/dL RDW (11.5-15.5) % Plt Count (150-450) k/uL Sodium (137-145) mmol/L Glucose (74-99) mg/dL POC Glucose (mg/dL) 156 H (75-99) mg/dL Hemoglobin A1c (4.0-6.0) % Assessment and Plan Plan: Assessment 1 recurrent large malignant left-sided pleural effusion with secondary shortness of breath, status post thoracentesis and the patient had a total of 1 L of fluid drained from the left lung. The procedure was successful. The patient had significant symptomatic relief. The patient did not have any complication. Postthoracentesis chest x-ray showed no evidence of any pneumothorax. Clinically stable for now. 2 acute hypoxic respiratory failure secondary to above 3 metastatic renal cell carcinoma which is obviously metastatic at this stage with a malignant right-sided pleural effusion 4 protein calorie meditation and ongoing weight loss 5 chronic nausea with episodes of emesis secondary to underlying malignancy 6 diabetes mellitus 7 hypothyroidism 8 hyperlipidemia 9 osteoarthritis 10. Prognosis secondary to above-mentioned comorbidities Plan Discussed the need for a Pleurx catheter in the future. The patient has not made a final decision yet. May need oxygen therapy at home even at 2 L/m nasal cannula. Oncology follow-up regarding potential treatment for renal cell carcinoma. Bronchial asthma is currently inactive and stable. Other comorbidities include diabetes hypertension and hypothyroidism and there are being treated. The patient has episodes of nausea still. No active emesis for now. Long-term prognosis remains poor. We'll continue to follow.
[2017-06-25 15:39] VITALS: RESP 20
[2017-06-25 16:47] LABS: Glucose,Whole Blood 164 mg/dL (75-99)
[2017-06-25] MEDS: HYDROmorphone 2 MG TAB PO PRN ×2 (16:58→22:36)
--- NOTE | 2017-06-25 19:20 | PN ---
PROGRESS NOTE . DATE OF SERVICE: 06/25/2017 This 42-year-old woman is admitted with shortness of breath, had significant left pleural effusion possible malignant. Dr. Curtis performed pleural aspiration about 1100 mL. Pleural fluid catheter has been recommended. No chest pain. No palpitations. No fever. PHYSICAL EXAM: Alert and oriented x3. The pulse 105, blood pressure 150/70, respiration 20, temperature 97.6, pulse ox 98% on 3 L. HEENT is conjunctivae normal. Neck: No jugular venous distention. CARDIOVASCULAR: S1, S2. Respiratory: Breath sounds diminished in the bases. A few scattered rhonchi and crackles. Breath sounds diminished at the bases especially on the left side. ABDOMEN: Soft. Nontender. Central nervous system: No focal deficits. LABS: WBC 9.1, hemoglobin is 8.1, sodium 133. Accu-Cheks are noted. ASSESSMENT: 1. 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 2. History of renal cell carcinoma with metastasis. 3. History of nausea, vomiting possibly multifactorial possibly gastritis previously. 4. History left pleural effusion thoracocentesis. 5. History of asthma. 6. Diabetes type 2. 7. Gastroesophageal reflux disease. 8. Hyperlipidemia. 9. Degenerative joint disease. 10.Hypothyroidism. 11.Attention-deficit disorder/attention-deficit hyperactivity disorder. 12.History of anxiety. RECOMMENDATIONS AND DISCUSSION: Recommend to continue current management. Continue with monitoring. Symptomatic treatment. Otherwise, we will monitor the patient closely. Otherwise at this time I would recommend closely follow with Dr. Curtis. I would also recommend pleural catheter as suggested by Dr. Curtis. Continue rest of medications which are reviewed. Further recommendations to follow. Prognosis guarded. discussed with the patient. Further recommendations to follow. MMODL / IJN: [id number] / [place]
[2017-06-25 21:32] LABS: Glucose,Whole Blood 175 mg/dL (75-99)
[2017-06-26 00:34] VITALS: TEMP 98.9
[2017-06-26 00:42] VITALS: BP 135/82; PULSE 113
--- NOTE | 2017-06-29 10:01 | P.PCN ---
Date of Procedure: 06/24/17 Preoperative Diagnosis: Left-sided pleural effusion Postoperative Diagnosis: Left-sided pleural effusion Procedure(s) Performed: Thoracentesis Anesthesia: local Surgeon: Earl Curtis Estimated Blood Loss (ml): 0 Pathology: none sent Condition: stable Indications for Procedure: Shortness of breath Operative Findings: This procedure was done under sterile techniques. The patient was placed in the usual fashion with arms extended at the bedside table. This was done without ultrasound guidance knowing that the patient a large left-sided pleural effusion. The chest was cleaned using chlorhexidine. The skin was infiltrated by 1% lidocaine and local anesthetics was applied. Following that a scalpel was used to make a small incision in the left hemithorax and after that a thoracentesis catheter was inserted into the left hemithorax and a total of 1.2 L of pleural fluid was aspirated without any major complications. The chest x- ray following the procedure showed adequate expansion of the left lung without evidence of any pneumothorax. The pleural fluid was turbid/bloody in nature. The patient felt well without any shortness of breath or hypoxemia during the procedure. The thoracentesis catheter was removed and appropriate dressing was applied
--- NOTE | 2017-07-02 08:13 | DS ---
DISCHARGE SUMMARY FINAL DIAGNOSIS: 1. Shortness of breath with possible left malignant pleural effusion, status post drainage, thoracocentesis. 2. History of recent renal cell carcinoma with metastasis. 3. Nausea, vomiting, possible acute gastritis. 4. History of pleural effusion with thoracocentesis. 5. History of asthma. DISCHARGE DISPOSITION: Patient left the hospital AGAINST MEDICAL ADVICE. HISTORY OF PRESENT ILLNESS: This 42-year-old woman with a past medical history admitted with significant pleural effusion. Dr. Curtis performed thoracocentesis and recommended Pleurx catheter insertion, but however the patient left the hospital AGAINST MEDICAL ADVICE. Prognosis extremely guarded. Please refer to multiple progress notes and staff notes for information. MMODL / IJN: [id number] /
== END 2017-06-25 23:10 | disposition left against medical advice (07) ==
LOC: INTOOBSV 06-24 00:12 → 6SEL 06-24 00:12
PROVIDERS: ADMIT Hospitalist; ATTEND Hospitalist
DX: C64.2 Malignant neoplasm of left kidney, except renal pelvis (principal); J91.0 Malignant pleural effusion; J96.01 Acute respiratory failure with hypoxia; C77.2 Secondary and unspecified malignant neoplasm of intra-abdominal lymph nodes; C78.6 Secondary malignant neoplasm of retroperitoneum and peritoneum; C79.72 Secondary malignant neoplasm of left adrenal gland; E46 Unspecified protein-calorie malnutrition; R18.8 Other ascites; E11.42 Type 2 diabetes mellitus with diabetic polyneuropathy; Z66 Do not resuscitate; G43.909 Migraine, unspecified, not intractable, without status migrainosus; K42.9 Umbilical hernia without obstruction or gangrene; K58.1 Irritable bowel syndrome with constipation; J45.909 Unspecified asthma, uncomplicated; E78.5 Hyperlipidemia, unspecified; K21.9 Gastro-esophageal reflux disease without esophagitis; M19.91 Primary osteoarthritis, unspecified site; E03.9 Hypothyroidism, unspecified; F90.9 Attention-deficit hyperactivity disorder, unspecified type; R11.2 Nausea with vomiting, unspecified; F41.9 Anxiety disorder, unspecified; D50.9 Iron deficiency anemia, unspecified; F32.9 Major depressive disorder, single episode, unspecified; L30.9 Dermatitis, unspecified; F98.8 Other specified behavioral and emotional disorders with onset usually occurring in childhood and adolescence; Z68.21 Body mass index [BMI] 21.0-21.9, adult; Z79.84 Long term (current) use of oral hypoglycemic drugs; Z79.891 Long term (current) use of opiate analgesic; Z79.899 Other long term (current) drug therapy; Z87.81 Personal history of (healed) traumatic fracture; Z90.49 Acquired absence of other specified parts of digestive tract; Z88.5 Allergy status to narcotic agent
CPT/HCPCS: 32554; 94640 ×3; 94760; 80048; 85025; 83036; 71010; G0379; G0378 ×2; S0183 ×2; J1170 ×2; J1644 ×2